=== PATIENT | male | born 1965 | race Caucasian/White ===

== ENCOUNTER 2017-06-11 11:35 | Emergency (ER) | payer OTHER ==
[~2017-06-11] VITALS: Ht 177.8 cm; Wt 83.9 kg
[2017-06-11 12:27] VITALS: BP 161/97
--- NOTE | 2017-06-11 12:42 | PHYS DOC ---
Past Medical History Past Medical History: Hypertension Past Surgical History: Other Additional Past Surgical Histo: RIGHT FINGER Alcohol Use: None Drug Use: None Adult General Chief Complaint Chief Complaint: LACERATION/AVULSION [facility] HPI Patient is a 51 year old male presents to the emergency department stating that he wash prednisone. He states that he was laying tape daily yesterday and when he went to pull on it and then came up. He was using a box knife to cut the tape in the boxing inspector knife slipped and hit him in to the left forearm. Patient has an approximately 2 cm laceration noted. No bleeding or drainage coming from the site. Patient has full range of motion of the lower extremity. Patient is unsure when his last tetanus immunization occurred. Review of Systems Review of Systems Constitutional: Denies fever or chills [] Eyes: Denies change in visual acuity, redness, or eye pain [] HENT: Denies nasal congestion or sore throat [] Respiratory: Denies cough or shortness of breath [] Cardiovascular: No additional information not addressed in HPI [] GI: Denies abdominal pain, nausea, vomiting, bloody stools or diarrhea [] : Denies dysuria or hematuria [] Musculoskeletal: Denies back pain or joint pain [] Integument: Denies rash or skin lesions. Laceration left forearm Neurologic: Denies headache, focal weakness or sensory changes [] Endocrine: Denies polyuria or polydipsia [] Physical Exam Physical Exam Constitutional: Well developed, well nourished, no acute distress, non-toxic appearance. [] HENT: Normocephalic, atraumatic, bilateral external ears normal, oropharynx moist, no oral exudates, nose normal. [] Eyes: PERRLA, EOMI, conjunctiva normal, no discharge. [] Neck: Normal range of motion, no tenderness, supple, no stridor. [] Cardiovascular:Heart rate regular rhythm,] Lungs & Thorax: No respiratory distress noted Skin: Warm, dry, no erythema, no rash. 2 cm laceration noted to the left forearm. Site appears to be clean. Site was washed with soap and water. Site was then Steri-Stripped closed. Back: No tenderness Extremities: No tenderness, no cyanosis, no clubbing, ROM intact, no edema. [] Neurologic: Alert and oriented X 3, normal motor function, normal sensory function, no focal deficits noted. [] Psychologic: Affect normal, judgement normal, mood normal. [] Current Patient Data Vital Signs Vital Signs Date Time Temp Pulse Resp B/P (MAP) Pulse Ox O2 Delivery O2 Flow Rate FiO2 06/11/17 12:27 97.8 82 18 96 Room Air 97.8 EKG EKG [] Radiology/Procedures Radiology/Procedures [] Course & Med Decision Making Course & Med Decision Making Pertinent Labs and Imaging studies reviewed. (See chart for details) Patient's tetanus immunization was updated here in the emergency department. He was recommended to keep the area clean and dry. Signs and symptoms of infection was provided to the patient. Patient will be discharged home in stable condition. All questions were answered at patient's bedside. [] Dragon Disclaimer Dragon Disclaimer This electronic medical record was generated, in whole or in part, using a voice recognition dictation system. Departure Departure Impression: Primary Impression: Laceration Disposition: 01 HOME, SELF-CARE Condition: STABLE Referrals: NO PCP (PCP) Patient Instructions: Laceration Care, Adult, [id number], Sterile Tape Wound Closure Additional Instructions: Activity as tolerated. Keep the area clean and dry. Clean the site with soap and water daily. Watch for signs and symptoms of infection: Redness, warmth, tenderness or any yellow/greenish drainage of a come from the site. Steri-Strips should follow-up in approximately 7-10 days. Return back to emergency prior signs symptoms of become worse. ISMAEL ERNANDEZ APRN Jun 11, 2017 12:42
[2017-06-11] MEDS ORDERED: DIPHTH,PERTUSS(ACELL),TET TOX 0.5 ML DISP.SYRIN. VAX IM ONE (13:15)
== END 2017-06-11 13:33 | disposition home or self-care (01) ==
LOC: ER 11:35
DX: S51.812A Laceration without foreign body of left forearm, initial encounter (principal); I10 Essential (primary) hypertension; W26.0XXA Contact with knife, initial encounter; Y93.89 Activity, other specified; Y99.8 Other external cause status; Y92.89 Other specified places as the place of occurrence of the external cause
CPT/HCPCS: 90471; 90715; 99283-25

== ENCOUNTER 2019-12-28 17:24 | Inpatient (IN) | payer BC ==
[2019-12-28] VITALS (9 sets, daily range): BP systolic 109–158; BP diastolic 74–89
[~2019-12-28] VITALS: Ht 176.5 cm; Wt 91.0 kg
[2019-12-28] MEDS ORDERED: SEVOFLURANE 61 TO 120 MINUTES. IH ONE (17:29)
[2019-12-28] MEDS ORDERED: ROCURONIUM 50 MG/5 ML VIAL. ONE (17:30)
[2019-12-28] MEDS ORDERED: NEOSTIGMINE METHYLSULFATE 5 MG/5 ML SYRINGE. ONE (17:30)
[2019-12-28] MEDS ORDERED: fentaNYL PF VIAL 100 MCG/2 ML VIAL ONE (17:30)
[2019-12-28] MEDS ORDERED: SUCCINYLCHOLINE 200 MG/10 ML VIAL. ONE (17:30)
[2019-12-28] MEDS ORDERED: GLYCOPYRROLATE 1 MG/5 ML VIAL. ONE (17:30)
[2019-12-28] MEDS ORDERED: MIDAZOLAM HCL/PF 2 MG/2 ML VIAL. ONE (17:30)
[2019-12-28] MEDS ORDERED: KETOROLAC 30 MG/ML VIAL. ONE (17:31)
[2019-12-28] MEDS ORDERED: PROPOFOL 20 ML IV ONE (17:31)
[2019-12-28] MEDS ORDERED: DEXAMETHASONE SOD PHOS 4 MG/ML VIAL ONE (17:31)
[2019-12-28] MEDS ORDERED: LIDOCAINE 2% PF 5 ML VIAL. ONE (17:31)
[2019-12-28] MEDS ORDERED: ONDANSETRON PF 4 MG/2 ML VIAL. ONE (17:31)
[2019-12-28] MEDS ORDERED: BUPIVACAINE-EPI 0.5%-1:200000 MPF 30 ML VIAL. ONE (17:34)
--- NOTE | 2019-12-28 17:40 | PDOC2 ---
CONSULT Date of Consult Date of Consult DATE: 12/28/19 TIME: 17:35 Reason for Consult Reason for Consult: acute appendicitis Referring Physician Referring Physician: [facility] ED Identification/Chief Complaint Chief Complaint RLQ pain Source Source: Chart review, Patient History of Present Illness Reason for Visit: Rafy is a 54 yo male who presented to the [facility] ED and CT there showed an acute appendicitis. He is brought for appendectomy Past Medical History Cardiovascular: HTN Past Surgical History Past Surgical History: Hernia Repair Family History Family History: No Significant Social History Quit ALCOHOL: none Current Medications Current Medications Current Medications Sevoflurane (Ultane) 60 ml STK-MED ONCE IH ; Start 12/28/19 at 17:29; Stop 12/28/19 at 17:30; Status DC Midazolam HCl (Versed) 2 mg STK-MED ONCE .ROUTE ; Start 12/28/19 at 17:30; Stop 12/28/19 at 17:30; Status DC Fentanyl Citrate (Fentanyl 2ml Vial) 100 mcg STK-MED ONCE .ROUTE ; Start 12/28/19 at 17:30; Stop 12/28/19 at 17:30; Status DC Glycopyrrolate (Robinul) 1 mg STK-MED ONCE .ROUTE ; Start 12/28/19 at 17:30; Stop 12/28/19 at 17:31; Status DC Neostigmine [place] (Neostigmine Methylsulfate) 5 mg STK-MED ONCE .ROUTE ; Start 12/28/19 at 17:30; Stop 12/28/19 at 17:31; Status DC Rocuronium [place] (Zemuron) 50 mg STK-MED ONCE .ROUTE ; Start 12/28/19 at 17:30; Stop 12/28/19 at 17:31; Status DC Succinylcholine Chloride (Anectine) 200 mg STK-MED ONCE .ROUTE ; Start 12/28/19 at 17:30; Stop 12/28/19 at 17:31; Status DC Dexamethasone Sodium Phosphate (Decadron) 4 mg STK-MED ONCE .ROUTE ; Start 12/28/19 at 17:31; Stop 12/28/19 at 17:31; Status DC Ondansetron HCl (Zofran) 4 mg STK-MED ONCE .ROUTE ; Start 12/28/19 at 17:31; Stop 12/28/19 at 17:31; Status DC Ketorolac Tromethamine (Toradol 30mg Vial) 30 mg STK-MED ONCE .ROUTE ; Start 12/28/19 at 17:31; Stop 12/28/19 at 17:31; Status DC Lidocaine HCl (Lidocaine Pf 2% Vial) 5 ml STK-MED ONCE .ROUTE ; Start 12/28/19 at 17:31; Stop 12/28/19 at 17:31; Status DC Propofol 20 ml @ As Directed STK-MED ONCE IV ; Start 12/28/19 at 17:31; Stop 12/28/19 at 17:31; Status DC Bupivacaine HCl/ Epinephrine Bitart (Sensorcain-Epi 0.5%-1:550053 Mpf) 30 ml STK-MED ONCE .ROUTE ; Start 12/28/19 at 17:34; Stop 12/28/19 at 17:34; Status DC Allergies Allergies: Coded Allergies: prochlorperazine (Verified Allergy, Unknown, 06/11/17) ROS Review of System negative with exception of present complaints Physical Exam General: Alert, No acute distress HEENT: Atraumatic Lungs: Normal air movement Heart: Regular rate Abdomen: Soft, Other (TTP in the RLQ) Extremities: No clubbing Neuro: Normal speech Labs Labs results from [facility] are reviewed Images Images CT done at [facility] is reviewed Assessment/Plan Assessment/Plan acute appendicitis explained risks of appendectomy including but not limited to bleeding, infection, injury to surrounding structures requiring more surgery later, possible open procedure he will proceed Thanks for consult ALICE BARRERA MD Dec 28, 2019 17:40
[2019-12-28] MEDS: IV RINGERS,LACTATED 1000ML 1,000 ML IV SCH ×2 (17:45→19:43)
[2019-12-28] MEDS ORDERED: MORPHINE SULFATE 2 MG/ML VIAL. IV PRN (18:00)
[2019-12-28] MEDS ORDERED: ONDANSETRON PF 4 MG/2 ML VIAL. IV PRN (18:00)
[2019-12-28] MEDS ORDERED: LIDOCAINE 1% PF 2 ML VIAL. ID PRN (18:00)
[2019-12-28] MEDS ORDERED: PROCHLORPERAZINE 10 MG/2 ML VIAL. IV PRN (18:00)
[2019-12-28] MEDS ORDERED: HYDROmorphone 2 MG/ML VIAL IV PRN ×2 (18:00→19:15)
[2019-12-28] MEDS ORDERED: fentaNYL PF VIAL 100 MCG/2 ML VIAL IV PRN ×2 (18:00)
[2019-12-28] MEDS: IV NORMAL SALINE 1000ML BAG 1,000 ML IV SCH (19:13)
[2019-12-28] MEDS ORDERED: NALOXONE 0.4 MG/ML VIAL. IV PRN (19:15)
[2019-12-28] MEDS ORDERED: DEXTROSE 50% 25 GM / 50ML DISP.SYRIN. IV PRN (19:15)
[2019-12-28] MEDS ORDERED: 0.9 % SODIUM CHLORIDE 10 ML DISP.SYRIN. IV PRN (19:15)
--- NOTE | 2019-12-28 19:23 | PDOC ---
BRIEF OPERATIVE NOTE Date: Dec 28, 2019 Pre-Op Diagnosis acute appendicitis Post-Op Diagnosis gangrenous appendicitis Procedure Performed l/s appendectomy Surgeon Jose Anesthesia Type: General Blood Loss 10cc IV Fluid 1200cc Urine Output 200cc Specimens Obtained appendix Findings gangrenous appendicitis Complications none Operative Note Wk # [id number] ALICE BARRERA MD Dec 28, 2019 19:23
--- NOTE | 2019-12-28 19:44 | OP ---
DATE OF SURGERY: 12/28/2019 PREOPERATIVE DIAGNOSIS: Acute appendicitis. POSTOPERATIVE DIAGNOSIS: Gangrenous appendicitis. PROCEDURE: Laparoscopic appendectomy. SURGEON: Tate Barrera MD ANESTHESIA: General endotracheal. ESTIMATED BLOOD LOSS: 10 mL. INTRAVENOUS FLUIDS: 1200 mL. URINE OUTPUT: 200 mL. FINDINGS: The appendix was gangrenous and friable without obvious periappendiceal abscess. DESCRIPTION OF PROCEDURE: The patient brought to the operating suite, given a general endotracheal anesthetic. Randle catheter placed to dependent drainage and the abdomen prepped and draped in usual sterile fashion. A supraumbilical incision was infiltrated with local anesthetic, incised and a 5 mm Visiport used to gain access into the abdominal cavity, taking care to avoid injury to abdominal contents. Pneumoperitoneum established. Camera inserted and under direct vision, the suprapubic and left lower quadrant ports were placed. The supraumbilical port converted to 12 mm for instrumentation. Table in Trendelenburg rolled to the left. We identified the base of the appendix and created an opening between it and the mesoappendix. This allowed passage of the Endo-LORENZO tissue load to amputate the appendix. Similarly, a vascular load was used on the mesoappendix. Hemostasis augmented with some medium large clips and the appendix was placed in an EndoCatch bag. A 19-Slovak round Javy drain was brought through a right upper quadrant stab wound and placed in the pericolic gutter and true pelvis. Secured with a silk stitch. Table returned to level. Appendix delivered through the supraumbilical port site, which was then closed with 0 Vicryl suture. At 6 cm of water intra-abdominal pressure, no bleeding from the umbilical closure site or from the left lower quadrant port site or suprapubic port site after their removal. Skin incisions closed loosely with ang. Randle catheter removed. The patient was awakened from his anesthetic and taken to the recovery room in satisfactory condition. TATE BARRERA MD DR: RHONDA/tyler JOB#: [id number] / [id number]
--- NOTE | 2019-12-28 19:45 | NUR ---
The patient, JACKLYN BRIZUELA, 54 y/o, M admitted by ABRAM SCHUMACHER III, DO, was given written information regarding hospital policies, unit procedures and contact persons. RN received report from Ivana CURTIS in PACU at 194, patient was transported from PACU to room 418 at 2000 via bed. RN performed a head to toe assessment at that time, VSS, temp 99.4, and pain rated a 5/10. Bed is in lowest locked position and call light within reach. Valuables were checked and left in the room with the patient. RN will continue to monitor patient closely.
[2019-12-28] MEDS: DOCUSATE SODIUM 100 MG CAPSULE. PO SCH (21:12)
[2019-12-28] MEDS: POTASSIUM CL 20MEQ-0.45% NACL 1,000 ML IV SCH (22:36)
[2019-12-29] MEDS: oxyCODONE/APAP 5/325 1 TAB TABLET PO PRN ×4 (02:20→18:14)
[2019-12-29 02:42] VITALS: BP 127/73
[2019-12-29] MEDS ORDERED: INFLUENZA VAX SCREEN BY RX. MC PRN (04:30)
[2019-12-29 05:37] LABS: BASO % 0 % (0-3); EOS % 0 % (0-3); HEMATOCRIT 43.2 % (39.0-53.0); HEMOGLOBIN 14.7 g/dL (13.0-17.5); LYMPH # 0.4 x10^3/uL (1.0-4.8); LYMPH % 2 % (24-48); MEAN CORPUSCULAR HEMOGLOBIN 30 pg (25-35); MEAN CORPUSCULAR HGB CONC 34 g/dL (31-37); MEAN CORPUSCULAR VOLUME 88 fL (79-100); MONO % 6 % (0-9); NEUT # 16.6 x10^3/uL (1.8-7.7); NEUT % 92 % (31-73); PLATELET COUNT 189 x10^3/uL (140-400); RED BLOOD COUNT 4.89 x10^6/uL (4.30-5.70); RED CELL DISTRIBUTION WIDTH 13.8 % (11.5-14.5)
[2019-12-29 05:48] LABS: CALCIUM 8.5 mg/dL (8.5-10.1); CREATININE 1.1 mg/dL (0.7-1.3); GFR 69.5; POTASSIUM 4.2 mmol/L (3.5-5.1)
[2019-12-29 07:00] VITALS: BP 125/79
[2019-12-29] MEDS ORDERED: FLU VAX QS 2019-20 (36MOS+)/PF 0.5 ML SYRINGE. VAX IM ONE (09:00)
[2019-12-29] MEDS: POTASSIUM CL 20MEQ-0.45% NACL 1,000 ML IV SCH ×2 (09:18→13:12)
[2019-12-29] MEDS: DOCUSATE SODIUM 100 MG CAPSULE. PO SCH ×2 (09:19→22:10)
[2019-12-29] MEDS: ENOXAPARIN 40 MG/0.4 ML SYRINGE. SQ SCH (09:20)
--- NOTE | 2019-12-29 09:40 | PDOC1 ---
History and Physical Date of Admission Date of Admission DATE: 12/29/19 TIME: 09:39 Identification/Chief Complaint Chief Complaint TRANSFER FROM [facility] Past Medical History Past Medical History Past Medical History Cardiovascular: HTN Past Surgical History Past Surgical History: Hernia Repair Family History Family History: HTN Social History Quit ALCOHOL: none Cardiovascular: HTN Hepatobiliary: No pertinent hx Psych: No pertinent hx Infectious disease: No pertinent hx ENT: No pertinent hx Endocrine: Diabetes Dermatology: No pertinent hx Past Surgical History Past Surgical History: Hernia Repair Family History Family History: No Significant, Hypertension Social History Smoke: No ALCOHOL: none Drugs: None Current Medications Current Medications Current Medications Sevoflurane (Ultane) 60 ml STK-MED ONCE IH ; Start 12/28/19 at 17:29; Stop 12/28/19 at 17:30; Status DC Midazolam HCl (Versed) 2 mg STK-MED ONCE .ROUTE ; Start 12/28/19 at 17:30; Stop 12/28/19 at 17:30; Status DC Fentanyl Citrate (Fentanyl 2ml Vial) 100 mcg STK-MED ONCE .ROUTE ; Start 12/28/19 at 17:30; Stop 12/28/19 at 17:30; Status DC Glycopyrrolate (Robinul) 1 mg STK-MED ONCE .ROUTE ; Start 12/28/19 at 17:30; Stop 12/28/19 at 17:31; Status DC Neostigmine [place] (Neostigmine Methylsulfate) 5 mg STK-MED ONCE .ROUTE ; Start 12/28/19 at 17:30; Stop 12/28/19 at 17:31; Status DC Rocuronium [place] (Zemuron) 50 mg STK-MED ONCE .ROUTE ; Start 12/28/19 at 17:30; Stop 12/28/19 at 17:31; Status DC Succinylcholine Chloride (Anectine) 200 mg STK-MED ONCE .ROUTE ; Start 12/28/19 at 17:30; Stop 12/28/19 at 17:31; Status DC Dexamethasone Sodium Phosphate (Decadron) 4 mg STK-MED ONCE .ROUTE ; Start 12/28/19 at 17:31; Stop 12/28/19 at 17:31; Status DC Ondansetron HCl (Zofran) 4 mg STK-MED ONCE .ROUTE ; Start 12/28/19 at 17:31; Stop 12/28/19 at 17:31; Status DC Ketorolac Tromethamine (Toradol 30mg Vial) 30 mg STK-MED ONCE .ROUTE ; Start 12/28/19 at 17:31; Stop 12/28/19 at 17:31; Status DC Lidocaine HCl (Lidocaine Pf 2% Vial) 5 ml STK-MED ONCE .ROUTE ; Start 12/28/19 at 17:31; Stop 12/28/19 at 17:31; Status DC Propofol 20 ml @ As Directed STK-MED ONCE IV ; Start 12/28/19 at 17:31; Stop 12/28/19 at 17:31; Status DC Metronidazole 100 ml @ 100 mls/hr 1X PREOP PRN IV PER PROTOCOL Last administered on 12/28/19at 17:37; Start 12/28/19 at 17:45; Stop 12/29/19 at 18:45 Bupivacaine HCl/ Epinephrine Bitart (Sensorcain-Epi 0.5%-1:023188 Mpf) 30 ml STK-MED ONCE .ROUTE Last administered on 12/28/19at 18:11; Start 12/28/19 at 17:34; Stop 12/28/19 at 17:34; Status DC Metronidazole 100 ml @ As Directed STK-MED ONCE IV ; Start 12/28/19 at 17:36; Stop 12/28/19 at 17:36; Status DC Metronidazole 100 ml @ 100 mls/hr 1X ONCE IV ; Start 12/28/19 at 17:45; Stop 12/28/19 at 18:44; Status DC Ondansetron HCl (Zofran) 4 mg PRN Q6HRS PRN IV NAUSEA/VOMITING; Start 12/28/19 at 18:00; Stop 12/29/19 at 17:59 Fentanyl Citrate (Fentanyl 2ml Vial) 25 mcg PRN Q5MIN PRN IV MILD PAIN 1-3; Start 12/28/19 at 18:00; Stop 12/29/19 at 17:59 Fentanyl Citrate (Fentanyl 2ml Vial) 50 mcg PRN Q5MIN PRN IV MODERATE TO SEVERE PAIN; Start 12/28/19 at 18:00; Stop 12/29/19 at 17:59 Morphine Sulfate (Morphine Sulfate) 1 mg PRN Q10MIN PRN IV SEVERE PAIN 7-10; Start 12/28/19 at 18:00; Stop 12/29/19 at 17:59 Ringer's Solution 1,000 ml @ 30 mls/hr Q24H IV Last administered on 12/28/19at 19:43; Start 12/28/19 at 17:50; Stop 12/29/19 at 05:49; Status DC Lidocaine HCl (Xylocaine-Mpf 1% 2ml Vial) 2 ml PRN 1X PRN ID PRIOR TO IV START; Start 12/28/19 at 18:00; Stop 12/29/19 at 17:59 Hydromorphone HCl (Dilaudid) 0.5 mg PRN Q10MIN PRN IV SEV PAIN, Second choice; Start 12/28/19 at 18:00; Stop 12/29/19 at 17:59 Prochlorperazine Edisylate (Compazine) 5 mg PACU PRN PRN IV NAUSEA, MRX1; Start 12/28/19 at 18:00; Stop 12/29/19 at 17:59; Status UNV Enoxaparin Sodium (Lovenox 40mg Syringe) 40 mg DAILY SQ Last administered on 12/29/19at 09:20; Start 12/29/19 at 09:00 Sodium Chloride (Normal Saline Flush) 3 ml QSHIFT PRN IV AFTER MEDS AND BLOOD DRAWS; Start 12/28/19 at 19:15 Potassium Chloride/Sodium Chloride 1,000 ml @ 125 mls/hr Q8H IV Last administered on 12/29/19at 09:18; Start 12/28/19 at 20:00 Dextrose (Dextrose 50%-Water Syringe) 12.5 gm PRN Q15MIN PRN IV SEE COMMENTS; Start 12/28/19 at 19:15 Oxycodone/ Acetaminophen (Percocet 5/325) 1 tab PRN Q4HRS PRN PO MILD PAIN, 1ST CHOICE Last administered on 12/29/19at 09:19; Start 12/28/19 at 19:15 Oxycodone/ Acetaminophen (Percocet 5/325) 2 tab PRN Q4HRS PRN PO MODERATE PAIN, SEVERE PAIN; Start 12/28/19 at 19:15 Naloxone HCl (Narcan) 0.4 mg PRN Q2MIN PRN IV SEE INSTRUCTIONS; Start 12/28/19 at 19:15 Sodium Chloride 1,000 ml @ 25 mls/hr Q24H IV ; Start 12/28/19 at 19:13 Hydromorphone HCl (Dilaudid) 1 mg PRN Q4HRS PRN IV SEVERE PAIN 7-10; Start 12/28/19 at 19:15 Docusate Sodium (Colace) 100 mg BID PO Last administered on 12/29/19at 09:19; Start 12/28/19 at 21:00 Ondansetron HCl (Zofran) 4 mg PRN Q6HRS PRN IVP NAUESA, 1ST CHOICE; Start 12/28/19 at 19:15 Cefazolin Sodium/ Dextrose 50 ml @ 100 mls/hr Q8HRS IV Last administered on 12/29/19at 05:22; Start 12/28/19 at 22:00 Metronidazole 100 ml @ 100 mls/hr Q12HR IV Last administered on 12/29/19at 09:18; Start 12/28/19 at 21:00 Info (FLU VACCINE SCREEN per RX) 1 each PRN 1X PRN MC SEE COMMENTS; Start 12/29/19 at 04:30; Status UNV Influenza Virus Vaccine Quadrival (Afluria Quad 2019-20 (3yr Up) Syringe) 0.5 ml ONCE ONCE VAX IM Last administered on 12/29/19at 09:21; Start 12/29/19 at 09:00; Stop 12/29/19 at 09:01; Status DC Allergies Allergies: Coded Allergies: prochlorperazine (Verified Allergy, Unknown, 06/11/17) ROS Review of System 14 PT ROS OTHERWISE NEG General: No: Chills, Night Sweats, Fatigue, Malaise, Appetite, Other PSYCHOLOGICAL ROS: No: Anxiety, Behavioral Disorder, Concentration difficultie, Decreased libido, Depression, Disorientation, Hallucinations, Hostility, Irritablity, Memory difficulties, Mood Swings, Obsessive thoughts, Physical abuse, Sexual abuse, Sleep disturbances, Suicidal ideation, Other Eyes: No Blurry vision, No Decreased vision, No Double vision, No Dry eyes, No Excessive tearing, No Eye Pain, No Itchy Eyes, No Loss of vision, No Photophobia, No Scotomata, No Uses contacts, No Uses glasses, No Other HEENT: No: Heacaches, Visual Changes, Hearing change, Nasal congestion, Nasal discharge, Oral lesions, Sinus pain, Sore Throat, Epistaxis, Sneezing, Snoring, Tinnitus, Vertigo, Vocal changes, Other Hematological and Lymphatic: No: Bleeding Problems, Blood Clots, Blood Transfusions, Brusing, Night Sweats, Pallor, Swollen Lymph Nodes, Other Breast: No New/Changing Breast Lumps, No Nipple changes, No Nipple discharge, No Other Respiratory: No: Cough, Hemoptysis, Orthopnea, Pleuritic Pain, Shortness of breath, SOB with excertion, Sputum Changes, Stridor, Tachypnea, Wheezing, Other Cardiovascular: No Chest Pain, No Palpitations, No Orthopnea, No Paroxysmal Noc. Dyspnea, No Edema, No Lt Headedness, No Other Gastrointestinal: Yes Abdominal Pain Genitourinary: No Dysuria, No Frequency, No Incontinence, No Hematuria, No Retention, No Discharge, No Urgency, No Pain, No Flank Pain, No Other, No , No , No , No , No , No , No Musculoskeletal: No Gait Disturbance, No Joint Pain, No Joint Stiffness, No Joint Swelling, No Muscle Pain, No Muscular Weakness, No Pain In:, No Swelling In:, No Other Neurological: No Behavorial Changes, No Bowel/Bladder ControlChng, No Confusion, No Dizziness, No Gait Disturbance, No Headaches, No Impaired Coord/balance, No Memory Loss, No Numbness/Tingling, No Seizures, No Speech Problems, No Tremors, No Visual Changes, No Weakness, No Other Skin: No Dry Skin, No Eczema, No Hair Changes, No Lumps, No Mole Changes, No Mottling, No Nail Changes, No Pruritus, No Rash, No Skin Lesion Changes, No Other, No Acne Physical Exam General: Alert, Oriented X3, Cooperative, No acute distress HEENT: PERRLA Lungs: Clear to auscultation, Normal air movement Heart: RRR Abdomen: No hepatosplenomegaly Rectal Exam: not examined PELVIC: Examination not indicated Extremities: No cyanosis Skin: No breakdown Neuro: Normal speech, Cranial nerves 3-12 NL Psych/Mental Status: Mental status NL, Mood NL Vitals Vitals Vital Signs Date Time Temp Pulse Resp B/P (MAP) Pulse Ox O2 Delivery O2 Flow Rate FiO2 12/29/19 09:19 16 Nasal Cannula 2.0 12/29/19 07:00 97.9 83 125/79 (94) 96 97.9 Labs Labs Laboratory Tests Test 12/29/19 04:40 White Blood Count 18.0 x10^3/uL (4.0-11.0) Red Blood Count 4.89 x10^6/uL (4.30-5.70) Hemoglobin 14.7 g/dL (13.0-17.5) Hematocrit 43.2 % (39.0-53.0) Mean Corpuscular Volume 88 fL (79-100) Mean Corpuscular Hemoglobin 30 pg (25-35) Mean Corpuscular Hemoglobin Concent 34 g/dL (31-37) Red Cell Distribution Width 13.8 % (11.5-14.5) Platelet Count 189 x10^3/uL (140-400) Neutrophils (%) (Auto) 92 % (31-73) Lymphocytes (%) (Auto) 2 % (24-48) Monocytes (%) (Auto) 6 % (0-9) Eosinophils (%) (Auto) 0 % (0-3) Basophils (%) (Auto) 0 % (0-3) Neutrophils # (Auto) 16.6 x10^3/uL (1.8-7.7) Lymphocytes # (Auto) 0.4 x10^3/uL (1.0-4.8) Monocytes # (Auto) 1.0 x10^3/uL (0.0-1.1) Eosinophils # (Auto) 0.0 x10^3/uL (0.0-0.7) Basophils # (Auto) 0.0 x10^3/uL (0.0-0.2) Sodium Level 140 mmol/L (136-145) Potassium Level 4.2 mmol/L (3.5-5.1) Chloride Level 105 mmol/L (98-107) Carbon Dioxide Level 24 mmol/L (21-32) Anion Gap 11 (6-14) Blood Urea Nitrogen 16 mg/dL (8-26) Creatinine 1.1 mg/dL (0.7-1.3) Estimated GFR (Cockcroft-Gault) 69.5 Glucose Level 159 mg/dL (70-99) Calcium Level 8.5 mg/dL (8.5-10.1) Laboratory Tests Test 12/29/19 04:40 White Blood Count 18.0 x10^3/uL (4.0-11.0) Red Blood Count 4.89 x10^6/uL (4.30-5.70) Hemoglobin 14.7 g/dL (13.0-17.5) Hematocrit 43.2 % (39.0-53.0) Mean Corpuscular Volume 88 fL (79-100) Mean Corpuscular Hemoglobin 30 pg (25-35) Mean Corpuscular Hemoglobin Concent 34 g/dL (31-37) Red Cell Distribution Width 13.8 % (11.5-14.5) Platelet Count 189 x10^3/uL (140-400) Neutrophils (%) (Auto) 92 % (31-73) Lymphocytes (%) (Auto) 2 % (24-48) Monocytes (%) (Auto) 6 % (0-9) Eosinophils (%) (Auto) 0 % (0-3) Basophils (%) (Auto) 0 % (0-3) Neutrophils # (Auto) 16.6 x10^3/uL (1.8-7.7) Lymphocytes # (Auto) 0.4 x10^3/uL (1.0-4.8) Monocytes # (Auto) 1.0 x10^3/uL (0.0-1.1) Eosinophils # (Auto) 0.0 x10^3/uL (0.0-0.7) Basophils # (Auto) 0.0 x10^3/uL (0.0-0.2) Sodium Level 140 mmol/L (136-145) Potassium Level 4.2 mmol/L (3.5-5.1) Chloride Level 105 mmol/L (98-107) Carbon Dioxide Level 24 mmol/L (21-32) Anion Gap 11 (6-14) Blood Urea Nitrogen 16 mg/dL (8-26) Creatinine 1.1 mg/dL (0.7-1.3) Estimated GFR (Cockcroft-Gault) 69.5 Glucose Level 159 mg/dL (70-99) Calcium Level 8.5 mg/dL (8.5-10.1) VTE Prophylaxis Ordered VTE Prophylaxis Devices: Yes VTE Pharmacological Prophylaxi: Yes Assessment/Plan Assessment/Plan impression Acute appendicitis./Gangrenous appendicitis. admit Laparoscopic appendectomy. IV Zosyn CBC in am RECORD drain output AMANDA CAMP MD Dec 29, 2019 09:40
--- NOTE | 2019-12-29 10:11 | PDOC ---
SURGICAL PROGRESS NOTE Subjective POD 1 l/s appendectomy some pain no n/v Vital Signs Vital Signs Date Time Temp Pulse Resp B/P (MAP) Pulse Ox O2 Delivery O2 Flow Rate FiO2 12/29/19 09:19 16 Nasal Cannula 2.0 12/29/19 07:00 97.9 83 125/79 (94) 96 97.9 I&O Intake and Output 12/29/19 07:00 Intake Total 2200 ml Output Total 1420 ml Balance 780 ml Intake Oral 700 ml IV Total 1500 ml Output Urine Total 1200 ml Drainage Total 20 ml Estimated Blood Loss 200 ml PATIENT HAS A PIZANO: No General: Alert, Oriented X3, No acute distress Abdomen: Other (distended, soft, HEMA with some serosanguineous output) Labs Laboratory Tests Test 12/29/19 04:40 White Blood Count 18.0 x10^3/uL (4.0-11.0) Red Blood Count 4.89 x10^6/uL (4.30-5.70) Hemoglobin 14.7 g/dL (13.0-17.5) Hematocrit 43.2 % (39.0-53.0) Mean Corpuscular Volume 88 fL (79-100) Mean Corpuscular Hemoglobin 30 pg (25-35) Mean Corpuscular Hemoglobin Concent 34 g/dL (31-37) Red Cell Distribution Width 13.8 % (11.5-14.5) Platelet Count 189 x10^3/uL (140-400) Neutrophils (%) (Auto) 92 % (31-73) Lymphocytes (%) (Auto) 2 % (24-48) Monocytes (%) (Auto) 6 % (0-9) Eosinophils (%) (Auto) 0 % (0-3) Basophils (%) (Auto) 0 % (0-3) Neutrophils # (Auto) 16.6 x10^3/uL (1.8-7.7) Lymphocytes # (Auto) 0.4 x10^3/uL (1.0-4.8) Monocytes # (Auto) 1.0 x10^3/uL (0.0-1.1) Eosinophils # (Auto) 0.0 x10^3/uL (0.0-0.7) Basophils # (Auto) 0.0 x10^3/uL (0.0-0.2) Sodium Level 140 mmol/L (136-145) Potassium Level 4.2 mmol/L (3.5-5.1) Chloride Level 105 mmol/L (98-107) Carbon Dioxide Level 24 mmol/L (21-32) Anion Gap 11 (6-14) Blood Urea Nitrogen 16 mg/dL (8-26) Creatinine 1.1 mg/dL (0.7-1.3) Estimated GFR (Cockcroft-Gault) 69.5 Glucose Level 159 mg/dL (70-99) Calcium Level 8.5 mg/dL (8.5-10.1) Laboratory Tests Test 12/29/19 04:40 White Blood Count 18.0 x10^3/uL (4.0-11.0) Red Blood Count 4.89 x10^6/uL (4.30-5.70) Hemoglobin 14.7 g/dL (13.0-17.5) Hematocrit 43.2 % (39.0-53.0) Mean Corpuscular Volume 88 fL (79-100) Mean Corpuscular Hemoglobin 30 pg (25-35) Mean Corpuscular Hemoglobin Concent 34 g/dL (31-37) Red Cell Distribution Width 13.8 % (11.5-14.5) Platelet Count 189 x10^3/uL (140-400) Neutrophils (%) (Auto) 92 % (31-73) Lymphocytes (%) (Auto) 2 % (24-48) Monocytes (%) (Auto) 6 % (0-9) Eosinophils (%) (Auto) 0 % (0-3) Basophils (%) (Auto) 0 % (0-3) Neutrophils # (Auto) 16.6 x10^3/uL (1.8-7.7) Lymphocytes # (Auto) 0.4 x10^3/uL (1.0-4.8) Monocytes # (Auto) 1.0 x10^3/uL (0.0-1.1) Eosinophils # (Auto) 0.0 x10^3/uL (0.0-0.7) Basophils # (Auto) 0.0 x10^3/uL (0.0-0.2) Sodium Level 140 mmol/L (136-145) Potassium Level 4.2 mmol/L (3.5-5.1) Chloride Level 105 mmol/L (98-107) Carbon Dioxide Level 24 mmol/L (21-32) Anion Gap 11 (6-14) Blood Urea Nitrogen 16 mg/dL (8-26) Creatinine 1.1 mg/dL (0.7-1.3) Estimated GFR (Cockcroft-Gault) 69.5 Glucose Level 159 mg/dL (70-99) Calcium Level 8.5 mg/dL (8.5-10.1) Assessment/Plan POD 1 l/s appendectomy for gangrenous appendicitis have asked ID for recs ALICE BARRERA MD Dec 29, 2019 10:11
[2019-12-29 11:00] VITALS: BP 129/83
[2019-12-29 14:05] LABS: % BANDS 19 % (0-9); % LYMPHS 2 % (24-48); % MONOS 4 % (0-10); % SEGS 75 % (35-66)
[2019-12-29 14:06] LABS: PLT ESTIMATE ADEQUATE (ADEQUATE)
--- NOTE | 2019-12-29 14:23 | PDOC ---
Infectious Disease Note Vital Sign Vital Signs Vital Signs Date Time Temp Pulse Resp B/P (MAP) Pulse Ox O2 Delivery O2 Flow Rate FiO2 12/29/19 11:00 98.0 92 20 129/83 (98) 91 Room Air 98.0 12/29/19 09:19 2.0 Labs Lab Laboratory Tests Test 12/29/19 04:40 White Blood Count 18.0 x10^3/uL (4.0-11.0) Red Blood Count 4.89 x10^6/uL (4.30-5.70) Hemoglobin 14.7 g/dL (13.0-17.5) Hematocrit 43.2 % (39.0-53.0) Mean Corpuscular Volume 88 fL (79-100) Mean Corpuscular Hemoglobin 30 pg (25-35) Mean Corpuscular Hemoglobin Concent 34 g/dL (31-37) Red Cell Distribution Width 13.8 % (11.5-14.5) Platelet Count 189 x10^3/uL (140-400) Neutrophils (%) (Auto) 92 % (31-73) Lymphocytes (%) (Auto) 2 % (24-48) Monocytes (%) (Auto) 6 % (0-9) Eosinophils (%) (Auto) 0 % (0-3) Basophils (%) (Auto) 0 % (0-3) Neutrophils # (Auto) 16.6 x10^3/uL (1.8-7.7) Lymphocytes # (Auto) 0.4 x10^3/uL (1.0-4.8) Monocytes # (Auto) 1.0 x10^3/uL (0.0-1.1) Eosinophils # (Auto) 0.0 x10^3/uL (0.0-0.7) Basophils # (Auto) 0.0 x10^3/uL (0.0-0.2) Sodium Level 140 mmol/L (136-145) Potassium Level 4.2 mmol/L (3.5-5.1) Chloride Level 105 mmol/L (98-107) Carbon Dioxide Level 24 mmol/L (21-32) Anion Gap 11 (6-14) Blood Urea Nitrogen 16 mg/dL (8-26) Creatinine 1.1 mg/dL (0.7-1.3) Estimated GFR (Cockcroft-Gault) 69.5 Glucose Level 159 mg/dL (70-99) Calcium Level 8.5 mg/dL (8.5-10.1) Objective Assessment Gangrenous appendicitis s/p laparoscopic appendectomy, 12/28 Leukocytosis in part reactive steriods and surgery Hypertension Hyperglycemia Plan Plan of Care s/p dexamethasone, 12/28 s/p flu vaccine, Change abx to Zosyn CBC in am Monitor drain output Supportive care Thank you [id number] Attending Co-Sign Attending Co-Sign The patient was seen and interviewed as well as examined at the bedside. The chart was reviewed. The case was discussed with BUILDING CUSTODIAN. Coformulated above the plan of care. SADI CARBAJAL APRN Dec 29, 2019 14:23 MASSIEL SAUNDERS MD Dec 29, 2019 20:26
[2019-12-29 15:00] VITALS: BP 132/80
--- NOTE | 2019-12-29 15:21 | CONS ---
DATE OF CONSULTATION: 12/29/2019 INFECTIOUS DISEASE CONSULTATION REFERRING PHYSICIAN: Dr. Garcia. REASON FOR CONSULTATION: Gangrenous appendicitis. HISTORY OF PRESENT ILLNESS: This patient is a 54-year-old male who developed acute onset of abdominal pain after working an evening shift at a [employer]. He had eaten a spinach salad earlier and thought he was having gas pains. He took a Gas-X for relief. Over the following several hours, the pain shifted to the right lower quadrant area associated with nausea, vomiting and chills. A CT abdomen/pelvis showed a showed a distended appendix with moderate periappendiceal inflammatory change. No free fluid or abscess seen. Dr. Garcia performed a laparoscopic appendectomy and placement of a 19-Albanian Javy drain on . The appendix was gangrenous and friable without obvious periappendiceal abscess. He received a dose of dexamethasone preop and is currently on cefazolin and metronidazole. Denies cough, chest discomfort or shortness of air. The patient complains of abdominal pain though not as intense. He has not had a bowel movement nor passing gas. He ate some chicken earlier. He denies nausea or vomiting. Denies fevers, chills or sweats. PAST MEDICAL HISTORY: Hypertension. PAST SURGICAL HISTORY: Laparoscopic appendectomy on 12/28/2019, hernia repair. SOCIAL HISTORY: The patient is . He lives alone with his cat. He is a former smoker. He is employed at the [employer]. FAMILY HISTORY: Noncontributory. ALLERGIES: PROCHLORPERAZINE. MEDICATIONS: Cefazolin, metronidazole, one-time dose of dexamethasone on 12/28, flu vaccine, . Other medications are available and have been reviewed on the DEC. REVIEW OF SYSTEMS: Per HPI, otherwise all other review of systems are negative. PHYSICAL EXAMINATION: VITAL SIGNS: Temperature 98.0, blood pressure 129/83, heart rate 92, respiratory rate 20, pulse oximetry 91% on room air. GENERAL: The patient is propped up in bed, alert and watching TV. HEENT: Pupils equally round and reactive. Oropharynx is pink and moist. No thrush. NECK: Supple. LUNGS: Clear to auscultation. HEART: S1, S2. ABDOMEN: Obese, distended, soft, mildly tender, hypoactive bowel sounds. Right-sided drain in place. EXTREMITIES: No gross edema or cyanosis. DERMATOLOGIC: Warm to touch without signs of rash. NEUROLOGIC: Alert and answering questions appropriately. LABORATORY DATA: Today's WBC 18.0 from 6.4 on admission, hemoglobin 14.7, platelets 189,000, segs 75%, bands 19%. Sodium 140, potassium 4.2, creatinine 1.1, BUN 16, glucose 139. CT abdomen/pelvis per HPI. IMPRESSION: 1. Gangrene appendicitis, status post laparoscopic appendectomy on 12/28/2019. 2. Leukocytosis in part reactive steroids and surgery. 3. Leukocytosis. 4. Hyperglycemia. 5. Abdominal pain from above. PLAN: 1. Recommend changing cefazolin and metronidazole to Zosyn. Repeat CBC in a.m. 2. Incentive spirometry. 3. Monitor drain output and labs in am. 4. Supportive care. Thank you, Dr. Garcia, for asking us to participate in this patient's care. Should you have further questions or concerns, please call. The patient was seen and examined and plan of care implemented by Dr. Bobbi Saunders. BOBBI SAUNDERS MD DR: ANNIE/tyler JOB#: [id number] / [id number] SIXTO
[2019-12-29] MEDS: PIPERACILLIN/TAZOBACTAM 3.375 GM in IV NORMAL SALINE 50ML 50 ML IV SCH ×2 (17:23→23:24)
[2019-12-29] MEDS: IV NORMAL SALINE 1000ML BAG 1,000 ML IV SCH (17:51)
[2019-12-29 19:00] VITALS: BP 137/86
[2019-12-29] MEDS ORDERED: BISMUTH SUBSALICYLATE 262 MG/15 ML ORAL.SUSP 236ML BOTTLE. PO PRN (22:30)
[2019-12-29 23:00] VITALS: BP 152/103
[2019-12-30] VITALS (9 sets, daily range): BP systolic 79–157; BP diastolic 50–111
[2019-12-30] MEDS ORDERED: LISINOPRIL 5 MG TABLET. PO ONE (01:30)
[2019-12-30] MEDS: PIPERACILLIN/TAZOBACTAM 3.375 GM in IV NORMAL SALINE 50ML 50 ML IV SCH ×4 (05:37→23:48)
[2019-12-30] MEDS: POTASSIUM CL 20MEQ-0.45% NACL 1,000 ML IV SCH ×3 (05:38→23:48)
[2019-12-30 05:55] LABS: BASO % 0 % (0-3); EOS % 0 % (0-3); HEMATOCRIT 47.1 % (39.0-53.0); HEMOGLOBIN 16.2 g/dL (13.0-17.5); LYMPH # 0.7 x10^3/uL (1.0-4.8); LYMPH % 5 % (24-48); MEAN CORPUSCULAR HEMOGLOBIN 31 pg (25-35); MEAN CORPUSCULAR HGB CONC 34 g/dL (31-37); MEAN CORPUSCULAR VOLUME 89 fL (79-100); MONO # 1.1 x10^3/uL (0.0-1.1); MONO % 7 % (0-9); NEUT # 13.9 x10^3/uL (1.8-7.7); NEUT % 88 % (31-73); PLATELET COUNT 205 x10^3/uL (140-400); RED BLOOD COUNT 5.27 x10^6/uL (4.30-5.70); RED CELL DISTRIBUTION WIDTH 13.9 % (11.5-14.5); WHITE BLOOD COUNT 15.8 x10^3/uL (4.0-11.0)
[2019-12-30] MEDS: ENOXAPARIN 40 MG/0.4 ML SYRINGE. SQ SCH (08:29)
[2019-12-30] MEDS: DOCUSATE SODIUM 100 MG CAPSULE. PO SCH ×2 (08:30→21:00)
--- NOTE | 2019-12-30 09:39 | RAD ---
One view abdomen pelvis KUB 9:19 AM HISTORY: Constipation and abdominal distention Upright AP view abdomen pelvis Correlation is made to December 20, 2019 CT There is distended air-filled loops of small bowel with multiple fluid levels. There is some air within the right colon. There is a paucity bowel gas in the left lower quadrant and in the pelvis. IMPRESSION: Abnormal bowel gas pattern suggesting a distal small bowel obstruction versus left-sided colitis. Electronically signed by: Kashif Aviles III, MD (12/30/2019 9:36 AM) [id number]
--- NOTE | 2019-12-30 10:38 | PDOC ---
Infectious Disease Note Subjective Subjective Feels miserable d/t abdominal distention Diminished appetite, + hiccups Less abdominal pain + drainage from drain No fevers/chills/N/V/BM ROS ROS per HPI Vital Sign Vital Signs Vital Signs Date Time Temp Pulse Resp B/P (MAP) Pulse Ox O2 Delivery O2 Flow Rate FiO2 12/30/19 07:00 97.9 122 18 148/109 (122) 94 Room Air 97.9 12/30/19 03:00 2.0 Physical Exam PHYSICAL EXAM GENERAL: Propped up in bed, alert, + hiccups HEENT: Pupils equally round and reactive. Oropharynx is pink and moist. No thrush. NECK: Supple. LUNGS: Clear to auscultation. HEART: S1, S2. ABDOMEN: Obese, distended, mildly tender, hypoactive bowel sounds. HEMA intact - serous drainage EXTREMITIES: No gross edema or cyanosis. DERMATOLOGIC: Warm to touch without signs of rash. NEUROLOGIC: Alert and answering questions appropriately. PIV Labs Lab Laboratory Tests Test 12/30/19 05:00 White Blood Count 15.8 x10^3/uL (4.0-11.0) Red Blood Count 5.27 x10^6/uL (4.30-5.70) Hemoglobin 16.2 g/dL (13.0-17.5) Hematocrit 47.1 % (39.0-53.0) Mean Corpuscular Volume 89 fL (79-100) Mean Corpuscular Hemoglobin 31 pg (25-35) Mean Corpuscular Hemoglobin Concent 34 g/dL (31-37) Red Cell Distribution Width 13.9 % (11.5-14.5) Platelet Count 205 x10^3/uL (140-400) Neutrophils (%) (Auto) 88 % (31-73) Lymphocytes (%) (Auto) 5 % (24-48) Monocytes (%) (Auto) 7 % (0-9) Eosinophils (%) (Auto) 0 % (0-3) Basophils (%) (Auto) 0 % (0-3) Neutrophils # (Auto) 13.9 x10^3/uL (1.8-7.7) Lymphocytes # (Auto) 0.7 x10^3/uL (1.0-4.8) Monocytes # (Auto) 1.1 x10^3/uL (0.0-1.1) Eosinophils # (Auto) 0.0 x10^3/uL (0.0-0.7) Basophils # (Auto) 0.0 x10^3/uL (0.0-0.2) Micro KUB Abnormal bowel gas pattern suggesting a distal small bowel obstruction versus left-sided colitis. Objective Assessment Gangrenous appendicitis s/p laparoscopic appendectomy, 12/28 Leukocytosis in part reactive steroids and surgery, some better Hypertension Hyperglycemia Abdominal pain ? SBO vs left-sided colitis on KUB Plan Plan of Care Continue Zosyn s/p dexamethasone, 12/28 s/p flu vaccine, Monitor drain output Supportive care Await gen surg f/u Attending Co-Sign The patient was seen and interviewed as well as examined at the bedside. The chart was reviewed. The case was discussed. Agree with the plan of care. SADI CARBAJAL APRN Dec 30, 2019 10:38 MASSIEL SAUNDERS MD Dec 30, 2019 13:48
--- NOTE | 2019-12-30 11:23 | PDOC ---
PROGRESS NOTES History of Present Illness History of Present Illness VTE Prophylaxis Ordered VTE Prophylaxis Devices: Yes VTE Pharmacological Prophylaxi: Yes Assessment/Plan Assessment/Plan impression Acute appendicitis./Gangrenous appendicitis. VOMITING, DISTENDED Abnormal bowel gas pattern suggesting a distal small bowel obstruction versus left-sided colitis. admit Laparoscopic appendectomy. IV Zosyn CBC in am RECORD drain output NG PLACED NPO GI CONSULT D/W RN 38 MIN pt exam, chart review, > 50% of time spent with exam, chart review, pt care coordination Vitals Vitals Vital Signs Date Time Temp Pulse Resp B/P (MAP) Pulse Ox O2 Delivery O2 Flow Rate FiO2 12/30/19 08:00 Nasal Cannula 2.0 12/30/19 07:00 97.9 122 18 148/109 (122) 94 97.9 Physical Exam Physical Exam GENERAL: Propped up in bed, alert, + hiccups HEENT: Pupils equally round and reactive. Oropharynx is pink and moist. No thrush. NECK: Supple. LUNGS: Clear to auscultation. HEART: S1, S2. ABDOMEN: Obese, distended, mildly tender, hypoactive bowel sounds. HEMA intact - serous drainage EXTREMITIES: No gross edema or cyanosis. DERMATOLOGIC: Warm to touch without signs of rash. NEUROLOGIC: Alert and answering questions appropriately. PIV General: Alert, Oriented X3, Cooperative, No acute distress Heart: Regular rate Abdomen: No hepatosplenomegaly Extremities: No cyanosis Skin: No breakdown Labs LABS One view abdomen pelvis KUB 9:19 AM HISTORY: Constipation and abdominal distention Upright AP view abdomen pelvis Correlation is made to December 20, 2019 CT There is distended air-filled loops of small bowel with multiple fluid levels. There is some air within the right colon. There is a paucity bowel gas in the left lower quadrant and in the pelvis. IMPRESSION: Abnormal bowel gas pattern suggesting a distal small bowel obstruction versus left-sided colitis. Electronically signed by: Lauro Aviles III, MD (12/30/2019 9:36 AM) [id number] DICTATED and SIGNED BY: LAURO AVILES III, MD Laboratory Tests Test 12/30/19 05:00 White Blood Count 15.8 x10^3/uL (4.0-11.0) Red Blood Count 5.27 x10^6/uL (4.30-5.70) Hemoglobin 16.2 g/dL (13.0-17.5) Hematocrit 47.1 % (39.0-53.0) Mean Corpuscular Volume 89 fL (79-100) Mean Corpuscular Hemoglobin 31 pg (25-35) Mean Corpuscular Hemoglobin Concent 34 g/dL (31-37) Red Cell Distribution Width 13.9 % (11.5-14.5) Platelet Count 205 x10^3/uL (140-400) Neutrophils (%) (Auto) 88 % (31-73) Lymphocytes (%) (Auto) 5 % (24-48) Monocytes (%) (Auto) 7 % (0-9) Eosinophils (%) (Auto) 0 % (0-3) Basophils (%) (Auto) 0 % (0-3) Neutrophils # (Auto) 13.9 x10^3/uL (1.8-7.7) Lymphocytes # (Auto) 0.7 x10^3/uL (1.0-4.8) Monocytes # (Auto) 1.1 x10^3/uL (0.0-1.1) Eosinophils # (Auto) 0.0 x10^3/uL (0.0-0.7) Basophils # (Auto) 0.0 x10^3/uL (0.0-0.2) Comment Review of Relevant I have reviewed the following items eileen (where applicable) has been applied. Labs Laboratory Tests Test 12/29/19 04:40 12/30/19 05:00 White Blood Count 18.0 x10^3/uL (4.0-11.0) 15.8 x10^3/uL (4.0-11.0) Red Blood Count 4.89 x10^6/uL (4.30-5.70) 5.27 x10^6/uL (4.30-5.70) Hemoglobin 14.7 g/dL (13.0-17.5) 16.2 g/dL (13.0-17.5) Hematocrit 43.2 % (39.0-53.0) 47.1 % (39.0-53.0) Mean Corpuscular Volume 88 fL (79-100) 89 fL (79-100) Mean Corpuscular Hemoglobin 30 pg (25-35) 31 pg (25-35) Mean Corpuscular Hemoglobin Concent 34 g/dL (31-37) 34 g/dL (31-37) Red Cell Distribution Width 13.8 % (11.5-14.5) 13.9 % (11.5-14.5) Platelet Count 189 x10^3/uL (140-400) 205 x10^3/uL (140-400) Neutrophils (%) (Auto) 92 % (31-73) 88 % (31-73) Lymphocytes (%) (Auto) 2 % (24-48) 5 % (24-48) Monocytes (%) (Auto) 6 % (0-9) 7 % (0-9) Eosinophils (%) (Auto) 0 % (0-3) 0 % (0-3) Basophils (%) (Auto) 0 % (0-3) 0 % (0-3) Neutrophils # (Auto) 16.6 x10^3/uL (1.8-7.7) 13.9 x10^3/uL (1.8-7.7) Lymphocytes # (Auto) 0.4 x10^3/uL (1.0-4.8) 0.7 x10^3/uL (1.0-4.8) Monocytes # (Auto) 1.0 x10^3/uL (0.0-1.1) 1.1 x10^3/uL (0.0-1.1) Eosinophils # (Auto) 0.0 x10^3/uL (0.0-0.7) 0.0 x10^3/uL (0.0-0.7) Basophils # (Auto) 0.0 x10^3/uL (0.0-0.2) 0.0 x10^3/uL (0.0-0.2) Segmented Neutrophils % 75 % (35-66) Band Neutrophils % 19 % (0-9) Lymphocytes % 2 % (24-48) Monocytes % 4 % (0-10) Platelet Estimate Adequate (ADEQUATE) Ovalocytes Sodium Level 140 mmol/L (136-145) Potassium Level 4.2 mmol/L (3.5-5.1) Chloride Level 105 mmol/L (98-107) Carbon Dioxide Level 24 mmol/L (21-32) Anion Gap 11 (6-14) Blood Urea Nitrogen 16 mg/dL (8-26) Creatinine 1.1 mg/dL (0.7-1.3) Estimated GFR (Cockcroft-Gault) 69.5 Glucose Level 159 mg/dL (70-99) Calcium Level 8.5 mg/dL (8.5-10.1) Laboratory Tests Test 12/30/19 05:00 White Blood Count 15.8 x10^3/uL (4.0-11.0) Red Blood Count 5.27 x10^6/uL (4.30-5.70) Hemoglobin 16.2 g/dL (13.0-17.5) Hematocrit 47.1 % (39.0-53.0) Mean Corpuscular Volume 89 fL (79-100) Mean Corpuscular Hemoglobin 31 pg (25-35) Mean Corpuscular Hemoglobin Concent 34 g/dL (31-37) Red Cell Distribution Width 13.9 % (11.5-14.5) Platelet Count 205 x10^3/uL (140-400) Neutrophils (%) (Auto) 88 % (31-73) Lymphocytes (%) (Auto) 5 % (24-48) Monocytes (%) (Auto) 7 % (0-9) Eosinophils (%) (Auto) 0 % (0-3) Basophils (%) (Auto) 0 % (0-3) Neutrophils # (Auto) 13.9 x10^3/uL (1.8-7.7) Lymphocytes # (Auto) 0.7 x10^3/uL (1.0-4.8) Monocytes # (Auto) 1.1 x10^3/uL (0.0-1.1) Eosinophils # (Auto) 0.0 x10^3/uL (0.0-0.7) Basophils # (Auto) 0.0 x10^3/uL (0.0-0.2) Medications Current Medications Sevoflurane (Ultane) 60 ml STK-MED ONCE IH ; Start 12/28/19 at 17:29; Stop 12/28/19 at 17:30; Status DC Midazolam HCl (Versed) 2 mg STK-MED ONCE .ROUTE ; Start 12/28/19 at 17:30; Stop 12/28/19 at 17:30; Status DC Fentanyl Citrate (Fentanyl 2ml Vial) 100 mcg STK-MED ONCE .ROUTE ; Start 12/28/19 at 17:30; Stop 12/28/19 at 17:30; Status DC Glycopyrrolate (Robinul) 1 mg STK-MED ONCE .ROUTE ; Start 12/28/19 at 17:30; Stop 12/28/19 at 17:31; Status DC Neostigmine [place] (Neostigmine Methylsulfate) 5 mg STK-MED ONCE .ROUTE ; Start 12/28/19 at 17:30; Stop 12/28/19 at 17:31; Status DC Rocuronium [place] (Zemuron) 50 mg STK-MED ONCE .ROUTE ; Start 12/28/19 at 17:30; Stop 12/28/19 at 17:31; Status DC Succinylcholine Chloride (Anectine) 200 mg STK-MED ONCE .ROUTE ; Start 12/28/19 at 17:30; Stop 12/28/19 at 17:31; Status DC Dexamethasone Sodium Phosphate (Decadron) 4 mg STK-MED ONCE .ROUTE ; Start 12/28/19 at 17:31; Stop 12/28/19 at 17:31; Status DC Ondansetron HCl (Zofran) 4 mg STK-MED ONCE .ROUTE ; Start 12/28/19 at 17:31; Stop 12/28/19 at 17:31; Status DC Ketorolac Tromethamine (Toradol 30mg Vial) 30 mg STK-MED ONCE .ROUTE ; Start 12/28/19 at 17:31; Stop 12/28/19 at 17:31; Status DC Lidocaine HCl (Lidocaine Pf 2% Vial) 5 ml STK-MED ONCE .ROUTE ; Start 12/28/19 at 17:31; Stop 12/28/19 at 17:31; Status DC Propofol 20 ml @ As Directed STK-MED ONCE IV ; Start 12/28/19 at 17:31; Stop 12/28/19 at 17:31; Status DC Metronidazole 100 ml @ 100 mls/hr 1X PREOP PRN IV PER PROTOCOL Last ad ministered on 12/28/19at 17:37; Start 12/28/19 at 17:45; Stop 12/29/19 at 18:45; Status DC Bupivacaine HCl/ Epinephrine Bitart (Sensorcain-Epi 0.5%-1:513917 Mpf) 30 ml STK-MED ONCE .ROUTE Last administered on 12/28/19at 18:11; Start 12/28/19 at 17:34; Stop 12/28/19 at 17:34; Status DC Metronidazole 100 ml @ As Directed STK-MED ONCE IV ; Start 12/28/19 at 17:36; Stop 12/28/19 at 17:36; Status DC Metronidazole 100 ml @ 100 mls/hr 1X ONCE IV ; Start 12/28/19 at 17:45; Stop 12/28/19 at 18:44; Status DC Ondansetron HCl (Zofran) 4 mg PRN Q6HRS PRN IV NAUSEA/VOMITING; Start 12/28/19 at 18:00; Stop 12/29/19 at 17:59; Status DC Fentanyl Citrate (Fentanyl 2ml Vial) 25 mcg PRN Q5MIN PRN IV MILD PAIN 1-3; Start 12/28/19 at 18:00; Stop 12/29/19 at 17:59; Status DC Fentanyl Citrate (Fentanyl 2ml Vial) 50 mcg PRN Q5MIN PRN IV MODERATE TO SEVERE PAIN; Start 12/28/19 at 18:00; Stop 12/29/19 at 17:59; Status DC Morphine Sulfate (Morphine Sulfate) 1 mg PRN Q10MIN PRN IV SEVERE PAIN 7-10; Start 12/28/19 at 18:00; Stop 12/29/19 at 17:59; Status DC Ringer's Solution 1,000 ml @ 30 mls/hr Q24H IV Last administered on 12/28/19at 19:43; Start 12/28/19 at 17:50; Stop 12/29/19 at 05:49; Status DC Lidocaine HCl (Xylocaine-Mpf 1% 2ml Vial) 2 ml PRN 1X PRN ID PRIOR TO IV START; Start 12/28/19 at 18:00; Stop 12/29/19 at 17:59; Status DC Hydromorphone HCl (Dilaudid) 0.5 mg PRN Q10MIN PRN IV SEV PAIN, Second choice; Start 12/28/19 at 18:00; Stop 12/29/19 at 17:59; Status DC Prochlorperazine Edisylate (Compazine) 5 mg PACU PRN PRN IV NAUSEA, MRX1; Start 12/28/19 at 18:00; Stop 12/29/19 at 17:59; Status UNV Enoxaparin Sodium (Lovenox 40mg Syringe) 40 mg DAILY SQ Last administered on 12/30/19at 08:29; Start 12/29/19 at 09:00 Sodium Chloride (Normal Saline Flush) 3 ml QSHIFT PRN IV AFTER MEDS AND BLOOD DRAWS; Start 12/28/19 at 19:15 Potassium Chloride/Sodium Chloride 1,000 ml @ 75 mls/hr [id number] IV Last administered on 12/30/19at 05:38; Start 12/28/19 at 20:00 Dextrose (Dextrose 50%-Water Syringe) 12.5 gm PRN Q15MIN PRN IV SEE COMMENTS; Start 12/28/19 at 19:15 Oxycodone/ Acetaminophen (Percocet 5/325) 1 tab PRN Q4HRS PRN PO MILD PAIN, 1ST CHOICE Last administered on 12/29/19at 09:19; Start 12/28/19 at 19:15 Oxycodone/ Acetaminophen (Percocet 5/325) 2 tab PRN Q4HRS PRN PO MODERATE PAIN, SEVERE PAIN Last administered on 12/29/19at 18:14; Start 12/28/19 at 19:15 Naloxone HCl (Narcan) 0.4 mg PRN Q2MIN PRN IV SEE INSTRUCTIONS; Start 12/28/19 at 19:15 Sodium Chloride 1,000 ml @ 25 mls/hr Q24H IV ; Start 12/28/19 at 19:13 Hydromorphone HCl (Dilaudid) 1 mg PRN Q4HRS PRN IV SEVERE PAIN 7-10; Start 12/28/19 at 19:15 Docusate Sodium (Colace) 100 mg BID PO Last administered on 12/30/19at 08:30; Start 12/28/19 at 21:00 Ondansetron HCl (Zofran) 4 mg PRN Q6HRS PRN IVP NAUESA, 1ST CHOICE; Start 12/28/19 at 19:15 Cefazolin Sodium/ Dextrose 50 ml @ 100 mls/hr Q8HRS IV Last administered on 12/29/19at 14:19; Start 12/28/19 at 22:00; Stop 12/29/19 at 14:24; Status DC Metronidazole 100 ml @ 100 mls/hr Q12HR IV Last administered on 12/29/19at 09:18; Start 12/28/19 at 21:00; Stop 12/29/19 at 14:24; Status DC Info (FLU VACCINE SCREEN per RX) 1 each PRN 1X PRN MC SEE COMMENTS; Start 12/29/19 at 04:30; Status UNV Influenza Virus Vaccine Quadrival (Afluria Quad 2019-20 (3yr Up) Syringe) 0.5 ml ONCE ONCE VAX IM Last administered on 12/29/19at 09:21; Start 12/29/19 at 09:00; Stop 12/29/19 at 09:01; Status DC Piperacillin Sod/ Tazobactam Sod 3.375 gm/Sodium Chloride 50 ml @ 100 mls/hr Q6HRS IV Last administered on 12/30/19at 05:37; Start 12/29/19 at 18:00 Bismuth Subsalicylate (Pepto-Bismol) 786 mg PRN Q3HRS PRN PO DIARRHEA Last administered on 12/29/19at 22:33; Start 12/29/19 at 22:30 Lisinopril (Prinivil) 5 mg 1X ONCE PO Last administered on 12/30/19at 01:26; Start 12/30/19 at 01:30; Stop 12/30/19 at 01:31; Status DC Vitals/I & O Vital Sign - Last 24 Hours 12/29/19 12/29/19 12/29/19 12/29/19 14:23 15:00 16:03 18:14 Temp 98.4 98.4 Pulse 96 Resp 16 18 16 16 B/P (MAP) 132/80 (97) Pulse Ox 88 O2 Delivery Room Air Room Air Nasal Cannula Room Air O2 Flow Rate 2.0 12/29/19 12/29/19 12/29/19 12/29/19 19:00 19:30 19:41 23:00 Temp 99.4 98.7 99.4 98.7 Pulse 109 97 Resp 20 18 B/P (MAP) 137/86 (103) 152/103 (119) Pulse Ox 86 94 O2 Delivery Room Air Nasal Cannula Nasal Cannula Room Air O2 Flow Rate 2.0 2.0 12/30/19 12/30/19 12/30/19 12/30/19 01:15 01:26 03:00 07:00 Temp 98.5 97.9 98.5 97.9 Pulse 103 103 105 122 Resp 18 18 B/P (MAP) 151/106 (121) 151/106 157/102 (120) 148/109 (122) Pulse Ox 94 94 O2 Delivery Nasal Cannula Nasal Cannula Room Air O2 Flow Rate 2.0 2.0 12/30/19 08:00 O2 Delivery Nasal Cannula O2 Flow Rate 2.0 Intake and Output 12/29/19 12/29/19 12/30/19 15:00 23:00 07:00 Intake Total 430 ml 150 ml 240 ml Output Total 40 ml 1130 ml Balance 430 ml 110 ml -890 ml AMANDA CAMP MD Dec 30, 2019 11:22
[2019-12-30] MEDS ORDERED: LIDOCAINE 2% JELLY 6ML IN APPLICATOR. MM ONE (12:30)
[2019-12-30] MEDS ORDERED: BENZOCAINE ONE 20% MUCOSAL SPRAY. MM (12:30)
--- NOTE | 2019-12-30 14:56 | PDOC ---
SURGICAL PROGRESS NOTE Subjective feels distended has hiccups Vital Signs Vital Signs Date Time Temp Pulse Resp B/P (MAP) Pulse Ox O2 Delivery O2 Flow Rate FiO2 12/30/19 11:00 98.0 128 18 142/111 (121) 95 Room Air 98.0 12/30/19 08:00 2.0 I&O Intake and Output 12/30/19 07:00 Intake Total 820 ml Output Total 1170 ml Balance -350 ml Intake Oral 670 ml IV Total 150 ml Output Urine Total 650 ml Drainage Total 520 ml # Voids 1 PATIENT HAS A PIZANO: No General: Alert, No acute distress Abdomen: Other (distended, tympanitic) Labs Laboratory Tests Test 12/29/19 04:40 12/30/19 05:00 White Blood Count 18.0 x10^3/uL (4.0-11.0) 15.8 x10^3/uL (4.0-11.0) Red Blood Count 4.89 x10^6/uL (4.30-5.70) 5.27 x10^6/uL (4.30-5.70) Hemoglobin 14.7 g/dL (13.0-17.5) 16.2 g/dL (13.0-17.5) Hematocrit 43.2 % (39.0-53.0) 47.1 % (39.0-53.0) Mean Corpuscular Volume 88 fL (79-100) 89 fL (79-100) Mean Corpuscular Hemoglobin 30 pg (25-35) 31 pg (25-35) Mean Corpuscular Hemoglobin Concent 34 g/dL (31-37) 34 g/dL (31-37) Red Cell Distribution Width 13.8 % (11.5-14.5) 13.9 % (11.5-14.5) Platelet Count 189 x10^3/uL (140-400) 205 x10^3/uL (140-400) Neutrophils (%) (Auto) 92 % (31-73) 88 % (31-73) Lymphocytes (%) (Auto) 2 % (24-48) 5 % (24-48) Monocytes (%) (Auto) 6 % (0-9) 7 % (0-9) Eosinophils (%) (Auto) 0 % (0-3) 0 % (0-3) Basophils (%) (Auto) 0 % (0-3) 0 % (0-3) Neutrophils # (Auto) 16.6 x10^3/uL (1.8-7.7) 13.9 x10^3/uL (1.8-7.7) Lymphocytes # (Auto) 0.4 x10^3/uL (1.0-4.8) 0.7 x10^3/uL (1.0-4.8) Monocytes # (Auto) 1.0 x10^3/uL (0.0-1.1) 1.1 x10^3/uL (0.0-1.1) Eosinophils # (Auto) 0.0 x10^3/uL (0.0-0.7) 0.0 x10^3/uL (0.0-0.7) Basophils # (Auto) 0.0 x10^3/uL (0.0-0.2) 0.0 x10^3/uL (0.0-0.2) Segmented Neutrophils % 75 % (35-66) Band Neutrophils % 19 % (0-9) Lymphocytes % 2 % (24-48) Monocytes % 4 % (0-10) Platelet Estimate Adequate (ADEQUATE) Ovalocytes Sodium Level 140 mmol/L (136-145) Potassium Level 4.2 mmol/L (3.5-5.1) Chloride Level 105 mmol/L (98-107) Carbon Dioxide Level 24 mmol/L (21-32) Anion Gap 11 (6-14) Blood Urea Nitrogen 16 mg/dL (8-26) Creatinine 1.1 mg/dL (0.7-1.3) Estimated GFR (Cockcroft-Gault) 69.5 Glucose Level 159 mg/dL (70-99) Calcium Level 8.5 mg/dL (8.5-10.1) Laboratory Tests Test 12/30/19 05:00 White Blood Count 15.8 x10^3/uL (4.0-11.0) Red Blood Count 5.27 x10^6/uL (4.30-5.70) Hemoglobin 16.2 g/dL (13.0-17.5) Hematocrit 47.1 % (39.0-53.0) Mean Corpuscular Volume 89 fL (79-100) Mean Corpuscular Hemoglobin 31 pg (25-35) Mean Corpuscular Hemoglobin Concent 34 g/dL (31-37) Red Cell Distribution Width 13.9 % (11.5-14.5) Platelet Count 205 x10^3/uL (140-400) Neutrophils (%) (Auto) 88 % (31-73) Lymphocytes (%) (Auto) 5 % (24-48) Monocytes (%) (Auto) 7 % (0-9) Eosinophils (%) (Auto) 0 % (0-3) Basophils (%) (Auto) 0 % (0-3) Neutrophils # (Auto) 13.9 x10^3/uL (1.8-7.7) Lymphocytes # (Auto) 0.7 x10^3/uL (1.0-4.8) Monocytes # (Auto) 1.1 x10^3/uL (0.0-1.1) Eosinophils # (Auto) 0.0 x10^3/uL (0.0-0.7) Basophils # (Auto) 0.0 x10^3/uL (0.0-0.2) WBC down I have reviewed the following KUB done earlier Assessment/Plan POD 2 l/s appendectomy for gangrenous appendicitis after large volume of projectile vomiting a 16 Fr NG was placed and immediately returned another 300+ old heme output will add PPI ALICE BARRERA MD Dec 30, 2019 14:56
[2019-12-30] MEDS ORDERED: PHENOL ORAL SPRAY 177ML BOTTLE. PO PRN (15:00)
[2019-12-30] MEDS ORDERED: HYDROmorphone 2 MG/ML VIAL IV PRN (15:00)
[2019-12-30] MEDS ORDERED: BENZOCAINE/MENTHOL LOZENGE. PO PRN (15:00)
[2019-12-30] MEDS: IV NORMAL SALINE 1000ML BAG 1,000 ML IV SCH (19:13)
[2019-12-30] MEDS ORDERED: ENALAPRILAT 1.25 MG/ML VIAL. IVP SCH (21:00)
[2019-12-30] MEDS: chlorproMAZINE 12.5 MG in IV DEXTROSE 5% 50 ML IV PRN (21:47)
[2019-12-30] MEDS: PANTOPRAZOLE IV PUSH 40 MG VIAL. IVP SCH (22:58)
[2019-12-30] MEDS ORDERED: VANCOMYCIN PER PHARMACY MC PRN (23:15)
[2019-12-30] MEDS ORDERED: ENALAPRILAT 1.25 MG/ML VIAL. IVP PRN (23:15)
[2019-12-30] MEDS ORDERED: VANCOMYCIN 1 GM in IV NORMAL SALINE 250ML 250 ML IV SCH (23:15)
[2019-12-30] MEDS ORDERED: VANCOMYCIN 2 GM in IV NORMAL SALINE 500ML BAG 500 ML IV ONE (23:30)
[2019-12-30] MEDS ORDERED: IV NORMAL SALINE 500ML BAG 500 ML IV ONE (23:30)
[2019-12-31] VITALS (7 sets, daily range): BP systolic 112–146; BP diastolic 81–93
--- NOTE | 2019-12-31 02:17 | NUR ---
Pharmacy Vancomycin Dosing Note S:Consulted to monitor and dose vancomycin started 12/31/19. O:JACKLYN BRIZUELA is a 54 year old M with POST APPENDECTOMY . Height: 5 feet, 9.5 inches Weight: 90.7 kg [place] Body Weight: 71.85 Adjusted Body Weight: 79.39 Dosing Weight: Actual Other Antibiotics: ZOSYN 3.375 GM Q6H LABS: Last BUN: 16 Last Creatinine: 1.1 Creatinine Clearance: 85 mL/min Last WBC: 15.8 Last Procalcitonin: Tmax (past 24 hours): Microbiology: I/O: Drug Levels: Last level: on at Last dose given 12/31/19 at 0000 Vancomycin Dosing: Loading Dose: 2000 mg x1 Dosing Weight: Actual Target Trough: 10-20 A: Based on: WT AND CRCL P: 1. Begin Vancomycin 1250 mg IV q12h 2. Follow up Trough level on 01/01/20 at 1130 3. Pharmacy will continue to monitor, follow and adjust therapy as needed. ELVIN BOWMAN RPH, 12/31/19216 Signed: 12/31/19 at 216 by ELVIN BOWMAN RPH PHA
[2019-12-31 05:28] LABS: ALBUMIN 2.6 g/dL (3.4-5.0); ALBUMIN/GLOBULIN RATIO 0.8 (1.0-1.7); CALCIUM 7.9 mg/dL (8.5-10.1); GFR 77.6; TOTAL BILIRUBIN 0.7 mg/dL (0.2-1.0); TOTAL PROTEIN 5.7 g/dL (6.4-8.2)
[2019-12-31 05:39] LABS: BASO % 0 % (0-3); EOS % 0 % (0-3); HEMATOCRIT 43.9 % (39.0-53.0); HEMOGLOBIN 15.2 g/dL (13.0-17.5); LYMPH # 1.1 x10^3/uL (1.0-4.8); LYMPH % 9 % (24-48); MEAN CORPUSCULAR HEMOGLOBIN 31 pg (25-35); MEAN CORPUSCULAR HGB CONC 35 g/dL (31-37); MEAN CORPUSCULAR VOLUME 88 fL (79-100); MONO # 1.3 x10^3/uL (0.0-1.1); MONO % 10 % (0-9); NEUT # 10.2 x10^3/uL (1.8-7.7); NEUT % 81 % (31-73); PLATELET COUNT 218 x10^3/uL (140-400); RED BLOOD COUNT 5.01 x10^6/uL (4.30-5.70); RED CELL DISTRIBUTION WIDTH 13.7 % (11.5-14.5); WHITE BLOOD COUNT 12.6 x10^3/uL (4.0-11.0)
[2019-12-31] MEDS: PIPERACILLIN/TAZOBACTAM 3.375 GM in IV NORMAL SALINE 50ML 50 ML IV SCH ×4 (05:39→19:39)
[2019-12-31] MEDS: PANTOPRAZOLE IV PUSH 40 MG VIAL. IVP SCH (06:37)
--- NOTE | 2019-12-31 08:57 | PDOC ---
ELEANOR LEARY LOCOMOTIVE FIRER 12/31/19 0857: SURGICAL PROGRESS NOTE Subjective overall improved small amount of flatus Vital Signs Vital Signs Date Time Temp Pulse Resp B/P (MAP) Pulse Ox O2 Delivery O2 Flow Rate FiO2 12/31/19 07:00 97.4 118 18 127/93 (104) 93 Room Air 97.4 12/30/19 08:00 2.0 I&O Intake and Output 12/31/19 07:00 Intake Total 500 ml Output Total 1750 ml Balance -1250 ml Intake Oral 0 ml IV Total 500 ml Output Urine Total 750 ml Gastric Drainage Total 350 ml Drainage Total 650 ml General: Alert, Oriented X3, Cooperative HEENT: Other (NG bilious ) Abdomen: Soft, Other (distended, drain serous) Labs Laboratory Tests Test 12/30/19 05:00 12/30/19 22:28 12/31/19 03:50 White Blood Count 15.8 x10^3/uL (4.0-11.0) 12.6 x10^3/uL (4.0-11.0) Red Blood Count 5.27 x10^6/uL (4.30-5.70) 5.01 x10^6/uL (4.30-5.70) Hemoglobin 16.2 g/dL (13.0-17.5) 15.2 g/dL (13.0-17.5) Hematocrit 47.1 % (39.0-53.0) 43.9 % (39.0-53.0) Mean Corpuscular Volume 89 fL (79-100) 88 fL (79-100) Mean Corpuscular Hemoglobin 31 pg (25-35) 31 pg (25-35) Mean Corpuscular Hemoglobin Concent 34 g/dL (31-37) 35 g/dL (31-37) Red Cell Distribution Width 13.9 % (11.5-14.5) 13.7 % (11.5-14.5) Platelet Count 205 x10^3/uL (140-400) 218 x10^3/uL (140-400) Neutrophils (%) (Auto) 88 % (31-73) 81 % (31-73) Lymphocytes (%) (Auto) 5 % (24-48) 9 % (24-48) Monocytes (%) (Auto) 7 % (0-9) 10 % (0-9) Eosinophils (%) (Auto) 0 % (0-3) 0 % (0-3) Basophils (%) (Auto) 0 % (0-3) 0 % (0-3) Neutrophils # (Auto) 13.9 x10^3/uL (1.8-7.7) 10.2 x10^3/uL (1.8-7.7) Lymphocytes # (Auto) 0.7 x10^3/uL (1.0-4.8) 1.1 x10^3/uL (1.0-4.8) Monocytes # (Auto) 1.1 x10^3/uL (0.0-1.1) 1.3 x10^3/uL (0.0-1.1) Eosinophils # (Auto) 0.0 x10^3/uL (0.0-0.7) 0.0 x10^3/uL (0.0-0.7) Basophils # (Auto) 0.0 x10^3/uL (0.0-0.2) 0.0 x10^3/uL (0.0-0.2) Lactic Acid Level 1.8 mmol/L (0.4-2.0) Sodium Level 136 mmol/L (136-145) Potassium Level 4.0 mmol/L (3.5-5.1) Chloride Level 101 mmol/L (98-107) Carbon Dioxide Level 24 mmol/L (21-32) Anion Gap 11 (6-14) Blood Urea Nitrogen 27 mg/dL (8-26) Creatinine 1.0 mg/dL (0.7-1.3) Estimated GFR (Cockcroft-Gault) 77.6 BUN/Creatinine Ratio 27 (6-20) Glucose Level 139 mg/dL (70-99) Calcium Level 7.9 mg/dL (8.5-10.1) Total Bilirubin 0.7 mg/dL (0.2-1.0) Aspartate Amino Transf (AST/SGOT) 12 U/L (15-37) Alanine Aminotransferase (ALT/SGPT) 18 U/L (16-63) Alkaline Phosphatase 58 U/L (46-116) Total Protein 5.7 g/dL (6.4-8.2) Albumin 2.6 g/dL (3.4-5.0) Albumin/Globulin Ratio 0.8 (1.0-1.7) Laboratory Tests Test 12/30/19 22:28 12/31/19 03:50 Lactic Acid Level 1.8 mmol/L (0.4-2.0) White Blood Count 12.6 x10^3/uL (4.0-11.0) Red Blood Count 5.01 x10^6/uL (4.30-5.70) Hemoglobin 15.2 g/dL (13.0-17.5) Hematocrit 43.9 % (39.0-53.0) Mean Corpuscular Volume 88 fL (79-100) Mean Corpuscular Hemoglobin 31 pg (25-35) Mean Corpuscular Hemoglobin Concent 35 g/dL (31-37) Red Cell Distribution Width 13.7 % (11.5-14.5) Platelet Count 218 x10^3/uL (140-400) Neutrophils (%) (Auto) 81 % (31-73) Lymphocytes (%) (Auto) 9 % (24-48) Monocytes (%) (Auto) 10 % (0-9) Eosinophils (%) (Auto) 0 % (0-3) Basophils (%) (Auto) 0 % (0-3) Neutrophils # (Auto) 10.2 x10^3/uL (1.8-7.7) Lymphocytes # (Auto) 1.1 x10^3/uL (1.0-4.8) Monocytes # (Auto) 1.3 x10^3/uL (0.0-1.1) Eosinophils # (Auto) 0.0 x10^3/uL (0.0-0.7) Basophils # (Auto) 0.0 x10^3/uL (0.0-0.2) Sodium Level 136 mmol/L (136-145) Potassium Level 4.0 mmol/L (3.5-5.1) Chloride Level 101 mmol/L (98-107) Carbon Dioxide Level 24 mmol/L (21-32) Anion Gap 11 (6-14) Blood Urea Nitrogen 27 mg/dL (8-26) Creatinine 1.0 mg/dL (0.7-1.3) Estimated GFR (Cockcroft-Gault) 77.6 BUN/Creatinine Ratio 27 (6-20) Glucose Level 139 mg/dL (70-99) Calcium Level 7.9 mg/dL (8.5-10.1) Total Bilirubin 0.7 mg/dL (0.2-1.0) Aspartate Amino Transf (AST/SGOT) 12 U/L (15-37) Alanine Aminotransferase (ALT/SGPT) 18 U/L (16-63) Alkaline Phosphatase 58 U/L (46-116) Total Protein 5.7 g/dL (6.4-8.2) Albumin 2.6 g/dL (3.4-5.0) Albumin/Globulin Ratio 0.8 (1.0-1.7) Assessment/Plan s/p appy, gangrenous ileus continue NG, await better bowel function continue abx, drain ALICE BARRERA MD 12/31/19 1157: SURGICAL PROGRESS NOTE Assessment/Plan pt seen as above will ask cardiology to see re: tachycardia, HPT NICKEL,ELEANOR L LOCOMOTIVE FIRER Dec 31, 2019 08:57 ALICE BARRERA MD Dec 31, 2019 11:57
[2019-12-31] MEDS: ENOXAPARIN 40 MG/0.4 ML SYRINGE. SQ SCH (09:07)
[2019-12-31] MEDS: DOCUSATE SODIUM 100 MG CAPSULE. PO SCH ×2 (09:15→21:00)
--- NOTE | 2019-12-31 09:26 | PDOC2 ---
GI CONSULT Reason For Consult: vomiting post-op, ?colitis HPI: HPI: 54 y/o male s/p appendectomy by Dr. Garcia on 12/28/19. Then developed abdominal distention and vomiting. Now has NG (~800cc dark bilious material in canister this morning) and abnormal KUB suggesting SBO. Reports flatus, abdomen feels a little better but still painful to right and uncomfortable w/ distention. H/o heartburn - takes Tums PRN. No dysphagia, chronic n/v, hematemesis, diarrhea, constipation, hematochezia, melena, or weight loss. No previous EGD or colonoscopy. No GB, liver, pancreas, or PUD history. No NSAIDs. Looks like received Pepto x 1 on . PMH: PMH: HTN, HLD, hernia repair w/ mesh, appendectomy, right pinky injury/surgery FH: Family History: Other (grandmother - "ulcer," grandfather - heartburn) Social History: Smoke: Quit ALCOHOL: other (quit alcohol when quit smoking) Drugs: None ROS: GEN: Denies fevers, chills, sweats HEENT: Denies blurred vision, sore throat CV: Denies chest pain RESP: Denies shortness of air, cough GI: Per HPI : Denies hematuria, dysuria ENDO: Denies weight changes NEURO: Denies confusion, dizziness MSK: Denies weakness, joint pain/swelling SKIN: Denies jaundice, pruritus Vitals: Vitals: Vital Signs Date Time Temp Pulse Resp B/P (MAP) Pulse Ox O2 Delivery O2 Flow Rate FiO2 12/31/19 07:00 97.4 118 18 127/93 (104) 93 Room Air 97.4 12/30/19 08:00 2.0 Labs: Labs: Laboratory Tests Test 12/30/19 22:28 12/31/19 03:50 Lactic Acid Level 1.8 mmol/L (0.4-2.0) White Blood Count 12.6 x10^3/uL (4.0-11.0) Red Blood Count 5.01 x10^6/uL (4.30-5.70) Hemoglobin 15.2 g/dL (13.0-17.5) Hematocrit 43.9 % (39.0-53.0) Mean Corpuscular Volume 88 fL (79-100) Mean Corpuscular Hemoglobin 31 pg (25-35) Mean Corpuscular Hemoglobin Concent 35 g/dL (31-37) Red Cell Distribution Width 13.7 % (11.5-14.5) Platelet Count 218 x10^3/uL (140-400) Neutrophils (%) (Auto) 81 % (31-73) Lymphocytes (%) (Auto) 9 % (24-48) Monocytes (%) (Auto) 10 % (0-9) Eosinophils (%) (Auto) 0 % (0-3) Basophils (%) (Auto) 0 % (0-3) Neutrophils # (Auto) 10.2 x10^3/uL (1.8-7.7) Lymphocytes # (Auto) 1.1 x10^3/uL (1.0-4.8) Monocytes # (Auto) 1.3 x10^3/uL (0.0-1.1) Eosinophils # (Auto) 0.0 x10^3/uL (0.0-0.7) Basophils # (Auto) 0.0 x10^3/uL (0.0-0.2) Sodium Level 136 mmol/L (136-145) Potassium Level 4.0 mmol/L (3.5-5.1) Chloride Level 101 mmol/L (98-107) Carbon Dioxide Level 24 mmol/L (21-32) Anion Gap 11 (6-14) Blood Urea Nitrogen 27 mg/dL (8-26) Creatinine 1.0 mg/dL (0.7-1.3) Estimated GFR (Cockcroft-Gault) 77.6 BUN/Creatinine Ratio 27 (6-20) Glucose Level 139 mg/dL (70-99) Calcium Level 7.9 mg/dL (8.5-10.1) Total Bilirubin 0.7 mg/dL (0.2-1.0) Aspartate Amino Transf (AST/SGOT) 12 U/L (15-37) Alanine Aminotransferase (ALT/SGPT) 18 U/L (16-63) Alkaline Phosphatase 58 U/L (46-116) Total Protein 5.7 g/dL (6.4-8.2) Albumin 2.6 g/dL (3.4-5.0) Albumin/Globulin Ratio 0.8 (1.0-1.7) Allergies: Coded Allergies: prochlorperazine (Verified Allergy, Intermediate, 12/30/19) Medications: Current Medications Medications (Trade) Dose Ordered Sig/Anastacia Route PRN Reason Start Time Stop Time Status Last Admin Dose Admin Benzocaine (Hurricaine One) 1 spray 1X ONCE MM 12/30/19 12:30 12/30/19 12:31 DC 12/30/19 12:30 Lidocaine HCl (Glydo (Lidocaine) Jelly) 2 kenny 1X ONCE MM 12/30/19 12:30 12/30/19 12:31 DC 12/30/19 12:30 Pantoprazole Sodium (PROTONIX VIAL for IV PUSH) 40 mg DAILYAC IVP 12/30/19 23:00 12/31/19 06:37 Enalaprilat (Vasotec Inj) 1.25 mg Q6HRS IVP 12/30/19 21:00 12/30/19 23:15 DC 12/30/19 20:45 Chlorpromazine HCl 12.5 mg/ Dextrose 50.5 ml @ 100 mls/hr PRN Q8HRS PRN IV HICCUPS 12/30/19 20:30 12/30/19 21:47 Sodium Chloride 500 ml @ 500 mls/hr 1X ONCE IV 12/30/19 23:30 12/31/19 00:29 DC 12/30/19 23:47 Vancomycin HCl 2 gm/Sodium Chloride 500 ml @ 250 mls/hr 1X ONCE IV 12/30/19 23:30 12/31/19 01:29 DC 12/30/19 23:47 Vancomycin HCl (Vanco Per Pharmacy) 1 each PRN DAILY PRN MC SEE COMMENTS 12/30/19 23:15 12/31/19 02:17 Imaging: Imaging: KUB 12/30/19 IMPRESSION: Abnormal bowel gas pattern suggesting a distal small bowel obstruction versus left-sided colitis. PE: GEN: NAD HEENT: NGT w/ dark output LUNGS: CTAB anteriorly HEART: tachycardic ABD: distended, tender right mid-abdomen/RLQ, quiet EXTREMITY: No edema SKIN: No rashes, no jaundice NEURO/PSYCH: A & O 3 A/P: A/P: S/p appendectomy SBO Leukocytosis, tachycardia Heartburn CRC screen - none -- Agree w/ PPI and NGT. Check CT. JERAMIE MUNOZ Dec 31, 2019 09:26
--- NOTE | 2019-12-31 09:33 | PDOC ---
PROGRESS NOTES Chief Complaint Chief Complaint A/P: Acute appendicitis./Gangrenous appendicitis. VOMITING, DISTENDED Abnormal bowel gas pattern suggesting a distal small bowel obstruction versus left-sided colitis. 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 Pain shifted to the right lower quadrant area associated with nausea, vomiting and chills. A CT abdomen/pelvis showed a showed a distended appendix with moderate periappendiceal inflammatory change. Dr. Garcia performed a laparoscopic appendectomy and placement of a 19-Uzbek Javy drain on . The appendix was gangrenous and friable without obvious periappendiceal abscess. Developed SBO, NGT placed. To CT this morning. Vitals Vitals Vital Signs Date Time Temp Pulse Resp B/P (MAP) Pulse Ox O2 Delivery O2 Flow Rate FiO2 12/31/19 07:00 97.4 118 18 127/93 (104) 93 Room Air 97.4 12/30/19 08:00 2.0 Physical Exam Physical Exam GENERAL: Propped up in bed, alert, + hiccups HEENT: Pupils equally round and reactive. Oropharynx is pink and moist. No thrush. NECK: Supple. LUNGS: Clear to auscultation. HEART: S1, S2. ABDOMEN: Obese, distended, mildly tender, hypoactive bowel sounds. HEMA intact - serous drainage EXTREMITIES: No gross edema or cyanosis. DERMATOLOGIC: Warm to touch without signs of rash. NEUROLOGIC: Alert and answering questions appropriately. PIV General: Alert, Oriented X3, Cooperative Heart: Regular rate Abdomen: Soft, Other (distended, drain serous) Extremities: No cyanosis Skin: No breakdown Labs LABS Laboratory Tests Test 12/30/19 22:28 12/31/19 03:50 Lactic Acid Level 1.8 mmol/L (0.4-2.0) White Blood Count 12.6 x10^3/uL (4.0-11.0) Red Blood Count 5.01 x10^6/uL (4.30-5.70) Hemoglobin 15.2 g/dL (13.0-17.5) Hematocrit 43.9 % (39.0-53.0) Mean Corpuscular Volume 88 fL (79-100) Mean Corpuscular Hemoglobin 31 pg (25-35) Mean Corpuscular Hemoglobin Concent 35 g/dL (31-37) Red Cell Distribution Width 13.7 % (11.5-14.5) Platelet Count 218 x10^3/uL (140-400) Neutrophils (%) (Auto) 81 % (31-73) Lymphocytes (%) (Auto) 9 % (24-48) Monocytes (%) (Auto) 10 % (0-9) Eosinophils (%) (Auto) 0 % (0-3) Basophils (%) (Auto) 0 % (0-3) Neutrophils # (Auto) 10.2 x10^3/uL (1.8-7.7) Lymphocytes # (Auto) 1.1 x10^3/uL (1.0-4.8) Monocytes # (Auto) 1.3 x10^3/uL (0.0-1.1) Eosinophils # (Auto) 0.0 x10^3/uL (0.0-0.7) Basophils # (Auto) 0.0 x10^3/uL (0.0-0.2) Sodium Level 136 mmol/L (136-145) Potassium Level 4.0 mmol/L (3.5-5.1) Chloride Level 101 mmol/L (98-107) Carbon Dioxide Level 24 mmol/L (21-32) Anion Gap 11 (6-14) Blood Urea Nitrogen 27 mg/dL (8-26) Creatinine 1.0 mg/dL (0.7-1.3) Estimated GFR (Cockcroft-Gault) 77.6 BUN/Creatinine Ratio 27 (6-20) Glucose Level 139 mg/dL (70-99) Calcium Level 7.9 mg/dL (8.5-10.1) Total Bilirubin 0.7 mg/dL (0.2-1.0) Aspartate Amino Transf (AST/SGOT) 12 U/L (15-37) Alanine Aminotransferase (ALT/SGPT) 18 U/L (16-63) Alkaline Phosphatase 58 U/L (46-116) Total Protein 5.7 g/dL (6.4-8.2) Albumin 2.6 g/dL (3.4-5.0) Albumin/Globulin Ratio 0.8 (1.0-1.7) Comment Review of Relevant I have reviewed the following items eileen (where applicable) has been applied. Labs Laboratory Tests Test 12/30/19 05:00 12/30/19 22:28 12/31/19 03:50 White Blood Count 15.8 x10^3/uL (4.0-11.0) 12.6 x10^3/uL (4.0-11.0) Red Blood Count 5.27 x10^6/uL (4.30-5.70) 5.01 x10^6/uL (4.30-5.70) Hemoglobin 16.2 g/dL (13.0-17.5) 15.2 g/dL (13.0-17.5) Hematocrit 47.1 % (39.0-53.0) 43.9 % (39.0-53.0) Mean Corpuscular Volume 89 fL (79-100) 88 fL (79-100) Mean Corpuscular Hemoglobin 31 pg (25-35) 31 pg (25-35) Mean Corpuscular Hemoglobin Concent 34 g/dL (31-37) 35 g/dL (31-37) Red Cell Distribution Width 13.9 % (11.5-14.5) 13.7 % (11.5-14.5) Platelet Count 205 x10^3/uL (140-400) 218 x10^3/uL (140-400) Neutrophils (%) (Auto) 88 % (31-73) 81 % (31-73) Lymphocytes (%) (Auto) 5 % (24-48) 9 % (24-48) Monocytes (%) (Auto) 7 % (0-9) 10 % (0-9) Eosinophils (%) (Auto) 0 % (0-3) 0 % (0-3) Basophils (%) (Auto) 0 % (0-3) 0 % (0-3) Neutrophils # (Auto) 13.9 x10^3/uL (1.8-7.7) 10.2 x10^3/uL (1.8-7.7) Lymphocytes # (Auto) 0.7 x10^3/uL (1.0-4.8) 1.1 x10^3/uL (1.0-4.8) Monocytes # (Auto) 1.1 x10^3/uL (0.0-1.1) 1.3 x10^3/uL (0.0-1.1) Eosinophils # (Auto) 0.0 x10^3/uL (0.0-0.7) 0.0 x10^3/uL (0.0-0.7) Basophils # (Auto) 0.0 x10^3/uL (0.0-0.2) 0.0 x10^3/uL (0.0-0.2) Lactic Acid Level 1.8 mmol/L (0.4-2.0) Sodium Level 136 mmol/L (136-145) Potassium Level 4.0 mmol/L (3.5-5.1) Chloride Level 101 mmol/L (98-107) Carbon Dioxide Level 24 mmol/L (21-32) Anion Gap 11 (6-14) Blood Urea Nitrogen 27 mg/dL (8-26) Creatinine 1.0 mg/dL (0.7-1.3) Estimated GFR (Cockcroft-Gault) 77.6 BUN/Creatinine Ratio 27 (6-20) Glucose Level 139 mg/dL (70-99) Calcium Level 7.9 mg/dL (8.5-10.1) Total Bilirubin 0.7 mg/dL (0.2-1.0) Aspartate Amino Transf (AST/SGOT) 12 U/L (15-37) Alanine Aminotransferase (ALT/SGPT) 18 U/L (16-63) Alkaline Phosphatase 58 U/L (46-116) Total Protein 5.7 g/dL (6.4-8.2) Albumin 2.6 g/dL (3.4-5.0) Albumin/Globulin Ratio 0.8 (1.0-1.7) Laboratory Tests Test 12/30/19 22:28 12/31/19 03:50 Lactic Acid Level 1.8 mmol/L (0.4-2.0) White Blood Count 12.6 x10^3/uL (4.0-11.0) Red Blood Count 5.01 x10^6/uL (4.30-5.70) Hemoglobin 15.2 g/dL (13.0-17.5) Hematocrit 43.9 % (39.0-53.0) Mean Corpuscular Volume 88 fL (79-100) Mean Corpuscular Hemoglobin 31 pg (25-35) Mean Corpuscular Hemoglobin Concent 35 g/dL (31-37) Red Cell Distribution Width 13.7 % (11.5-14.5) Platelet Count 218 x10^3/uL (140-400) Neutrophils (%) (Auto) 81 % (31-73) Lymphocytes (%) (Auto) 9 % (24-48) Monocytes (%) (Auto) 10 % (0-9) Eosinophils (%) (Auto) 0 % (0-3) Basophils (%) (Auto) 0 % (0-3) Neutrophils # (Auto) 10.2 x10^3/uL (1.8-7.7) Lymphocytes # (Auto) 1.1 x10^3/uL (1.0-4.8) Monocytes # (Auto) 1.3 x10^3/uL (0.0-1.1) Eosinophils # (Auto) 0.0 x10^3/uL (0.0-0.7) Basophils # (Auto) 0.0 x10^3/uL (0.0-0.2) Sodium Level 136 mmol/L (136-145) Potassium Level 4.0 mmol/L (3.5-5.1) Chloride Level 101 mmol/L (98-107) Carbon Dioxide Level 24 mmol/L (21-32) Anion Gap 11 (6-14) Blood Urea Nitrogen 27 mg/dL (8-26) Creatinine 1.0 mg/dL (0.7-1.3) Estimated GFR (Cockcroft-Gault) 77.6 BUN/Creatinine Ratio 27 (6-20) Glucose Level 139 mg/dL (70-99) Calcium Level 7.9 mg/dL (8.5-10.1) Total Bilirubin 0.7 mg/dL (0.2-1.0) Aspartate Amino Transf (AST/SGOT) 12 U/L (15-37) Alanine Aminotransferase (ALT/SGPT) 18 U/L (16-63) Alkaline Phosphatase 58 U/L (46-116) Total Protein 5.7 g/dL (6.4-8.2) Albumin 2.6 g/dL (3.4-5.0) Albumin/Globulin Ratio 0.8 (1.0-1.7) Medications Current Medications Sevoflurane (Ultane) 60 ml STK-MED ONCE IH ; Start 12/28/19 at 17:29; Stop 12/28/19 at 17:30; Status DC Midazolam HCl (Versed) 2 mg STK-MED ONCE .ROUTE ; Start 12/28/19 at 17:30; Stop 12/28/19 at 17:30; Status DC Fentanyl Citrate (Fentanyl 2ml Vial) 100 mcg STK-MED ONCE .ROUTE ; Start 12/28/19 at 17:30; Stop 12/28/19 at 17:30; Status DC Glycopyrrolate (Robinul) 1 mg STK-MED ONCE .ROUTE ; Start 12/28/19 at 17:30; Stop 12/28/19 at 17:31; Status DC Neostigmine [place] (Neostigmine Methylsulfate) 5 mg STK-MED ONCE .ROUTE ; Start 12/28/19 at 17:30; Stop 12/28/19 at 17:31; Status DC Rocuronium [place] (Zemuron) 50 mg STK-MED ONCE .ROUTE ; Start 12/28/19 at 17:30; Stop 12/28/19 at 17:31; Status DC Succinylcholine Chloride (Anectine) 200 mg STK-MED ONCE .ROUTE ; Start 12/28/19 at 17:30; Stop 12/28/19 at 17:31; Status DC Dexamethasone Sodium Phosphate (Decadron) 4 mg STK-MED ONCE .ROUTE ; Start 12/28/19 at 17:31; Stop 12/28/19 at 17:31; Status DC Ondansetron HCl (Zofran) 4 mg STK-MED ONCE .ROUTE ; Start 12/28/19 at 17:31; Stop 12/28/19 at 17:31; Status DC Ketorolac Tromethamine (Toradol 30mg Vial) 30 mg STK-MED ONCE .ROUTE ; Start 12/28/19 at 17:31; Stop 12/28/19 at 17:31; Status DC Lidocaine HCl (Lidocaine Pf 2% Vial) 5 ml STK-MED ONCE .ROUTE ; Start 12/28/19 at 17:31; Stop 12/28/19 at 17:31; Status DC Propofol 20 ml @ As Directed STK-MED ONCE IV ; Start 12/28/19 at 17:31; Stop 2/28/20 at 17:31; Status DC Metronidazole 100 ml @ 100 mls/hr 1X PREOP PRN IV PER PROTOCOL Last administered on 12/28/19at 17:37; Start 12/28/19 at 17:45; Stop 12/29/19 at 18:45; Status DC Bupivacaine HCl/ Epinephrine Bitart (Sensorcain-Epi 0.5%-[id number] Mpf) 30 ml STK-MED ONCE .ROUTE Last administered on 12/28/19at 18:11; Start 12/28/19 at 17:34; Stop 12/28/19 at 17:34; Status DC Metronidazole 100 ml @ As Directed STK-MED ONCE IV ; Start 12/28/19 at 17:36; Stop 12/28/19 at 17:36; Status DC Metronidazole 100 ml @ 100 mls/hr 1X ONCE IV ; Start 12/28/19 at 17:45; Stop 12/28/19 at 18:44; Status DC Ondansetron HCl (Zofran) 4 mg PRN Q6HRS PRN IV NAUSEA/VOMITING; Start 12/28/19 at 18:00; Stop 12/29/19 at 17:59; Status DC Fentanyl Citrate (Fentanyl 2ml Vial) 25 mcg PRN Q5MIN PRN IV MILD PAIN 1-3; Start 12/28/19 at 18:00; Stop 12/29/19 at 17:59; Status DC Fentanyl Citrate (Fentanyl 2ml Vial) 50 mcg PRN Q5MIN PRN IV MODERATE TO SEVERE PAIN; Start 12/28/19 at 18:00; Stop 12/29/19 at 17:59; Status DC Morphine Sulfate (Morphine Sulfate) 1 mg PRN Q10MIN PRN IV SEVERE PAIN 7-10; Start 12/28/19 at 18:00; Stop 12/29/19 at 17:59; Status DC Ringer's Solution 1,000 ml @ 30 mls/hr Q24H IV Last administered on 12/28/19at 19:43; Start 12/28/19 at 17:50; Stop 12/29/19 at 05:49; Status DC Lidocaine HCl (Xylocaine-Mpf 1% 2ml Vial) 2 ml PRN 1X PRN ID PRIOR TO IV START; Start 12/28/19 at 18:00; Stop 12/29/19 at 17:59; Status DC Hydromorphone HCl (Dilaudid) 0.5 mg PRN Q10MIN PRN IV SEV PAIN, Second choice; Start 12/28/19 at 18:00; Stop 12/29/19 at 17:59; Status DC Prochlorperazine Edisylate (Compazine) 5 mg PACU PRN PRN IV NAUSEA, MRX1; Start 12/28/19 at 18:00; Stop 12/29/19 at 17:59; Status UNV Enoxaparin Sodium (Lovenox 40mg Syringe) 40 mg DAILY SQ Last administered on 12/31/19at 09:07; Start 12/29/19 at 09:00 Sodium Chloride (Normal Saline Flush) 3 ml QSHIFT PRN IV AFTER MEDS AND BLOOD DRAWS; Start 12/28/19 at 19:15 Potassium Chloride/Sodium Chloride 1,000 ml @ 75 mls/hr [id number] IV Last administered on 12/30/19at 23:48; Start 12/28/19 at 20:00 Dextrose (Dextrose 50%-Water Syringe) 12.5 gm PRN Q15MIN PRN IV SEE COMMENTS; Start 12/28/19 at 19:15 Oxycodone/ Acetaminophen (Percocet 5/325) 1 tab PRN Q4HRS PRN PO MILD PAIN, 1ST CHOICE Last administered on 12/29/19at 09:19; Start 12/28/19 at 19:15 Oxycodone/ Acetaminophen (Percocet 5/325) 2 tab PRN Q4HRS PRN PO MODERATE PAIN, SEVERE PAIN Last administered on 12/29/19at 18:14; Start 12/28/19 at 19:15 Naloxone HCl (Narcan) 0.4 mg PRN Q2MIN PRN IV SEE INSTRUCTIONS; Start 12/28/19 at 19:15 Sodium Chloride 1,000 ml @ 25 mls/hr Q24H IV ; Start 12/28/19 at 19:13 Hydromorphone HCl (Dilaudid) 1 mg PRN Q4HRS PRN IV SEVERE PAIN 7-10; Start 12/28/19 at 19:15; Status Cancel Docusate Sodium (Colace) 100 mg BID PO Last administered on 12/30/19at 08:30; Start 12/28/19 at 21:00 Ondansetron HCl (Zofran) 4 mg PRN Q6HRS PRN IVP NAUESA, 1ST CHOICE; Start 12/28/19 at 19:15 Cefazolin Sodium/ Dextrose 50 ml @ 100 mls/hr Q8HRS IV Last administered on 12/29/19at 14:19; Start 12/28/19 at 22:00; Stop 12/29/19 at 14:24; Status DC Metronidazole 100 ml @ 100 mls/hr Q12HR IV Last administered on 12/29/19at 09:18; Start 12/28/19 at 21:00; Stop 12/29/19 at 14:24; Status DC Info (FLU VACCINE SCREEN per RX) 1 each PRN 1X PRN MC SEE COMMENTS; Start 12/29/19 at 04:30; Status UNV Influenza Virus Vaccine Quadrival (Afluria Quad 2019-20 (3yr Up) Syringe) 0.5 ml ONCE ONCE VAX IM Last administered on 12/29/19at 09:21; Start 12/29/19 at 09:00; Stop 12/29/19 at 09:01; Status DC Piperacillin Sod/ Tazobactam Sod 3.375 gm/Sodium Chloride 50 ml @ 100 mls/hr Q6HRS IV Last administered on 12/31/19at 05:39; Start 12/29/19 at 18:00 Bismuth Subsalicylate (Pepto-Bismol) 786 mg PRN Q3HRS PRN PO DIARRHEA Last administered on 12/29/19at 22:33; Start 12/29/19 at 22:30 Lisinopril (Prinivil) 5 mg 1X ONCE PO Last administered on 12/30/19at 01:26; Start 12/30/19 at 01:30; Stop 12/30/19 at 01:31; Status DC Benzocaine (Hurricaine One) 1 spray 1X ONCE MM Last administered on 12/30/19at 12:30; Start 12/30/19 at 12:30; Stop 12/30/19 at 12:31; Status DC Lidocaine HCl (Glydo (Lidocaine) Jelly) 2 kenny 1X ONCE MM Last administered on 12/30/19at 12:30; Start 12/30/19 at 12:30; Stop 12/30/19 at 12:31; Status DC Throat Lozenges (Cepacol Sore Throat Lozenge) 1 maria g PRN Q2HRS PRN PO SORE THROAT; Start 12/30/19 at 15:00 Phenol (Chloraseptic) 1 spray PRN Q2HR PRN PO SORE THROAT- 2ND CHOICE; Start 12/30/19 at 15:00 Hydromorphone HCl (Dilaudid) 1 mg PRN Q4HRS PRN IV pain; Start 12/30/19 at 15:00 Pantoprazole Sodium (PROTONIX VIAL for IV PUSH) 40 mg DAILYAC IVP Last administered on 12/31/19at 06:37; Start 12/30/19 at 23:00 Enalaprilat (Vasotec Inj) 1.25 mg Q6HRS IVP Last administered on 12/30/19at 20:45; Start 12/30/19 at 21:00; Stop 12/30/19 at 23:15; Status DC Chlorpromazine HCl 12.5 mg/ Dextrose 50.5 ml @ 100 mls/hr PRN Q8HRS PRN IV HICCUPS Last administered on 12/30/19at 21:47; Start 12/30/19 at 20:30 Sodium Chloride 500 ml @ 500 mls/hr 1X ONCE IV Last administered on 12/30/19at 23:47; Start 12/30/19 at 23:30; Stop 12/31/19 at 00:29; Status DC Vancomycin HCl 1 gm/Sodium Chloride 250 ml @ 250 mls/hr Q12H IV ; Start 12/30/19 at 23:15; Status UNV Vancomycin HCl 2 gm/Sodium Chloride 500 ml @ 250 mls/hr 1X ONCE IV Last administered on 12/30/19at 23:47; Start 12/30/19 at 23:30; Stop 12/31/19 at 01:29; Status DC Vancomycin HCl 1.25 gm/Sodium Chloride 250 ml @ 167 mls/hr Q12H IV ; Start 12/31/19 at 12:00 Vancomycin HCl (Vancomycin Trough Level) 1 each 1X ONCE MC ; Start 01/01/20 at 11:30; Stop 01/01/20 at 11:31 Vancomycin HCl (Vanco Per Pharmacy) 1 each PRN DAILY PRN MC SEE COMMENTS Last administered on 12/31/19at 02:17; Start 12/30/19 at 23:15 Enalaprilat (Vasotec Inj) 1.25 mg PRN Q6HRS PRN IVP SBP >160; Start 12/30/19 at 23:15 Vitals/I & O Vital Sign - Last 24 Hours 12/30/19 12/30/19 12/30/19 12/30/19 11:00 15:00 19:00 19:30 Temp 98.0 98.4 98.0 98.4 Pulse 128 127 133 Resp 18 18 18 B/P (MAP) 142/111 (121) 139/106 (117) 143/105 (118) Pulse Ox 95 94 96 O2 Delivery Room Air Room Air Room Air Room Air 12/30/19 12/30/19 12/30/19 12/30/19 20:45 21:56 23:00 23:30 Temp 97.5 97.5 Pulse 120 134 130 120 Resp 16 B/P (MAP) 143/105 126/93 (104) 79/50 (60) 106/76 (86) Pulse Ox 89 O2 Delivery Room Air 12/31/19 12/31/19 12/31/19 01:30 03:00 07:00 Temp 97.7 97.4 97.7 97.4 Pulse 126 128 118 Resp 18 18 B/P (MAP) 114/86 (95) 112/81 (91) 127/93 (104) Pulse Ox 94 93 O2 Delivery Room Air Room Air Intake and Output 12/30/19 12/30/19 12/31/19 15:00 23:00 07:00 Intake Total 0 ml 500 ml Output Total 170 ml 875 ml 705 ml Balance -170 ml -875 ml -205 ml ROOSEVELT MONTANO MD Dec 31, 2019 09:33
[2019-12-31] MEDS: chlorproMAZINE 12.5 MG in IV DEXTROSE 5% 50 ML IV PRN ×2 (09:39→19:37)
[2019-12-31] MEDS ORDERED: VANCOMYCIN 1.25 GM in IV NORMAL SALINE 250ML 250 ML IV SCH (12:00)
--- NOTE | 2019-12-31 12:39 | NUR ---
SW following. Discussed with RN. Pt is from [place] with family, [place] RN [place]. NG tube, NPO, IV zosyn. RN advised no SW needs at this time. SW will continue to follow.
--- NOTE | 2019-12-31 14:20 | PDOC ---
Infectious Disease Note Subjective Subjective Feels a little better. Flatus times 5 times. still abdominal distention Diminished appetite, + hiccups Less abdominal pain + drainage from drain No fevers/chills/N/V/BM ROS ROS o/w neg Vital Sign Vital Signs Vital Signs Date Time Temp Pulse Resp B/P (MAP) Pulse Ox O2 Delivery O2 Flow Rate FiO2 12/31/19 11:21 98.6 112 16 145/90 (108) 95 Room Air 98.6 12/30/19 08:00 2.0 Physical Exam PHYSICAL EXAM GENERAL: Propped up in bed, alert, + hiccups HEENT: Pupils equally round and reactive. Oropharynx is pink and moist. No thrush. NECK: Supple. LUNGS: Clear to auscultation. HEART: S1, S2. ABDOMEN: Obese, distended, mildly tender, hypoactive bowel sounds. HEMA intact - serous drainage EXTREMITIES: No gross edema or cyanosis. DERMATOLOGIC: Warm to touch without signs of rash. NEUROLOGIC: Alert and answering questions appropriately. PIV Labs Lab Laboratory Tests Test 12/30/19 22:28 12/31/19 03:50 Lactic Acid Level 1.8 mmol/L (0.4-2.0) White Blood Count 12.6 x10^3/uL (4.0-11.0) Red Blood Count 5.01 x10^6/uL (4.30-5.70) Hemoglobin 15.2 g/dL (13.0-17.5) Hematocrit 43.9 % (39.0-53.0) Mean Corpuscular Volume 88 fL (79-100) Mean Corpuscular Hemoglobin 31 pg (25-35) Mean Corpuscular Hemoglobin Concent 35 g/dL (31-37) Red Cell Distribution Width 13.7 % (11.5-14.5) Platelet Count 218 x10^3/uL (140-400) Neutrophils (%) (Auto) 81 % (31-73) Lymphocytes (%) (Auto) 9 % (24-48) Monocytes (%) (Auto) 10 % (0-9) Eosinophils (%) (Auto) 0 % (0-3) Basophils (%) (Auto) 0 % (0-3) Neutrophils # (Auto) 10.2 x10^3/uL (1.8-7.7) Lymphocytes # (Auto) 1.1 x10^3/uL (1.0-4.8) Monocytes # (Auto) 1.3 x10^3/uL (0.0-1.1) Eosinophils # (Auto) 0.0 x10^3/uL (0.0-0.7) Basophils # (Auto) 0.0 x10^3/uL (0.0-0.2) Sodium Level 136 mmol/L (136-145) Potassium Level 4.0 mmol/L (3.5-5.1) Chloride Level 101 mmol/L (98-107) Carbon Dioxide Level 24 mmol/L (21-32) Anion Gap 11 (6-14) Blood Urea Nitrogen 27 mg/dL (8-26) Creatinine 1.0 mg/dL (0.7-1.3) Estimated GFR (Cockcroft-Gault) 77.6 BUN/Creatinine Ratio 27 (6-20) Glucose Level 139 mg/dL (70-99) Calcium Level 7.9 mg/dL (8.5-10.1) Total Bilirubin 0.7 mg/dL (0.2-1.0) Aspartate Amino Transf (AST/SGOT) 12 U/L (15-37) Alanine Aminotransferase (ALT/SGPT) 18 U/L (16-63) Alkaline Phosphatase 58 U/L (46-116) Total Protein 5.7 g/dL (6.4-8.2) Albumin 2.6 g/dL (3.4-5.0) Albumin/Globulin Ratio 0.8 (1.0-1.7) Objective Assessment Gangrenous appendicitis s/p laparoscopic appendectomy, 12/28 Leukocytosis in part reactive steroids and surgery, some better Hypertension Hyperglycemia Abdominal pain ? SBO vs left-sided colitis on KUB Plan Plan of Care Continue Zosyn s/p dexamethasone, 12/28 s/p flu vaccine, Monitor drain output Supportive care Await gen surg f/u CT pending YAKOV NAIDU MD Dec 31, 2019 14:20
--- NOTE | 2019-12-31 14:27 | PDOC2 ---
[employer] 12/31/19 1426: CARDIAC CONSULT DATE OF CONSULT Date of Consult DATE: 12/31/19 TIME: 14:19 REASON FOR CONSULT Reason for Consult: Tachycardia Hypertension REFERRING PHYSICIAN Referring Physician: Dr. Garcia SOURCE Source: Chart review, Patient HISTORY OF PRESENT ILLNESS HISTORY OF PRESENT ILLNESS This is a 54 yo male who initially presented to [facility] secondary to abdominal pain. CT abdomen/pelvis showed distended appendix with moderate periappendiceal inflammatory change. Patient was transferred to [facility] for surgical evaluation. Underwent laparoscopic appendectomy and placement of a 19-Serbian Javy drain on 12/28. The appendix was gangrenous and friable without obvious periappendiceal abscess. Patient has been tachycardic and hypertensive, which prompted this consult. Is not on tele. Denies any chest pain, palpitations, dizziness, diaphoresis, or nausea/vomiting. Mild abdominal pain. Abdomen is distended. Has not has BM, although is passing flatus. PAST MEDICAL HISTORY Cardiovascular: HTN, Hyperlipidemia PAST SURGICAL HISTORY Past Surgical History: Hernia Repair FAMILY HISTORY Family History: Hypertension SOCIAL HISTORY Smoke: No ALCOHOL: none Drugs: None Lives: Alone CURRENT MEDICATIONS CURRENT MEDICATIONS Current Medications Medications (Trade) Dose Ordered Sig/Anastacia Route PRN Reason Start Time Stop Time Status Last Admin Dose Admin Pantoprazole Sodium (PROTONIX VIAL for IV PUSH) 40 mg DAILYAC IVP 12/30/19 23:00 12/31/19 06:37 Enalaprilat (Vasotec Inj) 1.25 mg Q6HRS IVP 12/30/19 21:00 12/30/19 23:15 DC 12/30/19 20:45 Chlorpromazine HCl 12.5 mg/ Dextrose 50.5 ml @ 100 mls/hr PRN Q8HRS PRN IV HICCUPS 12/30/19 20:30 12/31/19 09:39 Sodium Chloride 500 ml @ 500 mls/hr 1X ONCE IV 12/30/19 23:30 12/31/19 00:29 DC 12/30/19 23:47 Vancomycin HCl 2 gm/Sodium Chloride 500 ml @ 250 mls/hr 1X ONCE IV 12/30/19 23:30 12/31/19 01:29 DC 12/30/19 23:47 Vancomycin HCl 1.25 gm/Sodium Chloride 250 ml @ 167 mls/hr Q12H IV 12/31/19 12:00 12/31/19 13:57 DC 12/31/19 13:17 Vancomycin HCl (Vanco Per Pharmacy) 1 each PRN DAILY PRN MC SEE COMMENTS 12/30/19 23:15 12/31/19 13:57 DC 12/31/19 02:17 ALLERGIES ALLERGIES: Coded Allergies: prochlorperazine (Verified Allergy, Intermediate, 12/30/19) ROS Review of System 14 point ROS conducted with pertinent positives noted above in HPI. PHYSICAL EXAM General: Alert, Oriented X3, Cooperative, No acute distress HEENT: Atraumatic, Mucous membr. moist/pink, Other (left nare NGT) Lungs: Clear to auscultation, Other (diminished ) Heart: Other (heart tones regular, tachycardic. Not on tele) Abdomen: Other (distended ) Extremities: No edema, Normal pulses Skin: No significant lesion Neuro: Normal speech, Sensation intact Psych/Mental Status: Mental status NL, Mood NL MUSCULOSKELETAL: Osteoarthritic changes both hands VITALS/I&O VITALS/I&O: Vital Signs Date Time Temp Pulse Resp B/P (MAP) Pulse Ox O2 Delivery O2 Flow Rate FiO2 12/31/19 11:21 98.6 112 16 145/90 (108) 95 Room Air 98.6 12/30/19 08:00 2.0 I & O 12/30/19 12/30/19 12/31/19 15:00 23:00 07:00 Intake Total 0 ml 500 ml Output Total 170 ml 875 ml 705 ml Balance -170 ml -875 ml -205 ml LABS Lab: Laboratory Tests Test 12/30/19 22:28 12/31/19 03:50 Lactic Acid Level 1.8 mmol/L (0.4-2.0) White Blood Count 12.6 x10^3/uL (4.0-11.0) H Red Blood Count 5.01 x10^6/uL (4.30-5.70) Hemoglobin 15.2 g/dL (13.0-17.5) Hematocrit 43.9 % (39.0-53.0) Mean Corpuscular Volume 88 fL (79-100) Mean Corpuscular Hemoglobin 31 pg (25-35) Mean Corpuscular Hemoglobin Concent 35 g/dL (31-37) Red Cell Distribution Width 13.7 % (11.5-14.5) Platelet Count 218 x10^3/uL (140-400) Neutrophils (%) (Auto) 81 % (31-73) H Lymphocytes (%) (Auto) 9 % (24-48) L Monocytes (%) (Auto) 10 % (0-9) H Eosinophils (%) (Auto) 0 % (0-3) Basophils (%) (Auto) 0 % (0-3) Neutrophils # (Auto) 10.2 x10^3/uL (1.8-7.7) H Lymphocytes # (Auto) 1.1 x10^3/uL (1.0-4.8) Monocytes # (Auto) 1.3 x10^3/uL (0.0-1.1) H Eosinophils # (Auto) 0.0 x10^3/uL (0.0-0.7) Basophils # (Auto) 0.0 x10^3/uL (0.0-0.2) Sodium Level 136 mmol/L (136-145) Potassium Level 4.0 mmol/L (3.5-5.1) Chloride Level 101 mmol/L (98-107) Carbon Dioxide Level 24 mmol/L (21-32) Anion Gap 11 (6-14) Blood Urea Nitrogen 27 mg/dL (8-26) H Creatinine 1.0 mg/dL (0.7-1.3) Estimated GFR (Cockcroft-Gault) 77.6 BUN/Creatinine Ratio 27 (6-20) H Glucose Level 139 mg/dL (70-99) H Calcium Level 7.9 mg/dL (8.5-10.1) L Total Bilirubin 0.7 mg/dL (0.2-1.0) Aspartate Amino Transferase (AST) 12 U/L (15-37) L Alanine Aminotransferase (ALT) 18 U/L (16-63) Alkaline Phosphatase 58 U/L (46-116) Total Protein 5.7 g/dL (6.4-8.2) L Albumin 2.6 g/dL (3.4-5.0) L Albumin/Globulin Ratio 0.8 (1.0-1.7) L Laboratory Tests 12/31/19 03:50 Laboratory Tests 12/31/19 03:50 ASSESSMENT/PLAN ASSESSMENT/PLAN 1. Abdominal pain, acute appendicitis; s/p lap appendectomy 2. Leukocytosis 3. Tachycardia; not on tele. Heart tones regular. Most probably physiologic secondary to above 4. Hypertension; controlled 5. Constipation; KUB with possible SBO 6. Hyperlipidemia Recommendations EKG Telemetry monitoring TSH, lipids Will give IVFs Continue post-op care as per surgical team DAVID VILLA MD 12/31/19 1725: CARDIAC CONSULT ASSESSMENT/PLAN ASSESSMENT/PLAN Patient seen and examined Status post open lap appendectomy as noted above. Followed by the surgical services and ID. Tachycardia. Consistent with a reactive sinus tachycardia. We'll check EKG. We'll place the patient on telemetry. We'll treat with IV fluids and monitor lab. Controlled hypertension. History of hyperlipidemia. We'll check lab. Thank you for allowing us to participate in the care of your patient. VIET FIELD APRN Dec 31, 2019 14:26 DAVID VILLA MD Dec 31, 2019 17:25
--- NOTE | 2019-12-31 15:34 | EKG ---
[facility] [address] [place] [address] Test Date: 2019-12-31 Test Time: 15:31:42 Pat Name: JACKLYN BRIZUELA Department: Room: 418 Gender: M Size Mixer: : 1965 Requested By: VIET FIELD Order Number: [id number] Reading MD: Measurements Intervals [place] Rate: 115 P: 56 AL: 136 QRS: 35 QRSD: 72 T: 29 QT: 304 QTc: 422 Interpretive Statements SINUS TACHYCARDIA OTHERWISE NORMAL ECG RI6.02 No previous ECG available for comparison
--- NOTE | 2019-12-31 16:42 | RAD ---
Abdominal and Pelvis CT, Without Contrast: History: Abnormal calculi KUB suggesting small bowel obstruction Comparison: December 28, 2019. Procedure: Axial images are obtained of the abdomen and pelvis, without IV or oral contrast. Oral Contrast: No Findings: Evaluation of solid organs is limited without contrast. Patchy linear opacities in the lung bases. There is a percutaneous drain on the right. The colon is mostly collapsed. There is multiple dilated air and fluid-filled loops of small bowel. The distal small bowel is collapsed. An addended sac transition zone is not seen. This postoperative changes in the right hemipelvis consistent with recent appendectomy. Liver: Normal. Spleen: Normal. Pancreas: Normal. Adrenal Glands: Normal. Kidneys: Normal. There is no free air or free fluid. There is no lymphadenopathy. The urinary bladder appears normal. There is no pericolonic inflammation identified. Impression: New distal small bowel obstruction. End impression PQRS Compliance Statement: One or more of the following individualized dose reduction techniques were utilized for this examination: 1. Automated exposure control 2. Adjustment of the mA and/or kV according to patient size 3. Use of iterative reconstruction technique Electronically signed by: Kashif Aviles III, MD (12/31/2019 4:40 PM) [id number]
[2019-12-31] MEDS: POTASSIUM CL 20MEQ-0.45% NACL 1,000 ML IV SCH (18:43)
[2019-12-31] MEDS: IV NORMAL SALINE 1000ML BAG 1,000 ML IV SCH ×2 (18:44→19:13)
[2019-12-31 20:02] LABS: CHOLESTEROL/HDL RATIO 4.6
[2020-01-01 03:55] VITALS: BP 138/81
[2020-01-01] MEDS: IV NORMAL SALINE 1000ML BAG 1,000 ML IV SCH (05:40)
[2020-01-01] MEDS: PIPERACILLIN/TAZOBACTAM 3.375 GM in IV NORMAL SALINE 50ML 50 ML IV SCH ×3 (05:54→18:04)
[2020-01-01 07:00] VITALS: BP 150/86
[2020-01-01] MEDS: ENOXAPARIN 40 MG/0.4 ML SYRINGE. SQ SCH (08:32)
[2020-01-01] MEDS: PANTOPRAZOLE IV PUSH 40 MG VIAL. IVP SCH (08:32)
[2020-01-01] MEDS: POTASSIUM CL 20MEQ-0.45% NACL 1,000 ML IV SCH (08:33)
--- NOTE | 2020-01-01 08:37 | PDOC ---
Infectious Disease Note Subjective Subjective Feels a little better. Flatus this am. still abdominal distention Diminished appetite, + hiccups Less abdominal pain + drainage from drain No fevers/chills/N/V/BM ROS ROS o/w neg Vital Sign Vital Signs Vital Signs Date Time Temp Pulse Resp B/P (MAP) Pulse Ox O2 Delivery O2 Flow Rate FiO2 01/01/20 07:00 98.8 102 18 150/86 (107) 94 Room Air 98.8 12/31/19 20:00 2.0 Physical Exam PHYSICAL EXAM GENERAL: Propped up in bed, alert, NAD HEENT: Pupils equally round and reactive. Oropharynx is pink and moist. No thrush. NECK: Supple. LUNGS: Clear to auscultation. HEART: S1, S2. ABDOMEN: Obese, distended, mildly tender, hypoactive bowel sounds. HEMA intact - serous drainage - NGT EXTREMITIES: No gross edema or cyanosis. DERMATOLOGIC: Warm to touch without signs of rash. NEUROLOGIC: Alert and answering questions appropriately. PIV Labs Micro CT 12/30 Impression: New distal small bowel obstruction. Objective Assessment Gangrenous appendicitis s/p laparoscopic appendectomy, 12/28 Leukocytosis in part reactive steroids and surgery, some better -clinically looks and feels better Tachycardia - Card following - ? reactive SBO - on CT 12/30 Hypertension Hyperglycemia Abdominal pain Plan Plan of Care Continue Zosyn s/p dexamethasone, 12/28 s/p flu vaccine, Monitor drain output Supportive care Await gen surg f/u labs in am D/w nursing YAKOV NAIDU MD Jan 01, 2020 08:37
[2020-01-01] MEDS ORDERED: DOCUSATE 100 MG/10 ML SOLUTION. PO SCH (09:00)
--- NOTE | 2020-01-01 10:00 | PDOC ---
SURGICAL PROGRESS NOTE Subjective passing some gas Vital Signs Vital Signs Date Time Temp Pulse Resp B/P (MAP) Pulse Ox O2 Delivery O2 Flow Rate FiO2 01/01/20 07:00 98.8 102 18 150/86 (107) 94 Room Air 98.8 12/31/19 20:00 2.0 I&O Intake and Output 01/01/20 07:00 Intake Total 1900 ml Output Total 2345 ml Balance -445 ml Intake Oral 0 ml Other 1900 ml Output Urine Total 1550 ml Gastric Drainage Total 570 ml Drainage Total 225 ml HEMA remains serous, volume slowly decreasing PATIENT HAS A PIZANO: No General: Alert Abdomen: Soft, Other (distended) Labs Laboratory Tests Test 12/30/19 22:28 12/31/19 03:50 Lactic Acid Level 1.8 mmol/L (0.4-2.0) White Blood Count 12.6 x10^3/uL (4.0-11.0) Red Blood Count 5.01 x10^6/uL (4.30-5.70) Hemoglobin 15.2 g/dL (13.0-17.5) Hematocrit 43.9 % (39.0-53.0) Mean Corpuscular Volume 88 fL (79-100) Mean Corpuscular Hemoglobin 31 pg (25-35) Mean Corpuscular Hemoglobin Concent 35 g/dL (31-37) Red Cell Distribution Width 13.7 % (11.5-14.5) Platelet Count 218 x10^3/uL (140-400) Neutrophils (%) (Auto) 81 % (31-73) Lymphocytes (%) (Auto) 9 % (24-48) Monocytes (%) (Auto) 10 % (0-9) Eosinophils (%) (Auto) 0 % (0-3) Basophils (%) (Auto) 0 % (0-3) Neutrophils # (Auto) 10.2 x10^3/uL (1.8-7.7) Lymphocytes # (Auto) 1.1 x10^3/uL (1.0-4.8) Monocytes # (Auto) 1.3 x10^3/uL (0.0-1.1) Eosinophils # (Auto) 0.0 x10^3/uL (0.0-0.7) Basophils # (Auto) 0.0 x10^3/uL (0.0-0.2) Sodium Level 136 mmol/L (136-145) Potassium Level 4.0 mmol/L (3.5-5.1) Chloride Level 101 mmol/L (98-107) Carbon Dioxide Level 24 mmol/L (21-32) Anion Gap 11 (6-14) Blood Urea Nitrogen 27 mg/dL (8-26) Creatinine 1.0 mg/dL (0.7-1.3) Estimated GFR (Cockcroft-Gault) 77.6 BUN/Creatinine Ratio 27 (6-20) Glucose Level 139 mg/dL (70-99) Calcium Level 7.9 mg/dL (8.5-10.1) Total Bilirubin 0.7 mg/dL (0.2-1.0) Aspartate Amino Transf (AST/SGOT) 12 U/L (15-37) Alanine Aminotransferase (ALT/SGPT) 18 U/L (16-63) Alkaline Phosphatase 58 U/L (46-116) Total Protein 5.7 g/dL (6.4-8.2) Albumin 2.6 g/dL (3.4-5.0) Albumin/Globulin Ratio 0.8 (1.0-1.7) Triglycerides Level 221 mg/dL (0-150) Cholesterol Level 180 mg/dL (0-200) LDL Cholesterol, Calculated 97 mg/dL (0-100) VLDL Cholesterol, Calculated 44 mg/dL (0-40) Non-HDL Cholesterol Calculated 141 mg/dL (0-129) HDL Cholesterol 39 mg/dL (40-60) Cholesterol/HDL Ratio 4.6 Thyroid Stimulating Hormone (TSH) 0.370 uIU/mL (0.358-3.74) Assessment/Plan POD 4 l/s appendectomy NG output decreasing? vs patency trial NG in the AM appreciate cardiology input ALICE BARRERA MD Jan 01, 2020 10:00
[2020-01-01 11:00] VITALS: BP 136/98
--- NOTE | 2020-01-01 11:23 | PDOC ---
PROGRESS NOTES Chief Complaint Chief Complaint impression Acute appendicitis./Gangrenous appendicitis. VOMITING, DISTENDED Abnormal bowel gas pattern suggesting a distal small bowel obstruction versus left-sided colitis. Arrhythmia: brief episodes of x2 NSVT otherwise reactive sinus tachycardia. 3/ pm /3 New distal small bowel obstruction. 37 min pt exam, chart review, > 50% of time spent with exam, chart review, pt care coordination History of Present Illness History of Present Illness Mr Brizuela is a 54 yo M who developed acute onset of abdominal pain after working an evening shift at a [employer]. Pain shifted to the right lower quadrant area associated with nausea, vomiting and chills. A CT abdomen/pelvis showed a showed a distended appendix with moderate periappendiceal inflammatory change. had laparoscopic appendectomy and placement of a 19-Serbian Javy drain on . The appendix was gangrenous and friable without obvious periappendiceal abscess. Developed SBO, NGT placed. To CT 12/30 Vitals Vitals Vital Signs Date Time Temp Pulse Resp B/P (MAP) Pulse Ox O2 Delivery O2 Flow Rate FiO2 01/01/20 08:00 Room Air 01/01/20 07:00 98.8 102 18 150/86 (107) 94 98.8 12/31/19 20:00 2.0 Physical Exam Physical Exam GENERAL: Propped up in bed, alert, NAD HEENT: Pupils equally round and reactive. Oropharynx is pink and moist. No thrush. NECK: Supple. LUNGS: Clear to auscultation. HEART: S1, S2. ABDOMEN: Obese, distended, mildly tender, hypoactive bowel sounds. HEMA intact - serous drainage - NGT EXTREMITIES: No gross edema or cyanosis. DERMATOLOGIC: Warm to touch without signs of rash. NEUROLOGIC: Alert and answering questions appropriately. PIV General: Alert, Oriented X3, Cooperative Heart: Regular rate, Normal S1, Normal S2, Other (heart tones regular, tachycardic. Not on tele) Lungs: Clear Abdomen: Soft, Other (distended) Extremities: No edema, Normal pulses Skin: No significant lesion Labs LABS PATIENT: JACKLYN BRIZUELA DACCOUNT: [id number] : 1965 LOCATION: [address] [place] [address] AGE: 54 SEX: M EXAM STATUS: ADM IN ORD. PHYSICIAN: JERAMIE MUNOZ REASON: SBO PROCEDURE: CT ABDOMEN PELVIS WO CONTRAST Abdominal and Pelvis CT, Without Contrast: History: Abnormal calculi KUB suggesting small bowel obstruction Comparison: December 28, 2019. Procedure: Axial images are obtained of the abdomen and pelvis, without IV or oral contrast. Oral Contrast: No Findings: Evaluation of solid organs is limited without contrast. Patchy linear opacities in the lung bases. There is a percutaneous drain on the right. The colon is mostly collapsed. There is multiple dilated air and fluid-filled loops of small bowel. The distal small bowel is collapsed. An addended sac transition zone is not seen. This postoperative changes in the right hemipelvis consistent with recent appendectomy. Liver: Normal. Spleen: Normal. Pancreas: Normal. Adrenal Glands: Normal. Kidneys: Normal. There is no free air or free fluid. There is no lymphadenopathy. The urinary bladder appears normal. There is no pericolonic inflammation identified. Impression: New distal small bowel obstruction. End impression PQRS Compliance Statement: One or more of the following individualized dose reduction techniques were utilized for this examination: 1. Automated exposure control 2. Adjustment of the mA and/or kV according to patient size 3. Use of iterative reconstruction technique Electronically signed by: Lauro Joshi III, MD (12/31/2019 4:40 PM) [id number] DICTATED and SIGNED BY: LAURO JOSHI III, MD DATE: 12/31/19 1640 Comment Review of Relevant I have reviewed the following items eileen (where applicable) has been applied. Labs Laboratory Tests Test 12/30/19 22:28 12/31/19 03:50 Lactic Acid Level 1.8 mmol/L (0.4-2.0) White Blood Count 12.6 x10^3/uL (4.0-11.0) Red Blood Count 5.01 x10^6/uL (4.30-5.70) Hemoglobin 15.2 g/dL (13.0-17.5) Hematocrit 43.9 % (39.0-53.0) Mean Corpuscular Volume 88 fL (79-100) Mean Corpuscular Hemoglobin 31 pg (25-35) Mean Corpuscular Hemoglobin Concent 35 g/dL (31-37) Red Cell Distribution Width 13.7 % (11.5-14.5) Platelet Count 218 x10^3/uL (140-400) Neutrophils (%) (Auto) 81 % (31-73) Lymphocytes (%) (Auto) 9 % (24-48) Monocytes (%) (Auto) 10 % (0-9) Eosinophils (%) (Auto) 0 % (0-3) Basophils (%) (Auto) 0 % (0-3) Neutrophils # (Auto) 10.2 x10^3/uL (1.8-7.7) Lymphocytes # (Auto) 1.1 x10^3/uL (1.0-4.8) Monocytes # (Auto) 1.3 x10^3/uL (0.0-1.1) Eosinophils # (Auto) 0.0 x10^3/uL (0.0-0.7) Basophils # (Auto) 0.0 x10^3/uL (0.0-0.2) Sodium Level 136 mmol/L (136-145) Potassium Level 4.0 mmol/L (3.5-5.1) Chloride Level 101 mmol/L (98-107) Carbon Dioxide Level 24 mmol/L (21-32) Anion Gap 11 (6-14) Blood Urea Nitrogen 27 mg/dL (8-26) Creatinine 1.0 mg/dL (0.7-1.3) Estimated GFR (Cockcroft-Gault) 77.6 BUN/Creatinine Ratio 27 (6-20) Glucose Level 139 mg/dL (70-99) Calcium Level 7.9 mg/dL (8.5-10.1) Total Bilirubin 0.7 mg/dL (0.2-1.0) Aspartate Amino Transf (AST/SGOT) 12 U/L (15-37) Alanine Aminotransferase (ALT/SGPT) 18 U/L (16-63) Alkaline Phosphatase 58 U/L (46-116) Total Protein 5.7 g/dL (6.4-8.2) Albumin 2.6 g/dL (3.4-5.0) Albumin/Globulin Ratio 0.8 (1.0-1.7) Triglycerides Level 221 mg/dL (0-150) Cholesterol Level 180 mg/dL (0-200) LDL Cholesterol, Calculated 97 mg/dL (0-100) VLDL Cholesterol, Calculated 44 mg/dL (0-40) Non-HDL Cholesterol Calculated 141 mg/dL (0-129) HDL Cholesterol 39 mg/dL (40-60) Cholesterol/HDL Ratio 4.6 Thyroid Stimulating Hormone (TSH) 0.370 uIU/mL (0.358-3.74) Medications Current Medications Sevoflurane (Ultane) 60 ml STK-MED ONCE IH ; Start 12/28/19 at 17:29; Stop 12/28/19 at 17:30; Status DC Midazolam HCl (Versed) 2 mg STK-MED ONCE .ROUTE ; Start 12/28/19 at 17:30; Stop 12/28/19 at 17:30; Status DC Fentanyl Citrate (Fentanyl 2ml Vial) 100 mcg STK-MED ONCE .ROUTE ; Start at 17:30; Stop 12/28/19 at 17:30; Status DC Glycopyrrolate (Robinul) 1 mg STK-MED ONCE .ROUTE ; Start 12/28/19 at 17:30; St op 12/28/19 at 17:31; Status DC Neostigmine [place] (Neostigmine Methylsulfate) 5 mg STK-MED ONCE .ROUTE ; Start 12/28/19 at 17:30; Stop 12/28/19 at 17:31; Status DC Rocuronium [place] (Zemuron) 50 mg STK-MED ONCE .ROUTE ; Start 12/28/19 at 17:30; Stop 12/28/19 at 17:31; Status DC Succinylcholine Chloride (Anectine) 200 mg STK-MED ONCE .ROUTE ; Start 12/28/19 at 17:30; Stop 12/28/19 at 17:31; Status DC Dexamethasone Sodium Phosphate (Decadron) 4 mg STK-MED ONCE .ROUTE ; Start 12/28/19 at 17:31; Stop 12/28/19 at 17:31; Status DC Ondansetron HCl (Zofran) 4 mg STK-MED ONCE .ROUTE ; Start 12/28/19 at 17:31; Stop 12/28/19 at 17:31; Status DC Ketorolac Tromethamine (Toradol 30mg Vial) 30 mg STK-MED ONCE .ROUTE ; Start 12/28/19 at 17:31; Stop 12/28/19 at 17:31; Status DC Lidocaine HCl (Lidocaine Pf 2% Vial) 5 ml STK-MED ONCE .ROUTE ; Start 12/28/19 at 17:31; Stop 12/28/19 at 17:31; Status DC Propofol 20 ml @ As Directed STK-MED ONCE IV ; Start 12/28/19 at 17:31; Stop 12/28/19 at 17:31; Status DC Metronidazole 100 ml @ 100 mls/hr 1X PREOP PRN IV PER PROTOCOL Last administered on 12/28/19at 17:37; Start 12/28/19 at 17:45; Stop 12/29/19 at 18:45; Status DC Bupivacaine HCl/ Epinephrine Bitart (Sensorcain-Epi 0.5%-1:203139 Mpf) 30 ml STK-MED ONCE .ROUTE Last administered on 12/28/19at 18:11; Start 12/28/19 at 17:34; Stop 12/28/19 at 17:34; Status DC Metronidazole 100 ml @ As Directed STK-MED ONCE IV ; Start 12/28/19 at 17:36; Stop 12/28/19 at 17:36; Status DC Metronidazole 100 ml @ 100 mls/hr 1X ONCE IV ; Start 12/28/19 at 17:45; Stop 12/28/19 at 18:44; Status DC Ondansetron HCl (Zofran) 4 mg PRN Q6HRS PRN IV NAUSEA/VOMITING; Start 12/28/19 at 18:00; Stop 12/29/19 at 17:59; Status DC Fentanyl Citrate (Fentanyl 2ml Vial) 25 mcg PRN Q5MIN PRN IV MILD PAIN 1-3; Start 12/28/19 at 18:00; Stop 12/29/19 at 17:59; Status DC Fentanyl Citrate (Fentanyl 2ml Vial) 50 mcg PRN Q5MIN PRN IV MODERATE TO SEVERE PAIN; Start 12/28/19 at 18:00; Stop 12/29/19 at 17:59; Status DC Morphine Sulfate (Morphine Sulfate) 1 mg PRN Q10MIN PRN IV SEVERE PAIN 7-10; Start 12/28/19 at 18:00; Stop 12/29/19 at 17:59; Status DC Ringer's Solution 1,000 ml @ 30 mls/hr Q24H IV Last administered on 12/28/19at 19:43; Start 12/28/19 at 17:50; Stop 12/29/19 at 05:49; Status DC Lidocaine HCl (Xylocaine-Mpf 1% 2ml Vial) 2 ml PRN 1X PRN ID PRIOR TO IV START; Start 12/28/19 at 18:00; Stop 12/29/19 at 17:59; Status DC Hydromorphone HCl (Dilaudid) 0.5 mg PRN Q10MIN PRN IV SEV PAIN, Second choice; Start 12/28/19 at 18:00; Stop 12/29/19 at 17:59; Status DC Prochlorperazine Edisylate (Compazine) 5 mg PACU PRN PRN IV NAUSEA, MRX1; Start 12/28/19 at 18:00; Stop 12/29/19 at 17:59; Status UNV Enoxaparin Sodium (Lovenox 40mg Syringe) 40 mg DAILY SQ Last administered on 01/01/20at 08:32; Start 12/29/19 at 09:00 Sodium Chloride (Normal Saline Flush) 3 ml QSHIFT PRN IV AFTER MEDS AND BLOOD DRAWS; Start 12/28/19 at 19:15 Potassium Chloride/Sodium Chloride 1,000 ml @ 75 mls/hr [id number] IV Last administered on 01/01/20at 08:33; Start 12/28/19 at 20:00 Dextrose (Dextrose 50%-Water Syringe) 12.5 gm PRN Q15MIN PRN IV SEE COMMENTS; Start 12/28/19 at 19:15 Oxycodone/ Acetaminophen (Percocet 5/325) 1 tab PRN Q4HRS PRN PO MILD PAIN, 1ST CHOICE Last administered on 12/29/19at 09:19; Start 12/28/19 at 19:15 Oxycodone/ Acetaminophen (Percocet 5/325) 2 tab PRN Q4HRS PRN PO MODERATE PAIN, SEVERE PAIN Last administered on 12/29/19at 18:14; Start 12/28/19 at 19:15 Naloxone HCl (Narcan) 0.4 mg PRN Q2MIN PRN IV SEE INSTRUCTIONS; Start 12/28/19 at 19:15 Sodium Chloride 1,000 ml @ 25 mls/hr Q24H IV ; Start 12/28/19 at 19:13 Hydromorphone HCl (Dilaudid) 1 mg PRN Q4HRS PRN IV SEVERE PAIN 7-10; Start 12/02 06/19 at 19:15; Status Cancel Docusate Sodium (Colace) 100 mg BID PO Last administered on 12/30/19at 08:30; Start 12/28/19 at 21:00; Stop 01/01/20 at 07:59; Status DC Ondansetron HCl (Zofran) 4 mg PRN Q6HRS PRN IVP NAUESA, 1ST CHOICE; Start 12/28/19 at 19:15 Cefazolin Sodium/ Dextrose 50 ml @ 100 mls/hr Q8HRS IV Last administered on 12/29/19at 14:19; Start 12/28/19 at 22:00; Stop 12/29/19 at 14:24; Status DC Metronidazole 100 ml @ 100 mls/hr Q12HR IV Last administered on 12/29/19at 09:18; Start 12/28/19 at 21:00; Stop 12/29/19 at 14:24; Status DC Info (FLU VACCINE SCREEN per RX) 1 each PRN 1X PRN MC SEE COMMENTS; Start 12/29/19 at 04:30; Status UNV Influenza Virus Vaccine Quadrival (Afluria Quad 2019-20 (3yr Up) Syringe) 0.5 ml ONCE ONCE VAX IM Last administered on 12/29/19at 09:21; Start 12/29/19 at 09:00; Stop 12/29/19 at 09:01; Status DC Piperacillin Sod/ Tazobactam Sod 3.375 gm/Sodium Chloride 50 ml @ 100 mls/hr Q6HRS IV Last administered on 01/01/20at 05:54; Start 12/29/19 at 18:00 Bismuth Subsalicylate (Pepto-Bismol) 786 mg PRN Q3HRS PRN PO DIARRHEA Last administered on 12/29/19at 22:33; Start 12/29/19 at 22:30 Lisinopril (Prinivil) 5 mg 1X ONCE PO Last administered on 12/30/19at 01:26; Start 12/30/19 at 01:30; Stop 12/30/19 at 01:31; Status DC Benzocaine (Hurricaine One) 1 spray 1X ONCE MM Last administered on 12/30/19at 12:30; Start 12/30/19 at 12:30; Stop 12/30/19 at 12:31; Status DC Lidocaine HCl (Glydo (Lidocaine) Jelly) 2 kenny 1X ONCE MM Last administered on 12/30/19at 12:30; Start 12/30/19 at 12:30; Stop 12/30/19 at 12:31; Status DC Throat Lozenges (Cepacol Sore Throat Lozenge) 1 maria g PRN Q2HRS PRN PO SORE THROAT; Start 12/30/19 at 15:00 Phenol (Chloraseptic) 1 spray PRN Q2HR PRN PO SORE THROAT- 2ND CHOICE; Start 12/30/19 at 15:00 Hydromorphone HCl (Dilaudid) 1 mg PRN Q4HRS PRN IV pain; Start 12/30/19 at 15:00 Pantoprazole Sodium (PROTONIX VIAL for IV PUSH) 40 mg DAILYAC IVP Last administered on 01/01/20at 08:32; Start 12/30/19 at 23:00 Enalaprilat (Vasotec Inj) 1.25 mg Q6HRS IVP Last administered on 12/30/19at 20:45; Start 12/30/19 at 21:00; Stop 12/30/19 at 23:15; Status DC Chlorpromazine HCl 12.5 mg/ Dextrose 50.5 ml @ 100 mls/hr PRN Q8HRS PRN IV HICCUPS Last administered on 12/31/19at 19:37; Start 12/30/19 at 20:30 Sodium Chloride 500 ml @ 500 mls/hr 1X ONCE IV Last administered on 12/30/19at 23:47; Start 12/30/19 at 23:30; Stop 12/31/19 at 00:29; Status DC Vancomycin HCl 1 gm/Sodium Chloride 250 ml @ 250 mls/hr Q12H IV ; Start 12/30/19 at 23:15; Status UNV Vancomycin HCl 2 gm/Sodium Chloride 500 ml @ 250 mls/hr 1X ONCE IV Last administered on 12/30/19at 23:47; Start 12/30/19 at 23:30; Stop 12/31/19 at 01:29; Status DC Vancomycin HCl 1.25 gm/Sodium Chloride 250 ml @ 167 mls/hr Q12H IV Last administered on 12/31/19at 13:17; Start 12/31/19 at 12:00; Stop 12/31/19 at 13:57; Status DC Vancomycin HCl (Vancomycin Trough Level) 1 each 1X ONCE MC ; Start 01/01/20 at 11:30; Stop 12/31/19 at 13:58; Status DC Vancomycin HCl (Vanco Per Pharmacy) 1 each PRN DAILY PRN MC SEE COMMENTS Last administered on 12/31/19at 02:17; Start 12/30/19 at 23:15; Stop 12/31/19 at 13:57; Status DC Enalaprilat (Vasotec Inj) 1.25 mg PRN Q6HRS PRN IVP SBP >160; Start 12/30/19 at 23:15 Sodium Chloride 1,000 ml @ 75 mls/hr [id number] IV Last administered on 12/31/19at 18:44; Start 12/31/19 at 16:45 Docusate Sodium (Colace Solution) 100 mg BID PO Last administered on 01/01/20at 08:32; Start 01/01/20 at 09:00 Vitals/I & O Vital Sign - Last 24 Hours 12/31/19 12/31/19 12/31/19 12/31/19 15:20 18:00 18:11 20:00 Temp 98.6 98.3 98.6 98.3 Pulse 117 109 Resp 20 18 B/P (MAP) 128/86 (100) 134/87 (103) Pulse Ox 95 97 O2 Delivery Room Air Room Air Room Air Room Air O2 Flow Rate 2.0 12/31/19 01/01/20 01/01/20 01/01/20 23:00 03:55 07:00 08:00 Temp 98.4 98.9 98.8 98.4 98.9 98.8 Pulse 110 108 102 Resp 18 18 18 B/P (MAP) 146/85 (105) 138/81 (100) 150/86 (107) Pulse Ox 96 97 94 O2 Delivery Room Air Room Air Room Air Room Air Intake and Output 12/31/19 12/31/19 01/01/20 15:00 23:00 07:00 Intake Total 1900 ml Output Total 915 ml 670 ml 760 ml Balance -915 ml -670 ml 1140 ml AMANDA CAMP MD Jan 01, 2020:23
--- NOTE | 2020-01-01 12:47 | PDOC ---
CARDIO Progress Notes Date and Time Date of Service 01/01/2020 Time of Evaluation 1220 Subjective Subjective: No Chest Pain, No shortness of breath, No Palpitations, Other (abd surgical pain controlled) Vitals Vitals Vital Signs Date Time Temp Pulse Resp B/P (MAP) Pulse Ox O2 Delivery O2 Flow Rate FiO2 01/01/20 11:00 98.0 97 18 136/98 (111) 97 Room Air 98.0 12/31/19 20:00 2.0 Weight Weight [ ] Input and Output Intake and Output Intake and Output 01/01/20 07:00 Intake Total 1900 ml Output Total 2345 ml Balance -445 ml Intake Oral 0 ml Other 1900 ml Output Urine Total 1550 ml Gastric Drainage Total 570 ml Drainage Total 225 ml Physical Exam HEENT: Neck Supple W Full Motion Chest: Symmetric LUNGS: Clear to Auscultation Heart: RRR (SR/ST) Abdomen: Other (truncal obesity) Extremities: No Edema, No Calf Tenderness Neurology: alert, oriented, follow commands Assessment Assessment 1. Acute appendicitis; s/p lap appendectomy 2. SBO: NGT in place for decompression 3. Arrhythmia: brief episodes of x2 NSVT otherwise reactive sinus tachycardia. 4. Hypertension; controlled 5. Hyperlipidemia Recommendations 1. Currently NPO. IVF. Pain controlled. Analgesic PRN. 2. BMP and Mg and replace K and Mg as warranted. 3. Supportive care. May transfer to S. LIANA SAN APRN Jan 01, 2020 12:47
--- NOTE | 2020-01-01 12:50 | PDOC ---
Subjective: Subjective: Passed gas several times, still distended, maybe less tender. Objective: Vital Signs: Vital Signs Date Time Temp Pulse Resp B/P (MAP) Pulse Ox O2 Delivery O2 Flow Rate FiO2 01/01/20 11:00 98.0 97 18 136/98 (111) 97 Room Air 98.0 12/31/19 20:00 2.0 Imaging: CT A/P 12/30 Impression: New distal small bowel obstruction. PE: GEN: w/ NGT tube - bilious LUNGS: clear anteriorly HEART: borderline tachycardic ABD: distended, drain serous, quiet NEURO/PSYCH: A & O 3 A/P: S/p appendectomy, SBO -- Nurse asked about giving Colace - advised to stop. Continue NG, continue per surgery. Labs to be rechecked tomorrow. Hemodynamically unstable?: No Is patient in severe pain?: No Is NPO status required?: Yes JERAMIE MUNOZ Jan 01, 2020 12:50
[2020-01-01 14:17] LABS: CALCIUM 8.1 mg/dL (8.5-10.1); CREATININE 1.1 mg/dL (0.7-1.3); GFR 69.5; MAGNESIUM 2.2 mg/dL (1.8-2.4); POTASSIUM 4.2 mmol/L (3.5-5.1)
[2020-01-01 15:00] VITALS: BP 158/97
[2020-01-01 19:00] VITALS: BP 152/91
[2020-01-01 22:38] VITALS: BP 157/97
[2020-01-02] MEDS: PIPERACILLIN/TAZOBACTAM 3.375 GM in IV NORMAL SALINE 50ML 50 ML IV SCH ×4 (00:11→17:19)
[2020-01-02 03:22] VITALS: BP 145/90
[2020-01-02] MEDS: PANTOPRAZOLE IV PUSH 40 MG VIAL. IVP SCH (05:37)
[2020-01-02 07:00] VITALS: BP 142/95
[2020-01-02] MEDS: ENOXAPARIN 40 MG/0.4 ML SYRINGE. SQ SCH (08:01)
[2020-01-02] MEDS: AA 4.25 %/CALCIUM/LYTES/D5W 1,000 ML IV SCH ×2 (08:01→21:09)
--- NOTE | 2020-01-02 09:24 | PDOC ---
SURGICAL PROGRESS NOTE Subjective up to side of the bed has some hiccups adequate pain control passing gas Vital Signs Vital Signs Date Time Temp Pulse Resp B/P (MAP) Pulse Ox O2 Delivery O2 Flow Rate FiO2 01/02/20 07:00 97.9 100 18 142/95 (111) 94 Room Air 97.9 I&O Intake and Output 01/02/20 07:00 Intake Total 1866 ml Output Total 2385 ml Balance -519 ml IV Total 1866 ml Output Urine Total 1250 ml Gastric Drainage Total 900 ml Drainage Total 235 ml PATIENT HAS A PIZANO: No General: Alert, Oriented X3, No acute distress HEENT: Other (NG with dark output) Abdomen: Soft, Other (distended) Labs Laboratory Tests Test 01/01/20 13:35 Sodium Level 134 mmol/L (136-145) Potassium Level 4.2 mmol/L (3.5-5.1) Chloride Level 102 mmol/L (98-107) Carbon Dioxide Level 23 mmol/L (21-32) Anion Gap 9 (6-14) Blood Urea Nitrogen 23 mg/dL (8-26) Creatinine 1.1 mg/dL (0.7-1.3) Estimated GFR (Cockcroft-Gault) 69.5 Glucose Level 99 mg/dL (70-99) Calcium Level 8.1 mg/dL (8.5-10.1) Magnesium Level 2.2 mg/dL (1.8-2.4) Laboratory Tests Test 01/01/20 13:35 Sodium Level 134 mmol/L (136-145) Potassium Level 4.2 mmol/L (3.5-5.1) Chloride Level 102 mmol/L (98-107) Carbon Dioxide Level 23 mmol/L (21-32) Anion Gap 9 (6-14) Blood Urea Nitrogen 23 mg/dL (8-26) Creatinine 1.1 mg/dL (0.7-1.3) Estimated GFR (Cockcroft-Gault) 69.5 Glucose Level 99 mg/dL (70-99) Calcium Level 8.1 mg/dL (8.5-10.1) Magnesium Level 2.2 mg/dL (1.8-2.4) Assessment/Plan POD 5 slow return of bowel function, still with significant NG output afebrile try to wean NG d/w ALICE Page MD Jan 02, 2020 09:24
[2020-01-02 11:00] VITALS: BP 161/99
--- NOTE | 2020-01-02 11:22 | PDOC ---
Objective: Objective: Reviewed chart and d/w nurse - plans to try off suction, then intermittent. On PPN, IV PPI. Vital Signs: Vital Signs Date Time Temp Pulse Resp B/P (MAP) Pulse Ox O2 Delivery O2 Flow Rate FiO2 01/02/20 08:00 Room Air 01/02/20 07:00 97.9 100 18 142/95 (111) 94 97.9 PE: GEN: NAD HEENT: NG bilious HEART: mild tachycardia on monitor ABD: distended NEURO/PSYCH: sleeping, not awakened A/P: S/p appendectomy, SBO -- Continue per surgery. Hemodynamically unstable?: No Is patient in severe pain?: No Is NPO status required?: Yes JERAMIE MUNOZ Jan 02, 2020 11:22
--- NOTE | 2020-01-02 11:37 | PDOC ---
Infectious Disease Note Subjective Subjective Feels a little better. Flatus this am. still abdominal distention. Feels like he needs to have a BM but feels his muscles are too weak to get it moving Hiccups Diminished appetite, + hiccups Less abdominal pain + drainage from drain No fevers/chills/N/V/BM ROS ROS o/w neg Vital Sign Vital Signs Vital Signs Date Time Temp Pulse Resp B/P (MAP) Pulse Ox O2 Delivery O2 Flow Rate FiO2 01/02/20 08:00 Room Air 01/02/20 07:00 97.9 100 18 142/95 (111) 94 97.9 Physical Exam PHYSICAL EXAM GENERAL: Propped up in bed, alert, NAD HEENT: Pupils equally round and reactive. Oropharynx is pink and moist. No thrush. NECK: Supple. LUNGS: Clear to auscultation. HEART: S1, S2. ABDOMEN: Obese, distended but softer, Not as tender, hypoactive bowel sounds. HEMA intact - serous drainage - NGT EXTREMITIES: No gross edema or cyanosis. DERMATOLOGIC: Warm to touch without signs of rash. NEUROLOGIC: Alert and answering questions appropriately. PIV Labs Lab Laboratory Tests Test 01/01/20 13:35 Sodium Level 134 mmol/L (136-145) Potassium Level 4.2 mmol/L (3.5-5.1) Chloride Level 102 mmol/L (98-107) Carbon Dioxide Level 23 mmol/L (21-32) Anion Gap 9 (6-14) Blood Urea Nitrogen 23 mg/dL (8-26) Creatinine 1.1 mg/dL (0.7-1.3) Estimated GFR (Cockcroft-Gault) 69.5 Glucose Level 99 mg/dL (70-99) Calcium Level 8.1 mg/dL (8.5-10.1) Magnesium Level 2.2 mg/dL (1.8-2.4) Micro CT 12/30 Impression: New distal small bowel obstruction. Objective Assessment Gangrenous appendicitis s/p laparoscopic appendectomy, 12/28 Leukocytosis in part reactive steroids and surgery, some better -clinically looks and feels better Tachycardia - Card following - ? reactive SBO - on CT 12/30 Hypertension Hyperglycemia Abdominal pain Plan Plan of Care Continue Zosyn pjlan to wean between 7 and 10 days post surgery if stable Labs in am s/p dexamethasone, 12/28 s/p flu vaccine, Monitor drain output Supportive care Await gen surg f/u labs in am D/w nursing YAKOV NAIDU MD Jan 02, 2020 11:37
--- NOTE | 2020-01-02 12:01 | PDOC ---
PROGRESS NOTES Chief Complaint Chief Complaint impression Acute appendicitis./Gangrenous appendicitis. VOMITING, DISTENDED Abnormal bowel gas pattern suggesting a distal small bowel obstruction versus left-sided colitis. Arrhythmia: brief episodes of x2 NSVT otherwise reactive sinus tachycardia. 3/2 pm pod # 5 3/4 New distal small bowel obstruction. 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 Pain shifted to the right lower quadrant area associated with nausea, vomiting and chills. A CT abdomen/pelvis showed a showed a distended appendix with moderate periappendiceal inflammatory change. had laparoscopic appendectomy and placement of a 19-[place] Javy drain on . The appendix was gangrenous and friable without obvious periappendiceal abscess. Developed SBO, NGT placed. To CT 12/30 Vitals Vitals Vital Signs Date Time Temp Pulse Resp B/P (MAP) Pulse Ox O2 Delivery O2 Flow Rate FiO2 01/02/20 11:00 98.0 96 18 161/99 (119) 96 Room Air 98.0 Physical Exam Physical Exam GENERAL: Propped up in bed, alert, NAD HEENT: Pupils equally round and reactive. Oropharynx is pink and moist. No thrush. NECK: Supple. LUNGS: Clear to auscultation. HEART: S1, S2. ABDOMEN: Obese, distended, mildly tender, hypoactive bowel sounds. HEMA intact - serous drainage - NGT EXTREMITIES: No gross edema or cyanosis. DERMATOLOGIC: Warm to touch without signs of rash. NEUROLOGIC: Alert and answering questions appropriately. PIV General: Alert, Oriented X3, No acute distress Heart: Regular rate, Normal S1, Normal S2, Other (heart tones regular, tachyc ardic. Not on tele) Lungs: Clear Abdomen: Soft, Other (distended) Extremities: No edema, Normal pulses Skin: No significant lesion Labs LABS REASON: SBO PROCEDURE: CT ABDOMEN PELVIS WO CONTRAST Abdominal and Pelvis CT, Without Contrast: History: Abnormal calculi KUB suggesting small bowel obstruction Comparison: December 28, 2019. Procedure: Axial images are obtained of the abdomen and pelvis, without IV or oral contrast. Oral Contrast: No Findings: Evaluation of solid organs is limited without contrast. Patchy linear opacities in the lung bases. There is a percutaneous drain on the right. The colon is mostly collapsed. There is multiple dilated air and fluid-filled loops of small bowel. The distal small bowel is collapsed. An addended sac transition zone is not seen. This postoperative changes in the right hemipelvis consistent with recent appendectomy. Liver: Normal. Spleen: Normal. Pancreas: Normal. Adrenal Glands: Normal. Kidneys: Normal. There is no free air or free fluid. There is no lymphadenopathy. The urinary bladder appears normal. There is no pericolonic inflammation identified. Impression: New distal small bowel obstruction. End impression PQRS Compliance Statement: One or more of the following individualized dose reduction techniques were utilized for this examination: 1. Automated exposure control 2. Adjustment of the mA and/or kV according to patient size 3. Use of iterative reconstruction technique Electronically signed by: Lauro Joshi III, MD (12/31/2019 4:40 PM) [id number] DICTATED and SIGNED BY: LAURO JOSHI III, MD Laboratory Tests Test 01/01/20 13:35 Sodium Level 134 mmol/L (136-145) Potassium Level 4.2 mmol/L (3.5-5.1) Chloride Level 102 mmol/L (98-107) Carbon Dioxide Level 23 mmol/L (21-32) Anion Gap 9 (6-14) Blood Urea Nitrogen 23 mg/dL (8-26) Creatinine 1.1 mg/dL (0.7-1.3) Estimated GFR (Cockcroft-Gault) 69.5 Glucose Level 99 mg/dL (70-99) Calcium Level 8.1 mg/dL (8.5-10.1) Magnesium Level 2.2 mg/dL (1.8-2.4) Comment Review of Relevant I have reviewed the following items eileen (where applicable) has been applied. Labs Laboratory Tests Test 01/01/20 13:35 Sodium Level 134 mmol/L (136-145) Potassium Level 4.2 mmol/L (3.5-5.1) Chloride Level 102 mmol/L (98-107) Carbon Dioxide Level 23 mmol/L (21-32) Anion Gap 9 (6-14) Blood Urea Nitrogen 23 mg/dL (8-26) Creatinine 1.1 mg/dL (0.7-1.3) Estimated GFR (Cockcroft-Gault) 69.5 Glucose Level 99 mg/dL (70-99) Calcium Level 8.1 mg/dL (8.5-10.1) Magnesium Level 2.2 mg/dL (1.8-2.4) Laboratory Tests Test 01/01/20 13:35 Sodium Level 134 mmol/L (136-145) Potassium Level 4.2 mmol/L (3.5-5.1) Chloride Level 102 mmol/L (98-107) Carbon Dioxide Level 23 mmol/L (21-32) Anion Gap 9 (6-14) Blood Urea Nitrogen 23 mg/dL (8-26) Creatinine 1.1 mg/dL (0.7-1.3) Estimated GFR (Cockcroft-Gault) 69.5 Glucose Level 99 mg/dL (70-99) Calcium Level 8.1 mg/dL (8.5-10.1) Magnesium Level 2.2 mg/dL (1.8-2.4) Medications Current Medications Sevoflurane (Ultane) 60 ml STK-MED ONCE IH ; Start 12/28/19 at 17:29; Stop 12/28/19 at 17:30; Status DC Midazolam HCl (Versed) 2 mg STK-MED ONCE .ROUTE ; Start 12/28/19 at 17:30; Stop 12/28/19 at 17:30; Status DC Fentanyl Citrate (Fentanyl 2ml Vial) 100 mcg STK-MED ONCE .ROUTE ; Start 12/28/19 at 17:30; Stop 12/28/19 at 17:30; Status DC Glycopyrrolate (Robinul) 1 mg STK-MED ONCE .ROUTE ; Start 12/28/19 at 17:30; Stop 12/28/19 at 17:31; Status DC Neostigmine [place] (Neostigmine Methylsulfate) 5 mg STK-MED ONCE .ROUTE ; Start 12/28/19 at 17:30; Stop 12/28/19 at 17:31; Status DC Rocuronium [place] (Zemuron) 50 mg STK-MED ONCE .ROUTE ; Start 12/28/19 at 17:30; Stop 12/28/19 at 17:31; Status DC Succinylcholine Chloride (Anectine) 200 mg STK-MED ONCE .ROUTE ; Start 12/28/19 at 17:30; Stop 12/28/19 at 17:31; Status DC Dexamethasone Sodium Phosphate (Decadron) 4 mg STK-MED ONCE .ROUTE ; Start 12/28/19 at 17:31; Stop 12/28/19 at 17:31; Status DC Ondansetron HCl (Zofran) 4 mg STK-MED ONCE .ROUTE ; Start 12/28/19 at 17:31; Stop 12/28/19 at 17:31; Status DC Ketorolac Tromethamine (Toradol 30mg Vial) 30 mg STK-MED ONCE .ROUTE ; Start 12/28/19 at 17:31; Stop 12/28/19 at 17:31; Status DC Lidocaine HCl (Lidocaine Pf 2% Vial) 5 ml STK-MED ONCE .ROUTE ; Start 12/28/19 at 17:31; Stop 12/28/19 at 17:31; Status DC Propofol 20 ml @ As Directed STK-MED ONCE IV ; Start 12/28/19 at 17:31; Stop 12/28/19 at 17:31; Status DC Metronidazole 100 ml @ 100 mls/hr 1X PREOP PRN IV PER PROTOCOL Last administered on 12/28/19at 17:37; Start 12/28/19 at 17:45; Stop 12/29/19 at 18:45; Status DC Bupivacaine HCl/ Epinephrine Bitart (Sensorcain-Epi 0.5%-1:871960 Mpf) 30 ml STK-MED ONCE .ROUTE Last administered on 12/28/19at 18:11; Start 12/28/19 at 17:34; Stop 12/28/19 at 17:34; Status DC Metronidazole 100 ml @ As Directed STK-MED ONCE IV ; Start 12/28/19 at 17:36; Stop 12/28/19 at 17:36; Status DC Metronidazole 100 ml @ 100 mls/hr 1X ONCE IV ; Start 12/28/19 at 17:45; Stop 12/28/19 at 18:44; Status DC Ondansetron HCl (Zofran) 4 mg PRN Q6HRS PRN IV NAUSEA/VOMITING; Start 12/28/19 at 18:00; Stop 12/29/19 at 17:59; Status DC Fentanyl Citrate (Fentanyl 2ml Vial) 25 mcg PRN Q5MIN PRN IV MILD PAIN 1-3; Start 12/28/19 at 18:00; Stop 12/29/19 at 17:59; Status DC Fentanyl Citrate (Fentanyl 2ml Vial) 50 mcg PRN Q5MIN PRN IV MODERATE TO SEVERE PAIN; Start 12/28/19 at 18:00; Stop 12/29/19 at 17:59; Status DC Morphine Sulfate (Morphine Sulfate) 1 mg PRN Q10MIN PRN IV SEVERE PAIN 7-10; S tart 12/28/19 at 18:00; Stop 12/29/19 at 17:59; Status DC Ringer's Solution 1,000 ml @ 30 mls/hr Q24H IV Last administered on 12/28/19at 19:43; Start 12/28/19 at 17:50; Stop 12/29/19 at 05:49; Status DC Lidocaine HCl (Xylocaine-Mpf 1% 2ml Vial) 2 ml PRN 1X PRN ID PRIOR TO IV START; Start 12/28/19 at 18:00; Stop 12/29/19 at 17:59; Status DC Hydromorphone HCl (Dilaudid) 0.5 mg PRN Q10MIN PRN IV SEV PAIN, Second choice; Start 12/28/19 at 18:00; Stop 12/29/19 at 17:59; Status DC Prochlorperazine Edisylate (Compazine) 5 mg PACU PRN PRN IV NAUSEA, MRX1; Start 12/28/19 at 18:00; Stop 12/29/19 at 17:59; Status UNV Enoxaparin Sodium (Lovenox 40mg Syringe) 40 mg DAILY SQ Last administered on 01/02/20at 08:01; Start 12/29/19 at 09:00 Sodium Chloride (Normal Saline Flush) 3 ml QSHIFT PRN IV AFTER MEDS AND BLOOD DRAWS; Start 12/28/19 at 19:15 Potassium Chloride/Sodium Chloride 1,000 ml @ 75 mls/hr [id number] IV Last administered on 01/01/20at 08:33; Start 12/28/19 at 20:00; Stop 01/01/20 at 15:08; Status DC Dextrose (Dextrose 50%-Water Syringe) 12.5 gm PRN Q15MIN PRN IV SEE COMMENTS; Start 12/28/19 at 19:15 Oxycodone/ Acetaminophen (Percocet 5/325) 1 tab PRN Q4HRS PRN PO MILD PAIN, 1ST CHOICE Last administered on 12/29/19at 09:19; Start 12/28/19 at 19:15 Oxycodone/ Acetaminophen (Percocet 5/325) 2 tab PRN Q4HRS PRN PO MODERATE PAIN, SEVERE PAIN Last administered on 12/29/19at 18:14; Start 12/28/19 at 19:15 Naloxone HCl (Narcan) 0.4 mg PRN Q2MIN PRN IV SEE INSTRUCTIONS; Start 12/28/19 at 19:15 Sodium Chloride 1,000 ml @ 25 mls/hr Q24H IV ; Start 12/28/19 at 19:13; Stop 01/01/20 at 15:08; Status DC Hydromorphone HCl (Dilaudid) 1 mg PRN Q4HRS PRN IV SEVERE PAIN 7-10; Start 12/28/19 at 19:15; Status Cancel Docusate Sodium (Colace) 100 mg BID PO Last administered on 12/30/19at 08:30; Start 12/28/19 at 21:00; Stop 01/01/20 at 07:59; Status DC Ondansetron HCl (Zofran) 4 mg PRN Q6HRS PRN IVP NAUESA, 1ST CHOICE; Start 12/28/19 at 19:15 Cefazolin Sodium/ Dextrose 50 ml @ 100 mls/hr Q8HRS IV Last administered on 12/29/19at 14:19; Start 12/28/19 at 22:00; Stop 12/29/19 at 14:24; Status DC Metronidazole 100 ml @ 100 mls/hr Q12HR IV Last administered on 12/29/19at 09:18; Start 12/28/19 at 21:00; Stop 12/29/19 at 14:24; Status DC Info (FLU VACCINE SCREEN per RX) 1 each PRN 1X PRN MC SEE COMMENTS; Start 12/29/19 at 04:30; Status UNV Influenza Virus Vaccine Quadrival (Afluria Quad 2019-20 (3yr Up) Syringe) 0.5 ml ONCE ONCE VAX IM Last administered on 12/29/19at 09:21; Start 12/29/19 at 09:00; Stop 12/29/19 at 09:01; Status DC Piperacillin Sod/ Tazobactam Sod 3.375 gm/Sodium Chloride 50 ml @ 100 mls/hr Q6HRS IV Last administered on 01/02/20at 11:37; Start 12/29/19 at 18:00 Bismuth Subsalicylate (Pepto-Bismol) 786 mg PRN Q3HRS PRN PO DIARRHEA Last administered on 12/29/19at 22:33; Start 12/29/19 at 22:30 Lisinopril (Prinivil) 5 mg 1X ONCE PO Last administered on 12/30/19at 01:26; Start 12/30/19 at 01:30; Stop 12/30/19 at 01:31; Status DC Benzocaine (Hurricaine One) 1 spray 1X ONCE MM Last administered on 12/30/19at 12:30; Start 12/30/19 at 12:30; Stop 12/30/19 at 12:31; Status DC Lidocaine HCl (Glydo (Lidocaine) Jelly) 2 kenny 1X ONCE MM Last administered on 12/30/19at 12:30; Start 12/30/19 at 12:30; Stop 12/30/19 at 12:31; Status DC Throat Lozenges (Cepacol Sore Throat Lozenge) 1 maria g PRN Q2HRS PRN PO SORE THROAT; Start 12/30/19 at 15:00 Phenol (Chloraseptic) 1 spray PRN Q2HR PRN PO SORE THROAT- 2ND CHOICE; Start 12/30/19 at 15:00 Hydromorphone HCl (Dilaudid) 1 mg PRN Q4HRS PRN IV pain; Start 12/30/19 at 15:00 Pantoprazole Sodium (PROTONIX VIAL for IV PUSH) 40 mg DAILYAC IVP Last administered on 01/02/20at 05:37; Start 12/30/19 at 23:00 Enalaprilat (Vasotec Inj) 1.25 mg Q6HRS IVP Last administered on 12/30/19at 20:45; Start 12/30/19 at 21:00; Stop 12/30/19 at 23:15; Status DC Chlorpromazine HCl 12.5 mg/ Dextrose 50.5 ml @ 100 mls/hr PRN Q8HRS PRN IV HICCUPS Last administered on 12/31/19at 19:37; Start 12/30/19 at 20:30 Sodium Chloride 500 ml @ 500 mls/hr 1X ONCE IV Last administered on 12/30/19at 23:47; Start 12/30/19 at 23:30; Stop 12/31/19 at 00:29; Status DC Vancomycin HCl 1 gm/Sodium Chloride 250 ml @ 250 mls/hr Q12H IV ; Start 12/30/19 at 23:15; Status UNV Vancomycin HCl 2 gm/Sodium Chloride 500 ml @ 250 mls/hr 1X ONCE IV Last administered on 12/30/19at 23:47; Start 12/30/19 at 23:30; Stop 12/31/19 at 01:29; Status DC Vancomycin HCl 1.25 gm/Sodium Chloride 250 ml @ 167 mls/hr Q12H IV Last administered on 12/31/19at 13:17; Start 12/31/19 at 12:00; Stop 12/31/19 at 13:57; Status DC Vancomycin HCl (Vancomycin Trough Level) 1 each 1X ONCE MC ; Start 01/01/20 at 11:30; Stop 12/31/19 at 13:58; Status DC Vancomycin HCl (Vanco Per Pharmacy) 1 each PRN DAILY PRN MC SEE COMMENTS Last administered on 12/31/19at 02:17; Start 12/30/19 at 23:15; Stop 12/31/19 at 13:57; Status DC Enalaprilat (Vasotec Inj) 1.25 mg PRN Q6HRS PRN IVP SBP >160; Start 12/30/19 at 23:15 Sodium Chloride 1,000 ml @ 75 mls/hr [id number] IV Last administered on 12/31/19at 18:44; Start 12/31/19 at 16:45; Stop 01/01/20 at 15:08; Status DC Docusate Sodium (Colace Solution) 100 mg BID PO Last administered on 01/01/20at 08:32; Start 01/01/20 at 09:00; Stop 01/01/20 at 11:58; Status DC Potassium Chloride/Sodium Chloride 1,000 ml @ 30 mls/hr Q24H IV Last administered on 01/02/20at 05:37; Start 01/01/20 at 15:15 Amino Acids/ Electrolytes/ Dextrose 1,000 ml @ 80 mls/hr [id number] IV Last administered on 01/02/20at 08:01; Start 01/02/20 at 08:00 Vitals/I & O Vital Sign - Last 24 Hours 01/01/20 01/01/20 01/01/20 01/01/20 15:00 19:00 19:04 22:38 Temp 97.8 97.9 97.8 97.8 97.9 97.8 Pulse 101 92 98 Resp 18 20 18 B/P (MAP) 158/97 (117) 152/91 (111) 157/97 (117) Pulse Ox 95 95 96 O2 Delivery Room Air Room Air Room Air Room Air 01/02/20 01/02/20 01/02/20 01/02/20 03:22 07:00 08:00 11:00 Temp 98.5 97.9 98.0 98.5 97.9 98.0 Pulse 92 100 96 Resp 18 18 18 B/P (MAP) 145/90 (108) 142/95 (111) 161/99 (119) Pulse Ox 95 94 96 O2 Delivery Room Air Room Air Room Air Room Air Intake and Output 01/01/20 01/01/20 01/02/20 15:00 23:00 07:00 Intake Total 766 ml 1100 ml Output Total 455 ml 750 ml 1180 ml Balance 311 ml -750 ml -80 ml Hemodynamically unstable?: No Is patient in severe pain?: No Is NPO status required?: Yes AMADNA CAMP MD Jan 02, 2020 12:01
[2020-01-02] MEDS ORDERED: BISACODYL 10 MG SUPP.RECT. PR PRN (14:30)
[2020-01-02] MEDS ORDERED: BISACODYL 10 MG SUPP.RECT. PR ONE (14:30)
[2020-01-02 15:00] VITALS: BP 178/94
--- NOTE | 2020-01-02 17:06 | PATHOLOGY ---
[facility] Accession Number: [id number] . 01 Material submitted: . appendix - APPENDIX . 01 Clinical history: . Appendicitis . 02 Diagnosis: Appendix, laparoscopic appendectomy: - Acute appendicitis with serosal exudate. (JPM:deja; 01/02/2020) S 01/02/2020 1352 Local . 02 Comment: There is no evidence of malignancy. . 02 Electronically signed: . Chapito Szymanski MD, Pathologist NPI- [id number] . 01 Gross description: . The specimen is received in formalin, labeled "Rafy Zapien, appendix". Received is a vermiform appendix measuring 3.7 cm in length by up to 0.8 cm in diameter. There are two stapled margins present. The serosal surface is dusky orellana-brown in appearance displaying a defect measuring 0.6 cm, which is 0.9 cm from the closest stapled margin. The serosal surface surrounding the defect is inked red. The ang are removed and the new margins are inked as follows: Margin closest to defect-black, opposite margin-blue. Sectioning reveals a dilated lumen filled with shaggy friable material. The specimen is submitted entirely as follows: . A1 black inked margin and entire area of defect A2 blue ink margin A3-A4 remainder of appendix submitted from black inked margin to blue inked margin. . Gross photographs are taken. (CAA; 01/01/2020) QAC/QAC 01/02/2020 1351 Local . 02 Pathologist provided ICD-10: K35.80 . 02 CPT . 843554 Specimen Comment: A courtesy copy of this report has been sent to [phone] Specimen Comment: Report sent to Dr.BRUCE Performed at: [address], [place], [place] [id number] MD David Andersen MD Phone: [phone] Performed at: [address] [id number] MD Chapito Szymanski MD Phone: [phone]
[2020-01-02 19:15] VITALS: BP 163/100
[2020-01-02] MEDS: chlorproMAZINE 12.5 MG in IV DEXTROSE 5% 50 ML IV PRN (21:12)
[2020-01-02 22:18] VITALS: BP 142/86
[2020-01-03] MEDS: PIPERACILLIN/TAZOBACTAM 3.375 GM in IV NORMAL SALINE 50ML 50 ML IV SCH ×4 (00:10→17:54)
[2020-01-03 02:03] VITALS: BP 128/86
[2020-01-03 04:51] LABS: BASO % 0 % (0-3); EOS # 0.2 x10^3/uL (0.0-0.7); EOS % 3 % (0-3); HEMATOCRIT 40.4 % (39.0-53.0); LYMPH # 0.9 x10^3/uL (1.0-4.8); LYMPH % 11 % (24-48); MEAN CORPUSCULAR HEMOGLOBIN 31 pg (25-35); MEAN CORPUSCULAR HGB CONC 35 g/dL (31-37); MEAN CORPUSCULAR VOLUME 88 fL (79-100); MONO # 1.4 x10^3/uL (0.0-1.1); MONO % 16 % (0-9); NEUT # 5.8 x10^3/uL (1.8-7.7); NEUT % 69 % (31-73); PLATELET COUNT 233 x10^3/uL (140-400); RED CELL DISTRIBUTION WIDTH 13.8 % (11.5-14.5); WHITE BLOOD COUNT 8.4 x10^3/uL (4.0-11.0)
[2020-01-03 05:13] LABS: ALBUMIN 2.4 g/dL (3.4-5.0); ALBUMIN/GLOBULIN RATIO 0.7 (1.0-1.7); CALCIUM 7.8 mg/dL (8.5-10.1); CREATININE 0.9 mg/dL (0.7-1.3); GFR 87.6; POTASSIUM 3.6 mmol/L (3.5-5.1); TOTAL BILIRUBIN 1.1 mg/dL (0.2-1.0); TOTAL PROTEIN 5.9 g/dL (6.4-8.2)
[2020-01-03 07:00] VITALS: BP 140/86
--- NOTE | 2020-01-03 07:23 | PDOC ---
Infectious Disease Note Subjective Subjective Feels much better. BM times 2. Hiccups occ Less abdominal pain + drainage from drain Sinus congestion from NGT No fevers/chills/N/V/BM Vital Sign Vital Signs Vital Signs Date Time Temp Pulse Resp B/P (MAP) Pulse Ox O2 Delivery O2 Flow Rate FiO2 01/03/20 02:03 98.7 113 20 128/86 (100) 98 Room Air 98.7 Physical Exam PHYSICAL EXAM GENERAL: Propped up in bed, alert, NAD - looks well HEENT: Pupils equally round and reactive. Oropharynx is pink and moist. No thrush. NECK: Supple. LUNGS: Clear to auscultation. HEART: S1, S2. ABDOMEN: Obese, less distended but softer, Not as tender, hypoactive bowel sounds. HEMA intact - serous drainage - NGT EXTREMITIES: No gross edema or cyanosis. DERMATOLOGIC: Warm to touch without signs of rash. NEUROLOGIC: Alert and answering questions appropriately. PIV Labs Lab Laboratory Tests Test 01/03/20 03:34 White Blood Count 8.4 x10^3/uL (4.0-11.0) Red Blood Count 4.60 x10^6/uL (4.30-5.70) Hemoglobin 14.0 g/dL (13.0-17.5) Hematocrit 40.4 % (39.0-53.0) Mean Corpuscular Volume 88 fL (79-100) Mean Corpuscular Hemoglobin 31 pg (25-35) Mean Corpuscular Hemoglobin Concent 35 g/dL (31-37) Red Cell Distribution Width 13.8 % (11.5-14.5) Platelet Count 233 x10^3/uL (140-400) Neutrophils (%) (Auto) 69 % (31-73) Lymphocytes (%) (Auto) 11 % (24-48) Monocytes (%) (Auto) 16 % (0-9) Eosinophils (%) (Auto) 3 % (0-3) Basophils (%) (Auto) 0 % (0-3) Neutrophils # (Auto) 5.8 x10^3/uL (1.8-7.7) Lymphocytes # (Auto) 0.9 x10^3/uL (1.0-4.8) Monocytes # (Auto) 1.4 x10^3/uL (0.0-1.1) Eosinophils # (Auto) 0.2 x10^3/uL (0.0-0.7) Basophils # (Auto) 0.0 x10^3/uL (0.0-0.2) Sodium Level 135 mmol/L (136-145) Potassium Level 3.6 mmol/L (3.5-5.1) Chloride Level 101 mmol/L (98-107) Carbon Dioxide Level 21 mmol/L (21-32) Anion Gap 13 (6-14) Blood Urea Nitrogen 21 mg/dL (8-26) Creatinine 0.9 mg/dL (0.7-1.3) Estimated GFR (Cockcroft-Gault) 87.6 BUN/Creatinine Ratio 23 (6-20) Glucose Level 144 mg/dL (70-99) Calcium Level 7.8 mg/dL (8.5-10.1) Total Bilirubin 1.1 mg/dL (0.2-1.0) Aspartate Amino Transf (AST/SGOT) 50 U/L (15-37) Alanine Aminotransferase (ALT/SGPT) 101 U/L (16-63) Alkaline Phosphatase 86 U/L (46-116) Total Protein 5.9 g/dL (6.4-8.2) Albumin 2.4 g/dL (3.4-5.0) Albumin/Globulin Ratio 0.7 (1.0-1.7) Micro CT 12/30 Impression: New distal small bowel obstruction. Objective Assessment Gangrenous appendicitis s/p laparoscopic appendectomy, 12/28 Leukocytosis - better. in part reactive steroids and surgery, -clinically looks much and feels better Tachycardia - Card following - ? reactive Transamitis - clinimax SBO - on CT 12/30 - hopefully improving with + BM - had a suppository Hypertension Hyperglycemia Abdominal pain - better Plan Plan of Care Continue Zosyn plan to wean between 7 and 10 days post surgery if stable Labs in am s/p dexamethasone, 12/28 s/p flu vaccine, Monitor drain output Supportive care Await gen surg f/u labs in am D/w nursing YAKOV NAIDU MD Jan 03, 2020 07:23
--- NOTE | 2020-01-03 08:57 | PDOC ---
G I PROGRESS NOTE Subjective Had a couple of stools after Ducolax supp. Objective Still high NG output. Physical Exam Lungs clear. RRR Abdomen distended, maybe some softer. Review of Relevant I have reviewed the following items eileen (where applicable) has been applied. Labs Laboratory Tests Test 01/01/20 13:35 01/03/20 03:34 Sodium Level 134 mmol/L (136-145) 135 mmol/L (136-145) Potassium Level 4.2 mmol/L (3.5-5.1) 3.6 mmol/L (3.5-5.1) Chloride Level 102 mmol/L (98-107) 101 mmol/L (98-107) Carbon Dioxide Level 23 mmol/L (21-32) 21 mmol/L (21-32) Anion Gap 9 (6-14) 13 (6-14) Blood Urea Nitrogen 23 mg/dL (8-26) 21 mg/dL (8-26) Creatinine 1.1 mg/dL (0.7-1.3) 0.9 mg/dL (0.7-1.3) Estimated GFR (Cockcroft-Gault) 69.5 87.6 Glucose Level 99 mg/dL (70-99) 144 mg/dL (70-99) Calcium Level 8.1 mg/dL (8.5-10.1) 7.8 mg/dL (8.5-10.1) Magnesium Level 2.2 mg/dL (1.8-2.4) White Blood Count 8.4 x10^3/uL (4.0-11.0) Red Blood Count 4.60 x10^6/uL (4.30-5.70) Hemoglobin 14.0 g/dL (13.0-17.5) Hematocrit 40.4 % (39.0-53.0) Mean Corpuscular Volume 88 fL (79-100) Mean Corpuscular Hemoglobin 31 pg (25-35) Mean Corpuscular Hemoglobin Concent 35 g/dL (31-37) Red Cell Distribution Width 13.8 % (11.5-14.5) Platelet Count 233 x10^3/uL (140-400) Neutrophils (%) (Auto) 69 % (31-73) Lymphocytes (%) (Auto) 11 % (24-48) Monocytes (%) (Auto) 16 % (0-9) Eosinophils (%) (Auto) 3 % (0-3) Basophils (%) (Auto) 0 % (0-3) Neutrophils # (Auto) 5.8 x10^3/uL (1.8-7.7) Lymphocytes # (Auto) 0.9 x10^3/uL (1.0-4.8) Monocytes # (Auto) 1.4 x10^3/uL (0.0-1.1) Eosinophils # (Auto) 0.2 x10^3/uL (0.0-0.7) Basophils # (Auto) 0.0 x10^3/uL (0.0-0.2) BUN/Creatinine Ratio 23 (6-20) Total Bilirubin 1.1 mg/dL (0.2-1.0) Aspartate Amino Transf (AST/SGOT) 50 U/L (15-37) Alanine Aminotransferase (ALT/SGPT) 101 U/L (16-63) Alkaline Phosphatase 86 U/L (46-116) Total Protein 5.9 g/dL (6.4-8.2) Albumin 2.4 g/dL (3.4-5.0) Albumin/Globulin Ratio 0.7 (1.0-1.7) Laboratory Tests Test 01/03/20 03:34 White Blood Count 8.4 x10^3/uL (4.0-11.0) Red Blood Count 4.60 x10^6/uL (4.30-5.70) Hemoglobin 14.0 g/dL (13.0-17.5) Hematocrit 40.4 % (39.0-53.0) Mean Corpuscular Volume 88 fL (79-100) Mean Corpuscular Hemoglobin 31 pg (25-35) Mean Corpuscular Hemoglobin Concent 35 g/dL (31-37) Red Cell Distribution Width 13.8 % (11.5-14.5) Platelet Count 233 x10^3/uL (140-400) Neutrophils (%) (Auto) 69 % (31-73) Lymphocytes (%) (Auto) 11 % (24-48) Monocytes (%) (Auto) 16 % (0-9) Eosinophils (%) (Auto) 3 % (0-3) Basophils (%) (Auto) 0 % (0-3) Neutrophils # (Auto) 5.8 x10^3/uL (1.8-7.7) Lymphocytes # (Auto) 0.9 x10^3/uL (1.0-4.8) Monocytes # (Auto) 1.4 x10^3/uL (0.0-1.1) Eosinophils # (Auto) 0.2 x10^3/uL (0.0-0.7) Basophils # (Auto) 0.0 x10^3/uL (0.0-0.2) Sodium Level 135 mmol/L (136-145) Potassium Level 3.6 mmol/L (3.5-5.1) Chloride Level 101 mmol/L (98-107) Carbon Dioxide Level 21 mmol/L (21-32) Anion Gap 13 (6-14) Blood Urea Nitrogen 21 mg/dL (8-26) Creatinine 0.9 mg/dL (0.7-1.3) Estimated GFR (Cockcroft-Gault) 87.6 BUN/Creatinine Ratio 23 (6-20) Glucose Level 144 mg/dL (70-99) Calcium Level 7.8 mg/dL (8.5-10.1) Total Bilirubin 1.1 mg/dL (0.2-1.0) Aspartate Amino Transf (AST/SGOT) 50 U/L (15-37) Alanine Aminotransferase (ALT/SGPT) 101 U/L (16-63) Alkaline Phosphatase 86 U/L (46-116) Total Protein 5.9 g/dL (6.4-8.2) Albumin 2.4 g/dL (3.4-5.0) Albumin/Globulin Ratio 0.7 (1.0-1.7) Vitals/I & O Vital Sign - Last 24 Hours 01/02/20 01/02/20 01/02/20 01/02/20 11:00 15:00 19:15 20:00 Temp 98.0 97.1 97.6 98.0 97.1 97.6 Pulse 96 82 119 Resp 18 18 20 B/P (MAP) 161/99 (119) 178/94 (122) 163/100 (121) Pulse Ox 96 97 98 O2 Delivery Room Air Room Air Room Air Room Air 01/02/20 01/03/20 01/03/20 22:18 02:03 07:00 Temp 97.9 98.7 97.5 97.9 98.7 97.5 Pulse 120 113 103 Resp 18 20 18 B/P (MAP) 142/86 (104) 128/86 (100) 140/86 (104) Pulse Ox 97 98 95 O2 Delivery Room Air Room Air Room Air Intake and Output 01/02/20 01/02/20 01/03/20 15:00 23:00 07:00 Intake Total 100 ml 50 ml 1700 ml Output Total 1070 ml 940 ml 1300 ml Balance -970 ml -890 ml 400 ml Assessment SBO, unclearly better. Plan of Care Note Continue as now and observe. Hemodynamically unstable?: No Is patient in severe pain?: No Is NPO status required?: Yes YARIEL GRANGER MD Jan 03, 2020 08:57
[2020-01-03] MEDS: AA 4.25 %/CALCIUM/LYTES/D5W 1,000 ML IV SCH ×2 (09:03→22:12)
[2020-01-03] MEDS: PANTOPRAZOLE IV PUSH 40 MG VIAL. IVP SCH (09:04)
[2020-01-03] MEDS: ENOXAPARIN 40 MG/0.4 ML SYRINGE. SQ SCH (09:05)
--- NOTE | 2020-01-03 10:16 | PDOC ---
SURGICAL PROGRESS NOTE Subjective feels better had two large stools Vital Signs Vital Signs Date Time Temp Pulse Resp B/P (MAP) Pulse Ox O2 Delivery O2 Flow Rate FiO2 01/03/20 08:00 Room Air 01/03/20 07:00 97.5 103 18 140/86 (104) 95 97.5 I&O Intake and Output 01/03/20 06:59 Intake Total 1850 ml Output Total 3310 ml Balance -1460 ml Intake Oral 420 ml IV Total 1430 ml Output Urine Total 1500 ml Gastric Drainage Total 1550 ml Drainage Total 260 ml # Bowel Movements 2 PATIENT HAS A PIZANO: No General: Alert, Oriented X3, No acute distress HEENT: Other (NG off suction right now) Abdomen: Soft Labs Laboratory Tests Test 01/01/20 13:35 01/03/20 03:34 Sodium Level 134 mmol/L (136-145) 135 mmol/L (136-145) Potassium Level 4.2 mmol/L (3.5-5.1) 3.6 mmol/L (3.5-5.1) Chloride Level 102 mmol/L (98-107) 101 mmol/L (98-107) Carbon Dioxide Level 23 mmol/L (21-32) 21 mmol/L (21-32) Anion Gap 9 (6-14) 13 (6-14) Blood Urea Nitrogen 23 mg/dL (8-26) 21 mg/dL (8-26) Creatinine 1.1 mg/dL (0.7-1.3) 0.9 mg/dL (0.7-1.3) Estimated GFR (Cockcroft-Gault) 69.5 87.6 Glucose Level 99 mg/dL (70-99) 144 mg/dL (70-99) Calcium Level 8.1 mg/dL (8.5-10.1) 7.8 mg/dL (8.5-10.1) Magnesium Level 2.2 mg/dL (1.8-2.4) White Blood Count 8.4 x10^3/uL (4.0-11.0) Red Blood Count 4.60 x10^6/uL (4.30-5.70) Hemoglobin 14.0 g/dL (13.0-17.5) Hematocrit 40.4 % (39.0-53.0) Mean Corpuscular Volume 88 fL (79-100) Mean Corpuscular Hemoglobin 31 pg (25-35) Mean Corpuscular Hemoglobin Concent 35 g/dL (31-37) Red Cell Distribution Width 13.8 % (11.5-14.5) Platelet Count 233 x10^3/uL (140-400) Neutrophils (%) (Auto) 69 % (31-73) Lymphocytes (%) (Auto) 11 % (24-48) Monocytes (%) (Auto) 16 % (0-9) Eosinophils (%) (Auto) 3 % (0-3) Basophils (%) (Auto) 0 % (0-3) Neutrophils # (Auto) 5.8 x10^3/uL (1.8-7.7) Lymphocytes # (Auto) 0.9 x10^3/uL (1.0-4.8) Monocytes # (Auto) 1.4 x10^3/uL (0.0-1.1) Eosinophils # (Auto) 0.2 x10^3/uL (0.0-0.7) Basophils # (Auto) 0.0 x10^3/uL (0.0-0.2) BUN/Creatinine Ratio 23 (6-20) Total Bilirubin 1.1 mg/dL (0.2-1.0) Aspartate Amino Transf (AST/SGOT) 50 U/L (15-37) Alanine Aminotransferase (ALT/SGPT) 101 U/L (16-63) Alkaline Phosphatase 86 U/L (46-116) Total Protein 5.9 g/dL (6.4-8.2) Albumin 2.4 g/dL (3.4-5.0) Albumin/Globulin Ratio 0.7 (1.0-1.7) Laboratory Tests Test 01/03/20 03:34 White Blood Count 8.4 x10^3/uL (4.0-11.0) Red Blood Count 4.60 x10^6/uL (4.30-5.70) Hemoglobin 14.0 g/dL (13.0-17.5) Hematocrit 40.4 % (39.0-53.0) Mean Corpuscular Volume 88 fL (79-100) Mean Corpuscular Hemoglobin 31 pg (25-35) Mean Corpuscular Hemoglobin Concent 35 g/dL (31-37) Red Cell Distribution Width 13.8 % (11.5-14.5) Platelet Count 233 x10^3/uL (140-400) Neutrophils (%) (Auto) 69 % (31-73) Lymphocytes (%) (Auto) 11 % (24-48) Monocytes (%) (Auto) 16 % (0-9) Eosinophils (%) (Auto) 3 % (0-3) Basophils (%) (Auto) 0 % (0-3) Neutrophils # (Auto) 5.8 x10^3/uL (1.8-7.7) Lymphocytes # (Auto) 0.9 x10^3/uL (1.0-4.8) Monocytes # (Auto) 1.4 x10^3/uL (0.0-1.1) Eosinophils # (Auto) 0.2 x10^3/uL (0.0-0.7) Basophils # (Auto) 0.0 x10^3/uL (0.0-0.2) Sodium Level 135 mmol/L (136-145) Potassium Level 3.6 mmol/L (3.5-5.1) Chloride Level 101 mmol/L (98-107) Carbon Dioxide Level 21 mmol/L (21-32) Anion Gap 13 (6-14) Blood Urea Nitrogen 21 mg/dL (8-26) Creatinine 0.9 mg/dL (0.7-1.3) Estimated GFR (Cockcroft-Gault) 87.6 BUN/Creatinine Ratio 23 (6-20) Glucose Level 144 mg/dL (70-99) Calcium Level 7.8 mg/dL (8.5-10.1) Total Bilirubin 1.1 mg/dL (0.2-1.0) Aspartate Amino Transf (AST/SGOT) 50 U/L (15-37) Alanine Aminotransferase (ALT/SGPT) 101 U/L (16-63) Alkaline Phosphatase 86 U/L (46-116) Total Protein 5.9 g/dL (6.4-8.2) Albumin 2.4 g/dL (3.4-5.0) Albumin/Globulin Ratio 0.7 (1.0-1.7) Assessment/Plan POD 6 l/s appendectomy NG trial if removed today, start clear liquids ALICE BARRERA MD Jan 03, 2020 10:16
--- NOTE | 2020-01-03 10:42 | PDOC ---
PROGRESS NOTES Chief Complaint Chief Complaint impression Acute appendicitis./Gangrenous appendicitis. VOMITING, DISTENDED Abnormal bowel gas pattern suggesting a distal small bowel obstruction versus left-sided colitis. Arrhythmia: brief episodes of x2 NSVT otherwise reactive sinus tachycardia. 3/2 pm pod # 6 3/5 , 2 large stools last 24 hrs 3/4 New distal small bowel obstruction. 36 min pt exam, chart review, > 50% of time spent with exam, chart review, pt care coordination History of Present Illness History of Present Illness Mr Zapien is a 54 yo M who developed acute onset of abdominal pain after working an evening shift at a [employer]. Pain shifted to the right lower quadrant area associated with nausea, vomiting and chills. A CT abdomen/pelvis showed a showed a distended appendix with moderate periappendiceal inflammatory change. had laparoscopic appendectomy and placement of a 19-[place] Javy drain on . The appendix was gangrenous and friable without obvious periappendiceal abscess. Developed SBO, NGT placed. To CT 12/30 Vitals Vitals Vital Signs Date Time Temp Pulse Resp B/P (MAP) Pulse Ox O2 Delivery O2 Flow Rate FiO2 01/03/20 08:00 Room Air 01/03/20 07:00 97.5 103 18 140/86 (104) 95 97.5 Physical Exam Physical Exam GENERAL: Propped up in bed, alert, NAD - looks well HEENT: Pupils equally round and reactive. Oropharynx is pink and moist. No thrush. NECK: Supple. LUNGS: Clear to auscultation. HEART: S1, S2. ABDOMEN: Obese, less distended but softer, Not as tender, hypoactive bowel sounds. HEMA intact - serous drainage - NGT EXTREMITIES: No gross edema or cyanosis. DERMATOLOGIC: Warm to touch without signs of rash. NEUROLOGIC: Alert and answering questions appropriately. PIV General: Alert, Oriented X3, No acute distress Heart: Regular rate, Normal S1, Normal S2, Other (heart tones regular, tachycardic. Not on tele) Lungs: Clear Abdomen: Soft, No tenderness, No masses Extremities: No edema, Normal pulses, No tenderness/swelling Skin: No significant lesion Labs LABS Laboratory Tests Test 01/03/20 03:34 White Blood Count 8.4 x10^3/uL (4.0-11.0) Red Blood Count 4.60 x10^6/uL (4.30-5.70) Hemoglobin 14.0 g/dL (13.0-17.5) Hematocrit 40.4 % (39.0-53.0) Mean Corpuscular Volume 88 fL (79-100) Mean Corpuscular Hemoglobin 31 pg (25-35) Mean Corpuscular Hemoglobin Concent 35 g/dL (31-37) Red Cell Distribution Width 13.8 % (11.5-14.5) Platelet Count 233 x10^3/uL (140-400) Neutrophils (%) (Auto) 69 % (31-73) Lymphocytes (%) (Auto) 11 % (24-48) Monocytes (%) (Auto) 16 % (0-9) Eosinophils (%) (Auto) 3 % (0-3) Basophils (%) (Auto) 0 % (0-3) Neutrophils # (Auto) 5.8 x10^3/uL (1.8-7.7) Lymphocytes # (Auto) 0.9 x10^3/uL (1.0-4.8) Monocytes # (Auto) 1.4 x10^3/uL (0.0-1.1) Eosinophils # (Auto) 0.2 x10^3/uL (0.0-0.7) Basophils # (Auto) 0.0 x10^3/uL (0.0-0.2) Sodium Level 135 mmol/L (136-145) Potassium Level 3.6 mmol/L (3.5-5.1) Chloride Level 101 mmol/L (98-107) Carbon Dioxide Level 21 mmol/L (21-32) Anion Gap 13 (6-14) Blood Urea Nitrogen 21 mg/dL (8-26) Creatinine 0.9 mg/dL (0.7-1.3) Estimated GFR (Cockcroft-Gault) 87.6 BUN/Creatinine Ratio 23 (6-20) Glucose Level 144 mg/dL (70-99) Calcium Level 7.8 mg/dL (8.5-10.1) Total Bilirubin 1.1 mg/dL (0.2-1.0) Aspartate Amino Transf (AST/SGOT) 50 U/L (15-37) Alanine Aminotransferase (ALT/SGPT) 101 U/L (16-63) Alkaline Phosphatase 86 U/L (46-116) Total Protein 5.9 g/dL (6.4-8.2) Albumin 2.4 g/dL (3.4-5.0) Albumin/Globulin Ratio 0.7 (1.0-1.7) Comment Review of Relevant I have reviewed the following items eileen (where applicable) has been applied. Labs Laboratory Tests Test 01/01/20 13:35 01/03/20 03:34 Sodium Level 134 mmol/L (136-145) 135 mmol/L (136-145) Potassium Level 4.2 mmol/L (3.5-5.1) 3.6 mmol/L (3.5-5.1) Chloride Level 102 mmol/L (98-107) 101 mmol/L (98-107) Carbon Dioxide Level 23 mmol/L (21-32) 21 mmol/L (21-32) Anion Gap 9 (6-14) 13 (6-14) Blood Urea Nitrogen 23 mg/dL (8-26) 21 mg/dL (8-26) Creatinine 1.1 mg/dL (0.7-1.3) 0.9 mg/dL (0.7-1.3) Estimated GFR (Cockcroft-Gault) 69.5 87.6 Glucose Level 99 mg/dL (70-99) 144 mg/dL (70-99) Calcium Level 8.1 mg/dL (8.5-10.1) 7.8 mg/dL (8.5-10.1) Magnesium Level 2.2 mg/dL (1.8-2.4) White Blood Count 8.4 x10^3/uL (4.0-11.0) Red Blood Count 4.60 x10^6/uL (4.30-5.70) Hemoglobin 14.0 g/dL (13.0-17.5) Hematocrit 40.4 % (39.0-53.0) Mean Corpuscular Volume 88 fL (79-100) Mean Corpuscular Hemoglobin 31 pg (25-35) Mean Corpuscular Hemoglobin Concent 35 g/dL (31-37) Red Cell Distribution Width 13.8 % (11.5-14.5) Platelet Count 233 x10^3/uL (140-400) Neutrophils (%) (Auto) 69 % (31-73) Lymphocytes (%) (Auto) 11 % (24-48) Monocytes (%) (Auto) 16 % (0-9) Eosinophils (%) (Auto) 3 % (0-3) Basophils (%) (Auto) 0 % (0-3) Neutrophils # (Auto) 5.8 x10^3/uL (1.8-7.7) Lymphocytes # (Auto) 0.9 x10^3/uL (1.0-4.8) Monocytes # (Auto) 1.4 x10^3/uL (0.0-1.1) Eosinophils # (Auto) 0.2 x10^3/uL (0.0-0.7) Basophils # (Auto) 0.0 x10^3/uL (0.0-0.2) BUN/Creatinine Ratio 23 (6-20) Total Bilirubin 1.1 mg/dL (0.2-1.0) Aspartate Amino Transf (AST/SGOT) 50 U/L (15-37) Alanine Aminotransferase (ALT/SGPT) 101 U/L (16-63) Alkaline Phosphatase 86 U/L (46-116) Total Protein 5.9 g/dL (6.4-8.2) Albumin 2.4 g/dL (3.4-5.0) Albumin/Globulin Ratio 0.7 (1.0-1.7) Laboratory Tests Test 01/03/20 03:34 White Blood Count 8.4 x10^3/uL (4.0-11.0) Red Blood Count 4.60 x10^6/uL (4.30-5.70) Hemoglobin 14.0 g/dL (13.0-17.5) Hematocrit 40.4 % (39.0-53.0) Mean Corpuscular Volume 88 fL (79-100) Mean Corpuscular Hemoglobin 31 pg (25-35) Mean Corpuscular Hemoglobin Concent 35 g/dL (31-37) Red Cell Distribution Width 13.8 % (11.5-14.5) Platelet Count 233 x10^3/uL (140-400) Neutrophils (%) (Auto) 69 % (31-73) Lymphocytes (%) (Auto) 11 % (24-48) Monocytes (%) (Auto) 16 % (0-9) Eosinophils (%) (Auto) 3 % (0-3) Basophils (%) (Auto) 0 % (0-3) Neutrophils # (Auto) 5.8 x10^3/uL (1.8-7.7) Lymphocytes # (Auto) 0.9 x10^3/uL (1.0-4.8) Monocytes # (Auto) 1.4 x10^3/uL (0.0-1.1) Eosinophils # (Auto) 0.2 x10^3/uL (0.0-0.7) Basophils # (Auto) 0.0 x10^3/uL (0.0-0.2) Sodium Level 135 mmol/L (136-145) Potassium Level 3.6 mmol/L (3.5-5.1) Chloride Level 101 mmol/L (98-107) Carbon Dioxide Level 21 mmol/L (21-32) Anion Gap 13 (6-14) Blood Urea Nitrogen 21 mg/dL (8-26) Creatinine 0.9 mg/dL (0.7-1.3) Estimated GFR (Cockcroft-Gault) 87.6 BUN/Creatinine Ratio 23 (6-20) Glucose Level 144 mg/dL (70-99) Calcium Level 7.8 mg/dL (8.5-10.1) Total Bilirubin 1.1 mg/dL (0.2-1.0) Aspartate Amino Transf (AST/SGOT) 50 U/L (15-37) Alanine Aminotransferase (ALT/SGPT) 101 U/L (16-63) Alkaline Phosphatase 86 U/L (46-116) Total Protein 5.9 g/dL (6.4-8.2) Albumin 2.4 g/dL (3.4-5.0) Albumin/Globulin Ratio 0.7 (1.0-1.7) Medications Current Medications Sevoflurane (Ultane) 60 ml STK-MED ONCE IH ; Start 12/28/19 at 17:29; Stop 12/28/19 at 17:30; Status DC Midazolam HCl (Versed) 2 mg STK-MED ONCE .ROUTE ; Start 12/28/19 at 17:30; Stop 12/28/19 at 17:30; Status DC Fentanyl Citrate (Fentanyl 2ml Vial) 100 mcg STK-MED ONCE .ROUTE ; Start 12/28/19 at 17:30; Stop 12/28/19 at 17:30; Status DC Glycopyrrolate (Robinul) 1 mg STK-MED ONCE .ROUTE ; Start 12/28/19 at 17:30; Stop 12/28/19 at 17:31; Status DC Neostigmine [place] (Neostigmine Methylsulfate) 5 mg STK-MED ONCE .ROUTE ; Start 12/28/19 at 17:30; Stop 12/28/19 at 17:31; Status DC Rocuronium [place] (Zemuron) 50 mg STK-MED ONCE .ROUTE ; Start 12/28/19 at 17:30; Stop 12/28/19 at 17:31; Status DC Succinylcholine Chloride (Anectine) 200 mg STK-MED ONCE .ROUTE ; Start 12/28/19 at 17:30; Stop 12/28/19 at 17:31; Status DC Dexamethasone Sodium Phosphate (Decadron) 4 mg STK-MED ONCE .ROUTE ; Start 12/28/19 at 17:31; Stop 12/28/19 at 17:31; Status DC Ondansetron HCl (Zofran) 4 mg STK-MED ONCE .ROUTE ; Start 12/28/19 at 17:31; Stop 12/28/19 at 17:31; Status DC Ketorolac Tromethamine (Toradol 30mg Vial) 30 mg STK-MED ONCE .ROUTE ; Start 12/28/19 at 17:31; Stop 12/28/19 at 17:31; Status DC Lidocaine HCl (Lidocaine Pf 2% Vial) 5 ml STK-MED ONCE .ROUTE ; Start 12/28/19 at 17:31; Stop 12/28/19 at 17:31; Status DC Propofol 20 ml @ As Directed STK-MED ONCE IV ; Start 12/28/19 at 17:31; Stop 12/28/19 at 17:31; Status DC Metronidazole 100 ml @ 100 mls/hr 1X PREOP PRN IV PER PROTOCOL Last administered on 12/28/19at 17:37; Start 12/28/19 at 17:45; Stop 12/29/19 at 18:45; Status DC Bupivacaine HCl/ Epinephrine Bitart (Sensorcain-Epi 0.5%-1:862992 Mpf) 30 ml STK-MED ONCE .ROUTE Last administered on 12/28/19at 18:11; Start 12/28/19 at 17:34; Stop 12/28/19 at 17:34; Status DC Metronidazole 100 ml @ As Directed STK-MED ONCE IV ; Start 12/28/19 at 17:36; Stop 12/28/19 at 17:36; Status DC Metronidazole 100 ml @ 100 mls/hr 1X ONCE IV ; Start 12/28/19 at 17:45; Stop 12/28/19 at 18:44; Status DC Ondansetron HCl (Zofran) 4 mg PRN Q6HRS PRN IV NAUSEA/VOMITING; Start 12/28/19 at 18:00; Stop 12/29/19 at 17:59; Status DC Fentanyl Citrate (Fentanyl 2ml Vial) 25 mcg PRN Q5MIN PRN IV MILD PAIN 1-3; Start 12/28/19 at 18:00; Stop 12/29/19 at 17:59; Status DC Fentanyl Citrate (Fentanyl 2ml Vial) 50 mcg PRN Q5MIN PRN IV MODERATE TO SEVERE PAIN; Start 12/28/19 at 18:00; Stop 12/29/19 at 17:59; Status DC Morphine Sulfate (Morphine Sulfate) 1 mg PRN Q10MIN PRN IV SEVERE PAIN 7-10; Start 12/28/19 at 18:00; Stop 12/29/19 at 17:59; Status DC Ringer's Solution 1,000 ml @ 30 mls/hr Q24H IV Last administered on 12/28/19at 19:43; Start 12/28/19 at 17:50; Stop 12/29/19 at 05:49; Status DC Lidocaine HCl (Xylocaine-Mpf 1% 2ml Vial) 2 ml PRN 1X PRN ID PRIOR TO IV START; Start 12/28/19 at 18:00; Stop 12/29/19 at 17:59; Status DC Hydromorphone HCl (Dilaudid) 0.5 mg PRN Q10MIN PRN IV SEV PAIN, Second choice; Start 12/28/19 at 18:00; Stop 12/29/19 at 17:59; Status DC Prochlorperazine Edisylate (Compazine) 5 mg PACU PRN PRN IV NAUSEA, MRX1; S tart 12/28/19 at 18:00; Stop 12/29/19 at 17:59; Status UNV Enoxaparin Sodium (Lovenox 40mg Syringe) 40 mg DAILY SQ Last administered on 01/03/20at 09:05; Start 12/29/19 at 09:00 Sodium Chloride (Normal Saline Flush) 3 ml QSHIFT PRN IV AFTER MEDS AND BLOOD DRAWS; Start 12/28/19 at 19:15 Potassium Chloride/Sodium Chloride 1,000 ml @ 75 mls/hr [id number] IV Last administered on 01/01/20at 08:33; Start 12/28/19 at 20:00; Stop 01/01/20 at 15:08; Status DC Dextrose (Dextrose 50%-Water Syringe) 12.5 gm PRN Q15MIN PRN IV SEE COMMENTS; Start 12/28/19 at 19:15 Oxycodone/ Acetaminophen (Percocet 5/325) 1 tab PRN Q4HRS PRN PO MILD PAIN, 1ST CHOICE Last administered on 12/29/19at 09:19; Start 12/28/19 at 19:15 Oxycodone/ Acetaminophen (Percocet 5/325) 2 tab PRN Q4HRS PRN PO MODERATE PAIN, SEVERE PAIN Last administered on 12/29/19at 18:14; Start 12/28/19 at 19:15 Naloxone HCl (Narcan) 0.4 mg PRN Q2MIN PRN IV SEE INSTRUCTIONS; Start 12/28/19 at 19:15 Sodium Chloride 1,000 ml @ 25 mls/hr Q24H IV ; Start 12/28/19 at 19:13; Stop 01/01/20 at 15:08; Status DC Hydromorphone HCl (Dilaudid) 1 mg PRN Q4HRS PRN IV SEVERE PAIN 7-10; Start 12/28/19 at 19:15; Status Cancel Docusate Sodium (Colace) 100 mg BID PO Last administered on 12/30/19at 08:30; Start 12/28/19 at 21:00; Stop 01/01/20 at 07:59; Status DC Ondansetron HCl (Zofran) 4 mg PRN Q6HRS PRN IVP NAUESA, 1ST CHOICE; Start 12/28/19 at 19:15 Cefazolin Sodium/ Dextrose 50 ml @ 100 mls/hr Q8HRS IV Last administered on 12/29/19at 14:19; Start 12/28/19 at 22:00; Stop 12/29/19 at 14:24; Status DC Metronidazole 100 ml @ 100 mls/hr Q12HR IV Last administered on 12/29/19at 09:18; Start 12/28/19 at 21:00; Stop 12/29/19 at 14:24; Status DC Info (FLU VACCINE SCREEN per RX) 1 each PRN 1X PRN MC SEE COMMENTS; Start 12/29/19 at 04:30; Status UNV Influenza Virus Vaccine Quadrival (Afluria Quad 2019-20 (3yr Up) Syringe) 0.5 ml ONCE ONCE VAX IM Last administered on 12/29/19at 09:21; Start 12/29/19 at 09:00; Stop 12/29/19 at 09:01; Status DC Piperacillin Sod/ Tazobactam Sod 3.375 gm/Sodium Chloride 50 ml @ 100 mls/hr Q6HRS IV Last administered on 01/03/20at 05:51; Start 12/29/19 at 18:00 Bismuth Subsalicylate (Pepto-Bismol) 786 mg PRN Q3HRS PRN PO DIARRHEA Last administered on 12/29/19at 22:33; Start 12/29/19 at 22:30 Lisinopril (Prinivil) 5 mg 1X ONCE PO Last administered on 12/30/19at 01:26; Start 12/30/19 at 01:30; Stop 12/30/19 at 01:31; Status DC Benzocaine (Hurricaine One) 1 spray 1X ONCE MM Last administered on 12/30/19at 12:30; Start 12/30/19 at 12:30; Stop 12/30/19 at 12:31; Status DC Lidocaine HCl (Glydo (Lidocaine) Jelly) 2 kenny 1X ONCE MM Last administered on 12/30/19at 12:30; Start 12/30/19 at 12:30; Stop 12/30/19 at 12:31; Status DC Throat Lozenges (Cepacol Sore Throat Lozenge) 1 maria g PRN Q2HRS PRN PO SORE THROAT; Start 12/30/19 at 15:00 Phenol (Chloraseptic) 1 spray PRN Q2HR PRN PO SORE THROAT- 2ND CHOICE; Start 12/30/19 at 15:00 Hydromorphone HCl (Dilaudid) 1 mg PRN Q4HRS PRN IV pain; Start 12/30/19 at 15:00 Pantoprazole Sodium (PROTONIX VIAL for IV PUSH) 40 mg DAILYAC IVP Last adminis tered on 01/03/20at 09:04; Start 12/30/19 at 23:00 Enalaprilat (Vasotec Inj) 1.25 mg Q6HRS IVP Last administered on 12/30/19at 20:45 ; Start 12/30/19 at 21:00; Stop 12/30/19 at 23:15; Status DC Chlorpromazine HCl 12.5 mg/ Dextrose 50.5 ml @ 100 mls/hr PRN Q8HRS PRN IV HICCUPS Last administered on 01/02/20at 21:12; Start 12/30/19 at 20:30 Sodium Chloride 500 ml @ 500 mls/hr 1X ONCE IV Last administered on 12/30/19at 23:47; Start 12/30/19 at 23:30; Stop 12/31/19 at 00:29; Status DC Vancomycin HCl 1 gm/Sodium Chloride 250 ml @ 250 mls/hr Q12H IV ; Start 12/30/19 at 23:15; Status UNV Vancomycin HCl 2 gm/Sodium Chloride 500 ml @ 250 mls/hr 1X ONCE IV Last administered on 12/30/19at 23:47; Start 12/30/19 at 23:30; Stop 12/31/19 at 01:29; Status DC Vancomycin HCl 1.25 gm/Sodium Chloride 250 ml @ 167 mls/hr Q12H IV Last administered on 12/31/19at 13:17; Start 12/31/19 at 12:00; Stop 12/31/19 at 13:57; Status DC Vancomycin HCl (Vancomycin Trough Level) 1 each 1X ONCE MC ; Start 01/01/20 at 11:30; Stop 12/31/19 at 13:58; Status DC Vancomycin HCl (Vanco Per Pharmacy) 1 each PRN DAILY PRN MC SEE COMMENTS Last administered on 12/31/19at 02:17; Start 12/30/19 at 23:15; Stop 12/31/19 at 13:57; Status DC Enalaprilat (Vasotec Inj) 1.25 mg PRN Q6HRS PRN IVP SBP >160; Start 12/30/19 at 23:15 Sodium Chloride 1,000 ml @ 75 mls/hr [id number] IV Last administered on 12/31/19at 18:44; Start 12/31/19 at 16:45; Stop 01/01/20 at 15:08; Status DC Docusate Sodium (Colace Solution) 100 mg BID PO Last administered on 01/01/20at 08:32; Start 01/01/20 at 09:00; Stop 01/01/20 at 11:58; Status DC Potassium Chloride/Sodium Chloride 1,000 ml @ 30 mls/hr Q24H IV Last administered on 01/03/20at 09:04; Start 01/01/20 at 15:15 Amino Acids/ Electrolytes/ Dextrose 1,000 ml @ 80 mls/hr [id number] IV Last administered on 01/03/20at 09:03; Start 01/02/20 at 08:00 Bisacodyl (Dulcolax Supp) 10 mg 1X ONCE [place] Last administered on 01/02/20at 14:30; Start 01/02/20 at 14:30; Stop 01/02/20 at 14:31; Status DC Bisacodyl (Dulcolax Supp) 10 mg PRN DAILY PRN [place] CONSTIPATION; Start 01/02/20 at 14:30 Vitals/I & O Vital Sign - Last 24 Hours 01/02/20 01/02/20 01/02/20 01/02/20 11:00 15:00 19:15 20:00 Temp 98.0 97.1 97.6 98.0 97.1 97.6 Pulse 96 82 119 Resp 18 18 20 B/P (MAP) 161/99 (119) 178/94 (122) 163/100 (121) Pulse Ox 96 97 98 O2 Delivery Room Air Room Air Room Air Room Air 01/02/20 01/03/20 01/03/20 01/03/20 22:18 02:03 07:00 08:00 Temp 97.9 98.7 97.5 97.9 98.7 97.5 Pulse 120 113 103 Resp 18 20 18 B/P (MAP) 142/86 (104) 128/86 (100) 140/86 (104) Pulse Ox 97 98 95 O2 Delivery Room Air Room Air Room Air Room Air Intake and Output 01/02/20 01/02/20 01/03/20 14:59 22:59 06:59 Intake Total 100 ml 50 ml 1700 ml Output Total 120 ml 1890 ml 1300 ml Balance -20 ml -1840 ml 400 ml Hemodynamically unstable?: No Is patient in severe pain?: No Is NPO status required?: Yes AMANDA CAMP MD Jan 03, 2020 10:42
--- NOTE | 2020-01-03 11:09 | NUR ---
SS following up with discharge planning. Pt is currently on room air. No PT/OT needs noted at this time. Pt transferring to room 656. SS will continue to follow for discharge planning.
--- NOTE | 2020-01-03 11:39 | PDOC ---
LIANA SAN TOY PAINTER 01/03/20 1139: CARDIO Progress Notes Date and Time Date of Service 01/03/2020 Time of Evaluation 1110 Subjective Subjective: No Chest Pain, No shortness of breath, No Palpitations, Other (surgical pain controlled) Vitals Vitals Vital Signs Date Time Temp Pulse Resp B/P (MAP) Pulse Ox O2 Delivery O2 Flow Rate FiO2 01/03/20 08:00 Room Air 01/03/20 07:00 97.5 103 18 140/86 (104) 95 97.5 Weight Weight [ ] Input and Output Intake and Output Intake and Output 01/03/20 06:59 Intake Total 1850 ml Output Total 3310 ml Balance -1460 ml Intake Oral 420 ml IV Total 1430 ml Output Urine Total 1500 ml Gastric Drainage Total 1550 ml Drainage Total 260 ml # Bowel Movements 2 Laboratory Labs Laboratory Tests Test 01/03/20 03:34 White Blood Count 8.4 x10^3/uL (4.0-11.0) Red Blood Count 4.60 x10^6/uL (4.30-5.70) Hemoglobin 14.0 g/dL (13.0-17.5) Hematocrit 40.4 % (39.0-53.0) Mean Corpuscular Volume 88 fL (79-100) Mean Corpuscular Hemoglobin 31 pg (25-35) Mean Corpuscular Hemoglobin Concent 35 g/dL (31-37) Red Cell Distribution Width 13.8 % (11.5-14.5) Platelet Count 233 x10^3/uL (140-400) Neutrophils (%) (Auto) 69 % (31-73) Lymphocytes (%) (Auto) 11 % (24-48) Monocytes (%) (Auto) 16 % (0-9) Eosinophils (%) (Auto) 3 % (0-3) Basophils (%) (Auto) 0 % (0-3) Neutrophils # (Auto) 5.8 x10^3/uL (1.8-7.7) Lymphocytes # (Auto) 0.9 x10^3/uL (1.0-4.8) Monocytes # (Auto) 1.4 x10^3/uL (0.0-1.1) Eosinophils # (Auto) 0.2 x10^3/uL (0.0-0.7) Basophils # (Auto) 0.0 x10^3/uL (0.0-0.2) Sodium Level 135 mmol/L (136-145) Potassium Level 3.6 mmol/L (3.5-5.1) Chloride Level 101 mmol/L (98-107) Carbon Dioxide Level 21 mmol/L (21-32) Anion Gap 13 (6-14) Blood Urea Nitrogen 21 mg/dL (8-26) Creatinine 0.9 mg/dL (0.7-1.3) Estimated GFR (Cockcroft-Gault) 87.6 BUN/Creatinine Ratio 23 (6-20) Glucose Level 144 mg/dL (70-99) Calcium Level 7.8 mg/dL (8.5-10.1) Total Bilirubin 1.1 mg/dL (0.2-1.0) Aspartate Amino Transf (AST/SGOT) 50 U/L (15-37) Alanine Aminotransferase (ALT/SGPT) 101 U/L (16-63) Alkaline Phosphatase 86 U/L (46-116) Total Protein 5.9 g/dL (6.4-8.2) Albumin 2.4 g/dL (3.4-5.0) Albumin/Globulin Ratio 0.7 (1.0-1.7) Physical Exam HEENT: Neck Supple W Full Motion Chest: Symmetric LUNGS: Other (diminished) Heart: RRR (SR) Abdomen: Other (truncal obesity; NGT; surgical dressing intact no erythema. HEMA to RLQ with serous drain) Extremities: No Edema, No Calf Tenderness Neurology: alert, oriented, follow commands Assessment Assessment 1. Acute appendicitis; s/p lap appendectomy. pain controlled 2. SBO: NGT in place 3. Arrhythmia: brief episodes of x2 NSVT otherwise reactive sinus tachycardia. Presently SR no further ectopies 4. Hypertension; controlled 5. Hyperlipidemia Recommendations 1. Currently NPO. NGT in place. IVF. Pain controlled. Analgesic PRN. 2. Resume home BP meds when PO allowed. Aggresive IS and SCDs. 3. Nothing further cardiac daly DAVID VILLA MD 01/03/20 1700: CARDIO Progress Notes Assessment Assessment Patient seen and examined He is feeling significantly better today. 1. Acute appendicitis; s/p lap appendectomy. pain controlled. NG tube was removed. 2. Arrhythmia: brief episodes of x2 NSVT otherwise reactive sinus tachycardia. Presently SR no further ectopies 3. Hypertension; controlled 4. Hyperlipidemia LIANA SAN APRN Jan 03, 2020 11:39 DAVID VILLA MD Jan 03, 2020 17:00
--- NOTE | 2020-01-03 13:05 | NUR ---
Gastric residual checked at 1250 was 50ml, discontinued NG tube per MD order, will start on clear liquid diet. We will continue to monitor.
[2020-01-03 15:00] VITALS: BP 144/91
[2020-01-03 19:20] VITALS: BP 143/91
[2020-01-03] MEDS: ONDANSETRON PF 4 MG/2 ML VIAL. IVP PRN (20:21)
[2020-01-03] MEDS: chlorproMAZINE 12.5 MG in IV DEXTROSE 5% 50 ML IV PRN (20:47)
[2020-01-03 23:12] VITALS: BP 126/57
[2020-01-04] MEDS: PIPERACILLIN/TAZOBACTAM 3.375 GM in IV NORMAL SALINE 50ML 50 ML IV SCH ×5 (00:39→23:43)
[2020-01-04 03:40] VITALS: BP 107/73
[2020-01-04] MEDS: chlorproMAZINE 12.5 MG in IV DEXTROSE 5% 50 ML IV PRN ×3 (04:36→22:00)
[2020-01-04 07:00] VITALS: BP 131/87
[2020-01-04] MEDS: PANTOPRAZOLE IV PUSH 40 MG VIAL. IVP SCH (08:42)
[2020-01-04] MEDS: ENOXAPARIN 40 MG/0.4 ML SYRINGE. SQ SCH (08:58)
[2020-01-04] MEDS: AA 4.25 %/CALCIUM/LYTES/D5W 1,000 ML IV SCH ×2 (10:46→23:06)
--- NOTE | 2020-01-04 10:47 | PDOC ---
Infectious Disease Note Subjective Subjective Feels much better. BM this am Hiccups occ better with meds - tolerating clears Less abdominal pain + drainage from drain No fevers/chills/N/V/BM Vital Sign Vital Signs Vital Signs Date Time Temp Pulse Resp B/P (MAP) Pulse Ox O2 Delivery O2 Flow Rate FiO2 01/04/20 07:00 98.4 100 16 131/87 (102) 95 Room Air 98.4 Physical Exam PHYSICAL EXAM GENERAL: Propped up in bed, alert, NAD - looks well HEENT: Pupils equally round and reactive. Oropharynx is pink and moist. No thrush. NECK: Supple. LUNGS: Clear to auscultation. HEART: S1, S2. ABDOMEN: Obese, distended , Not as tender, hypoactive bowel sounds. HEMA intact - serous drainage - NGT - out EXTREMITIES: No gross edema or cyanosis. DERMATOLOGIC: Warm to touch without signs of rash. NEUROLOGIC: Alert and answering questions appropriately. PIV Labs Micro CT 12/30 Impression: New distal small bowel obstruction. Objective Assessment Gangrenous appendicitis s/p laparoscopic appendectomy, 12/28 Leukocytosis - better. in part reactive steroids and surgery, -clinically looks much and feels better Tachycardia - Card following - ? reactive Transamitis - clinimax SBO - on CT 12/30 - hopefully improving with + BM - had a suppository Hypertension Hyperglycemia Abdominal pain - better Plan Plan of Care Continue Zosyn plan to wean between 7 and 10 days post surgery if stable Labs in am s/p dexamethasone, 12/28 s/p flu vaccine, Monitor drain output Supportive care Await gen surg f/u D/w nursing YAKOV NAIDU MD Jan 04, 2020 10:47
[2020-01-04 11:00] VITALS: BP 140/92
--- NOTE | 2020-01-04 11:22 | PDOC ---
[facility] PROGRESS NOTE Chief Complaint Chief Complaint Appendicitis s/p appendectomy day #8 resolving SBO vs. left-sided colitis History of Present Illness History of Present Illness 01/03/2020 Pt seen and examined. Pt is s/p appendectomy day #8. He is still very distended and has intermittent abdominal pain. He has passed a handful of stools at this time. He has clean dry and intact trocar sites. He has a HEMA drain placed in the right lower quadrant with yellow fluid noted in bulb. Surgery notes that he is feeling better, and that he is progressing. We will continue IV nutrition, IV antibiotics, IV Fluids, wound care. We will advance diet per surgery approval towards eventual solid foods. Vitals/I&O Vitals/I&O: Vital Signs Date Time Temp Pulse Resp B/P (MAP) Pulse Ox O2 Delivery O2 Flow Rate FiO2 01/04/20 08:00 Room Air 01/04/20 07:00 98.4 100 16 131/87 (102) 95 98.4 I & O 01/03/20 01/03/20 01/04/20 15:00 23:00 07:00 Intake Total 0 ml 50 ml 2820 ml Output Total 600 ml 51 ml 200 ml Balance -600 ml -1 ml 2620 ml Physical Exam Physical Exam: GENERAL: Propped up in bed, alert, NAD - looks well HEENT: Pupils equally round and reactive. Oropharynx is pink and moist. No thrush. NECK: Supple. LUNGS: Clear to auscultation. HEART: S1, S2. ABDOMEN: Obese, distended , Not as tender, hypoactive bowel sounds. HEMA intact - serous drainage - NGT - out EXTREMITIES: No gross edema or cyanosis. DERMATOLOGIC: Warm to touch without signs of rash. NEUROLOGIC: Alert and answering questions appropriately. PIV General: Alert, Oriented X3, No acute distress Heart: Regular rate, Normal S1, Normal S2, Other (heart tones regular, tachycardic. Not on tele) Lungs: Clear Abdomen: Soft, No masses, Other (distended) Extremities: No edema, Normal pulses, No tenderness/swelling Skin: No significant lesion Assessment and Plan Assessmemt and Plan Assessment: 1. Appendicitis s/p appendectomy day #8 2. resolving SBO vs. left-sided colitis Plan: 1. Continue IV nutrition replacement 2. continue IV antibiotics 3. Continue clear liquid diet, progress when approved by surgery 4. continue wound care Comment Review of Relevant I have reviewed the following items eileen (where applicable) has been applied. Hemodynamically unstable?: No Is patient in severe pain?: No Is NPO status required?: Yes ABRAM SCHUMACHER III DO Jan 04, 2020 11:22
--- NOTE | 2020-01-04 12:06 | PDOC ---
ELEANOR LEARY TRAILER DRIVER 01/04/20 1206: SURGICAL PROGRESS NOTE Subjective ng out, emesis x 1 last night with jello + stool today complaints of reflux Vital Signs Vital Signs Date Time Temp Pulse Resp B/P (MAP) Pulse Ox O2 Delivery O2 Flow Rate FiO2 01/04/20 08:00 Room Air 01/04/20 07:00 98.4 100 16 131/87 (102) 95 98.4 I&O Intake and Output 01/04/20 07:00 Intake Total 2870 ml Output Total 851 ml Balance 2019 ml Intake Oral 200 ml IV Total 2670 ml Output Urine Total 800 ml Oral Regurgitation 1 ml Drainage Total 50 ml # Bowel Movements 1 General: Alert, Oriented X3, Cooperative Abdomen: Soft, Other (lap sites c/d/i, no erythema, drain serous ) Labs Laboratory Tests Test 01/03/20 03:34 White Blood Count 8.4 x10^3/uL (4.0-11.0) Red Blood Count 4.60 x10^6/uL (4.30-5.70) Hemoglobin 14.0 g/dL (13.0-17.5) Hematocrit 40.4 % (39.0-53.0) Mean Corpuscular Volume 88 fL (79-100) Mean Corpuscular Hemoglobin 31 pg (25-35) Mean Corpuscular Hemoglobin Concent 35 g/dL (31-37) Red Cell Distribution Width 13.8 % (11.5-14.5) Platelet Count 233 x10^3/uL (140-400) Neutrophils (%) (Auto) 69 % (31-73) Lymphocytes (%) (Auto) 11 % (24-48) Monocytes (%) (Auto) 16 % (0-9) Eosinophils (%) (Auto) 3 % (0-3) Basophils (%) (Auto) 0 % (0-3) Neutrophils # (Auto) 5.8 x10^3/uL (1.8-7.7) Lymphocytes # (Auto) 0.9 x10^3/uL (1.0-4.8) Monocytes # (Auto) 1.4 x10^3/uL (0.0-1.1) Eosinophils # (Auto) 0.2 x10^3/uL (0.0-0.7) Basophils # (Auto) 0.0 x10^3/uL (0.0-0.2) Sodium Level 135 mmol/L (136-145) Potassium Level 3.6 mmol/L (3.5-5.1) Chloride Level 101 mmol/L (98-107) Carbon Dioxide Level 21 mmol/L (21-32) Anion Gap 13 (6-14) Blood Urea Nitrogen 21 mg/dL (8-26) Creatinine 0.9 mg/dL (0.7-1.3) Estimated GFR (Cockcroft-Gault) 87.6 BUN/Creatinine Ratio 23 (6-20) Glucose Level 144 mg/dL (70-99) Calcium Level 7.8 mg/dL (8.5-10.1) Total Bilirubin 1.1 mg/dL (0.2-1.0) Aspartate Amino Transf (AST/SGOT) 50 U/L (15-37) Alanine Aminotransferase (ALT/SGPT) 101 U/L (16-63) Alkaline Phosphatase 86 U/L (46-116) Total Protein 5.9 g/dL (6.4-8.2) Albumin 2.4 g/dL (3.4-5.0) Albumin/Globulin Ratio 0.7 (1.0-1.7) Problem List s/p appy go slow, await improved bowel function ALICE BARRERA MD 01/04/20 1355: SURGICAL PROGRESS NOTE Assessment/Plan pt seen up to chair tolerating ice chips thinks he ate clears too fast last noc had a "free range" stool earlier continue supportive care Dr Eaton and Eleanor to follow over the weekend ELEANOR LEARY APRN Jan 04, 2020 12:06 ALICE BARRERA MD Jan 04, 2020 13:55
--- NOTE | 2020-01-04 12:29 | PDOC ---
Subjective: Subjective: Vomited yesterday, feels better today w/ just ice chips. Passed stool and gas today. Objective: Objective: Reviewed chart - other notes indicate has has some reflux. Vital Signs: Vital Signs Date Time Temp Pulse Resp B/P (MAP) Pulse Ox O2 Delivery O2 Flow Rate FiO2 01/04/20 08:00 Room Air 01/04/20 07:00 98.4 100 16 131/87 (102) 95 98.4 PE: GEN: NAD - hiccups, NG out LUNGS: CTAB HEART: RRR ABD: distended, quiet NEURO/PSYCH: A & O 3 A/P: S/p appendectomy, SBO -- Diet per surgery. Continue PPI. Hemodynamically unstable?: No Is patient in severe pain?: No Is NPO status required?: Yes JERAMIE MUNOZ Jan 04, 2020 12:29
[2020-01-04 14:31] LABS: ALBUMIN 2.5 g/dL (3.4-5.0); ALBUMIN/GLOBULIN RATIO 0.6 (1.0-1.7); CALCIUM 8.2 mg/dL (8.5-10.1); GFR 77.6; POTASSIUM 4.1 mmol/L (3.5-5.1); TOTAL BILIRUBIN 1.2 mg/dL (0.2-1.0); TOTAL PROTEIN 6.5 g/dL (6.4-8.2)
[2020-01-04 15:00] VITALS: BP 142/87
[2020-01-04 19:00] VITALS: BP 141/95
[2020-01-04 23:04] VITALS: BP 150/129
[2020-01-05 03:06] VITALS: BP 146/96
[2020-01-05 04:42] LABS: BASO # 0.1 x10^3/uL (0.0-0.2); BASO % 1 % (0-3); EOS # 0.3 x10^3/uL (0.0-0.7); EOS % 3 % (0-3); HEMATOCRIT 39.5 % (39.0-53.0); HEMOGLOBIN 13.4 g/dL (13.0-17.5); LYMPH # 1.1 x10^3/uL (1.0-4.8); LYMPH % 11 % (24-48); MEAN CORPUSCULAR HEMOGLOBIN 30 pg (25-35); MEAN CORPUSCULAR HGB CONC 34 g/dL (31-37); MEAN CORPUSCULAR VOLUME 87 fL (79-100); MONO # 1.2 x10^3/uL (0.0-1.1); MONO % 11 % (0-9); NEUT # 7.9 x10^3/uL (1.8-7.7); NEUT % 74 % (31-73); PLATELET COUNT 278 x10^3/uL (140-400); RED BLOOD COUNT 4.53 x10^6/uL (4.30-5.70); RED CELL DISTRIBUTION WIDTH 13.2 % (11.5-14.5); WHITE BLOOD COUNT 10.6 x10^3/uL (4.0-11.0)
[2020-01-05 05:02] LABS: CALCIUM 8.1 mg/dL (8.5-10.1); GFR 77.6; POTASSIUM 4.1 mmol/L (3.5-5.1)
[2020-01-05] MEDS: chlorproMAZINE 12.5 MG in IV DEXTROSE 5% 50 ML IV PRN ×3 (05:16→21:02)
[2020-01-05] MEDS: PIPERACILLIN/TAZOBACTAM 3.375 GM in IV NORMAL SALINE 50ML 50 ML IV SCH ×2 (05:53→13:06)
[2020-01-05 07:00] VITALS: BP 139/92
--- NOTE | 2020-01-05 08:32 | PDOC ---
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 Pain shifted to the right lower quadrant area associated with nausea, vomiting and chills. A CT abdomen/pelvis showed a showed a distended appendix with moderate periappendiceal inflammatory change. Dr. Garcia performed a laparoscopic appendectomy and placement of a 19-Mongol[place] Javy drain on 12/28/2019. The appendix was gangrenous and friable without obvious periappendiceal abscess. General surgery, ID, Cardiology, GI consulted. 12/29: Developed SBO, NGT placed. 12/30: CT with SBO 12/31: Still distended 01/01: ng out, emesis with jello 01/02: Stool today. Still very distended and has intermittent abdominal pain. Has a HEMA drain placed in the right lower quadrant with yellow fluid noted in bulb. c/o hiccups today. Taking contrast for imaging today. Still having BM. Feels some nausea, asking for something more for his hiccups Vitals Vitals Vital Signs Date Time Temp Pulse Resp B/P (MAP) Pulse Ox O2 Delivery O2 Flow Rate FiO2 01/05/20 07:00 98.3 97 16 139/92 (108) 95 Room Air 98.3 Physical Exam Physical Exam GENERAL: Propped up in bed, alert, NAD - looks well HEENT: Pupils equally round and reactive. Oropharynx is pink and moist. No thrush. NECK: Supple. LUNGS: Clear to auscultation. HEART: S1, S2. ABDOMEN: Obese, distended , Not as tender, hypoactive bowel sounds. HEMA intact - serous drainage - NGT - out EXTREMITIES: No gross edema or cyanosis. DERMATOLOGIC: Warm to touch without signs of rash. NEUROLOGIC: Alert and answering questions appropriately. PIV General: Alert, Oriented X3, Cooperative Heart: Regular rate, Normal S1, Normal S2, Other (heart tones regular, tachycardic. Not on tele) Lungs: Clear Abdomen: Soft, Other (lap sites c/d/i, no erythema, drain serous ) Extremities: No edema, Normal pulses, No tenderness/swelling Skin: No significant lesion Labs LABS Laboratory Tests Test 01/04/20 13:40 01/05/20 03:50 Sodium Level 134 mmol/L (136-145) 133 mmol/L (136-145) Potassium Level 4.1 mmol/L (3.5-5.1) 4.1 mmol/L (3.5-5.1) Chloride Level 99 mmol/L (98-107) 100 mmol/L (98-107) Carbon Dioxide Level 25 mmol/L (21-32) 23 mmol/L (21-32) Anion Gap 10 (6-14) 10 (6-14) Blood Urea Nitrogen 18 mg/dL (8-26) 19 mg/dL (8-26) Creatinine 1.0 mg/dL (0.7-1.3) 1.0 mg/dL (0.7-1.3) Estimated GFR (Cockcroft-Gault) 77.6 77.6 BUN/Creatinine Ratio 18 (6-20) Glucose Level 138 mg/dL (70-99) 131 mg/dL (70-99) Calcium Level 8.2 mg/dL (8.5-10.1) 8.1 mg/dL (8.5-10.1) Total Bilirubin 1.2 mg/dL (0.2-1.0) Aspartate Amino Transf (AST/SGOT) 44 U/L (15-37) Alanine Aminotransferase (ALT/SGPT) 116 U/L (16-63) Alkaline Phosphatase 94 U/L (46-116) Total Protein 6.5 g/dL (6.4-8.2) Albumin 2.5 g/dL (3.4-5.0) Albumin/Globulin Ratio 0.6 (1.0-1.7) White Blood Count 10.6 x10^3/uL (4.0-11.0) Red Blood Count 4.53 x10^6/uL (4.30-5.70) Hemoglobin 13.4 g/dL (13.0-17.5) Hematocrit 39.5 % (39.0-53.0) Mean Corpuscular Volume 87 fL (79-100) Mean Corpuscular Hemoglobin 30 pg (25-35) Mean Corpuscular Hemoglobin Concent 34 g/dL (31-37) Red Cell Distribution Width 13.2 % (11.5-14.5) Platelet Count 278 x10^3/uL (140-400) Neutrophils (%) (Auto) 74 % (31-73) Lymphocytes (%) (Auto) 11 % (24-48) Monocytes (%) (Auto) 11 % (0-9) Eosinophils (%) (Auto) 3 % (0-3) Basophils (%) (Auto) 1 % (0-3) Neutrophils # (Auto) 7.9 x10^3/uL (1.8-7.7) Lymphocytes # (Auto) 1.1 x10^3/uL (1.0-4.8) Monocytes # (Auto) 1.2 x10^3/uL (0.0-1.1) Eosinophils # (Auto) 0.3 x10^3/uL (0.0-0.7) Basophils # (Auto) 0.1 x10^3/uL (0.0-0.2) Comment Review of Relevant I have reviewed the following items eileen (where applicable) has been applied. Labs Laboratory Tests Test 01/04/20 13:40 01/05/20 03:50 Sodium Level 134 mmol/L (136-145) 133 mmol/L (136-145) Potassium Level 4.1 mmol/L (3.5-5.1) 4.1 mmol/L (3.5-5.1) Chloride Level 99 mmol/L (98-107) 100 mmol/L (98-107) Carbon Dioxide Level 25 mmol/L (21-32) 23 mmol/L (21-32) Anion Gap 10 (6-14) 10 (6-14) Blood Urea Nitrogen 18 mg/dL (8-26) 19 mg/dL (8-26) Creatinine 1.0 mg/dL (0.7-1.3) 1.0 mg/dL (0.7-1.3) Estimated GFR (Cockcroft-Gault) 77.6 77.6 BUN/Creatinine Ratio 18 (6-20) Glucose Level 138 mg/dL (70-99) 131 mg/dL (70-99) Calcium Level 8.2 mg/dL (8.5-10.1) 8.1 mg/dL (8.5-10.1) Total Bilirubin 1.2 mg/dL (0.2-1.0) Aspartate Amino Transf (AST/SGOT) 44 U/L (15-37) Alanine Aminotransferase (ALT/SGPT) 116 U/L (16-63) Alkaline Phosphatase 94 U/L (46-116) Total Protein 6.5 g/dL (6.4-8.2) Albumin 2.5 g/dL (3.4-5.0) Albumin/Globulin Ratio 0.6 (1.0-1.7) White Blood Count 10.6 x10^3/uL (4.0-11.0) Red Blood Count 4.53 x10^6/uL (4.30-5.70) Hemoglobin 13.4 g/dL (13.0-17.5) Hematocrit 39.5 % (39.0-53.0) Mean Corpuscular Volume 87 fL (79-100) Mean Corpuscular Hemoglobin 30 pg (25-35) Mean Corpuscular Hemoglobin Concent 34 g/dL (31-37) Red Cell Distribution Width 13.2 % (11.5-14.5) Platelet Count 278 x10^3/uL (140-400) Neutrophils (%) (Auto) 74 % (31-73) Lymphocytes (%) (Auto) 11 % (24-48) Monocytes (%) (Auto) 11 % (0-9) Eosinophils (%) (Auto) 3 % (0-3) Basophils (%) (Auto) 1 % (0-3) Neutrophils # (Auto) 7.9 x10^3/uL (1.8-7.7) Lymphocytes # (Auto) 1.1 x10^3/uL (1.0-4.8) Monocytes # (Auto) 1.2 x10^3/uL (0.0-1.1) Eosinophils # (Auto) 0.3 x10^3/uL (0.0-0.7) Basophils # (Auto) 0.1 x10^3/uL (0.0-0.2) Laboratory Tests Test 01/04/20 13:40 01/05/20 03:50 Sodium Level 134 mmol/L (136-145) 133 mmol/L (136-145) Potassium Level 4.1 mmol/L (3.5-5.1) 4.1 mmol/L (3.5-5.1) Chloride Level 99 mmol/L (98-107) 100 mmol/L (98-107) Carbon Dioxide Level 25 mmol/L (21-32) 23 mmol/L (21-32) Anion Gap 10 (6-14) 10 (6-14) Blood Urea Nitrogen 18 mg/dL (8-26) 19 mg/dL (8-26) Creatinine 1.0 mg/dL (0.7-1.3) 1.0 mg/dL (0.7-1.3) Estimated GFR (Cockcroft-Gault) 77.6 77.6 BUN/Creatinine Ratio 18 (6-20) Glucose Level 138 mg/dL (70-99) 131 mg/dL (70-99) Calcium Level 8.2 mg/dL (8.5-10.1) 8.1 mg/dL (8.5-10.1) Total Bilirubin 1.2 mg/dL (0.2-1.0) Aspartate Amino Transf (AST/SGOT) 44 U/L (15-37) Alanine Aminotransferase (ALT/SGPT) 116 U/L (16-63) Alkaline Phosphatase 94 U/L (46-116) Total Protein 6.5 g/dL (6.4-8.2) Albumin 2.5 g/dL (3.4-5.0) Albumin/Globulin Ratio 0.6 (1.0-1.7) White Blood Count 10.6 x10^3/uL (4.0-11.0) Red Blood Count 4.53 x10^6/uL (4.30-5.70) Hemoglobin 13.4 g/dL (13.0-17.5) Hematocrit 39.5 % (39.0-53.0) Mean Corpuscular Volume 87 fL (79-100) Mean Corpuscular Hemoglobin 30 pg (25-35) Mean Corpuscular Hemoglobin Concent 34 g/dL (31-37) Red Cell Distribution Width 13.2 % (11.5-14.5) Platelet Count 278 x10^3/uL (140-400) Neutrophils (%) (Auto) 74 % (31-73) Lymphocytes (%) (Auto) 11 % (24-48) Monocytes (%) (Auto) 11 % (0-9) Eosinophils (%) (Auto) 3 % (0-3) Basophils (%) (Auto) 1 % (0-3) Neutrophils # (Auto) 7.9 x10^3/uL (1.8-7.7) Lymphocytes # (Auto) 1.1 x10^3/uL (1.0-4.8) Monocytes # (Auto) 1.2 x10^3/uL (0.0-1.1) Eosinophils # (Auto) 0.3 x10^3/uL (0.0-0.7) Basophils # (Auto) 0.1 x10^3/uL (0.0-0.2) Medications Current Medications Sevoflurane (Ultane) 60 ml STK-MED ONCE IH ; Start 12/28/19 at 17:29; Stop 12/28/19 at 17:30; Status DC Midazolam HCl (Versed) 2 mg STK-MED ONCE .ROUTE ; Start 12/28/19 at 17:30; Stop 12/28/19 at 17:30; Status DC Fentanyl Citrate (Fentanyl 2ml Vial) 100 mcg STK-MED ONCE .ROUTE ; Start 12/28/19 at 17:30; Stop 12/28/19 at 17:30; Status DC Glycopyrrolate (Robinul) 1 mg STK-MED ONCE .ROUTE ; Start 12/28/19 at 17:30; Stop 12/28/19 at 17:31; Status DC Neostigmine Satin (Neostigmine Methylsulfate) 5 mg STK-MED ONCE .ROUTE ; Start 12/28/19 at 17:30; Stop 12/28/19 at 17:31; Status DC Rocuronium Satin (Zemuron) 50 mg STK-MED ONCE .ROUTE ; Start 12/28/19 at 17:30; Stop 12/28/19 at 17:31; Status DC Succinylcholine Chloride (Anectine) 200 mg STK-MED ONCE .ROUTE ; Start 12/28/19 at 17:30; Stop 12/28/19 at 17:31; Status DC Dexamethasone Sodium Phosphate (Decadron) 4 mg STK-MED ONCE .ROUTE ; Start 12/28/19 at 17:31; Stop 12/28/19 at 17:31; Status DC Ondansetron HCl (Zofran) 4 mg STK-MED ONCE .ROUTE ; Start 12/28/19 at 17:31; Stop 2/28/20 at 17:31; Status DC Ketorolac Tromethamine (Toradol 30mg Vial) 30 mg STK-MED ONCE .ROUTE ; Start 12/28/19 at 17:31; Stop 12/28/19 at 17:31; Status DC Lidocaine HCl (Lidocaine Pf 2% Vial) 5 ml STK-MED ONCE .ROUTE ; Start 12/28/19 at 17:31; Stop 12/28/19 at 17:31; Status DC Propofol 20 ml @ As Directed STK-MED ONCE IV ; Start 12/28/19 at 17:31; Stop 12/28/19 at 17:31; Status DC Metronidazole 100 ml @ 100 mls/hr 1X PREOP PRN IV PER PROTOCOL Last administered on 12/28/19at 17:37; Start 12/28/19 at 17:45; Stop 12/29/19 at 18:45; Status DC Bupivacaine HCl/ Epinephrine Bitart (Sensorcain-Epi 0.5%-1:[id number] Mpf) 30 ml STK-MED ONCE .ROUTE Last administered on 12/28/19at 18:11; Start 12/28/19 at 17:34; Stop 12/28/19 at 17:34; Status DC Metronidazole 100 ml @ As Directed STK-MED ONCE IV ; Start 12/28/19 at 17:36; Stop 12/28/19 at 17:36; Status DC Metronidazole 100 ml @ 100 mls/hr 1X ONCE IV ; Start 12/28/19 at 17:45; Stop 12/28/19 at 18:44; Status DC Ondansetron HCl (Zofran) 4 mg PRN Q6HRS PRN IV NAUSEA/VOMITING; Start 12/28/19 at 18:00; Stop 12/29/19 at 17:59; Status DC Fentanyl Citrate (Fentanyl 2ml Vial) 25 mcg PRN Q5MIN PRN IV MILD PAIN 1-3; Start 12/28/19 at 18:00; Stop 12/29/19 at 17:59; Status DC Fentanyl Citrate (Fentanyl 2ml Vial) 50 mcg PRN Q5MIN PRN IV MODERATE TO SEVERE PAIN; Start 12/28/19 at 18:00; Stop 12/29/19 at 17:59; Status DC Morphine Sulfate (Morphine Sulfate) 1 mg PRN Q10MIN PRN IV SEVERE PAIN 7-10; Start 12/28/19 at 18:00; Stop 12/29/19 at 17:59; Status DC Ringer's Solution 1,000 ml @ 30 mls/hr Q24H IV Last administered on 12/28/19at 19:43; Start 12/28/19 at 17:50; Stop 12/29/19 at 05:49; Status DC Lidocaine HCl (Xylocaine-Mpf 1% 2ml Vial) 2 ml PRN 1X PRN ID PRIOR TO IV START; Start 12/28/19 at 18:00; Stop 12/29/19 at 17:59; Status DC Hydromorphone HCl (Dilaudid) 0.5 mg PRN Q10MIN PRN IV SEV PAIN, Second choice; Start 12/28/19 at 18:00; Stop 12/29/19 at 17:59; Status DC Prochlorperazine Edisylate (Compazine) 5 mg PACU PRN PRN IV NAUSEA, MRX1; Start 12/28/19 at 18:00; Stop 12/29/19 at 17:59; Status UNV Enoxaparin Sodium (Lovenox 40mg Syringe) 40 mg DAILY SQ Last administered on 01/04/20at 08:58; Start 12/29/19 at 09:00 Sodium Chloride (Normal Saline Flush) 3 ml QSHIFT PRN IV AFTER MEDS AND BLOOD DRAWS; Start 12/28/19 at 19:15 Potassium Chloride/Sodium Chloride 1,000 ml @ 75 mls/hr [id number] IV Last administered on 01/01/20at 08:33; Start 12/28/19 at 20:00; Stop 01/01/20 at 15:08; Status DC Dextrose (Dextrose 50%-Water Syringe) 12.5 gm PRN Q15MIN PRN IV SEE COMMENTS; Start 12/28/19 at 19:15 Oxycodone/ Acetaminophen (Percocet 5/325) 1 tab PRN Q4HRS PRN PO MILD PAIN, 1ST CHOICE Last administered on 12/29/19at 09:19; Start 12/28/19 at 19:15 Oxycodone/ Acetaminophen (Percocet 5/325) 2 tab PRN Q4HRS PRN PO MODERATE PAIN, SEVERE PAIN Last administered on 12/29/19at 18:14; Start 12/28/19 at 19:15 Naloxone HCl (Narcan) 0.4 mg PRN Q2MIN PRN IV SEE INSTRUCTIONS; Start 12/28/19 at 19:15 Sodium Chloride 1,000 ml @ 25 mls/hr Q24H IV ; Start 12/28/19 at 19:13; Stop 01/01/20 at 15:08; Status DC Hydromorphone HCl (Dilaudid) 1 mg PRN Q4HRS PRN IV SEVERE PAIN 7-10; Start 12/28/19 at 19:15; Status Cancel Docusate Sodium (Colace) 100 mg BID PO Last administered on 12/30/19at 08:30; Start 12/28/19 at 21:00; Stop 01/01/20 at 07:59; Status DC Ondansetron HCl (Zofran) 4 mg PRN Q6HRS PRN IVP NAUESA, 1ST CHOICE Last administered on 01/03/20at 20:21; Start 12/28/19 at 19:15 Cefazolin Sodium/ Dextrose 50 ml @ 100 mls/hr Q8HRS IV Last administered on 12/29/19at 14:19; Start 12/28/19 at 22:00; Stop 12/29/19 at 14:24; Status DC Metronidazole 100 ml @ 100 mls/hr Q12HR IV Last administered on 12/29/19at 09:18; Start 12/28/19 at 21:00; Stop 12/29/19 at 14:24; Status DC Info (FLU VACCINE SCREEN per RX) 1 each PRN 1X PRN MC SEE COMMENTS; Start 12/29/19 at 04:30; Status UNV Influenza Virus Vaccine Quadrival (Afluria Quad 2019-20 (3yr Up) Syringe) 0.5 ml ONCE ONCE VAX IM Last administered on 12/29/19at 09:21; Start 12/29/19 at 09:00; Stop 12/29/19 at 09:01; Status DC Piperacillin Sod/ Tazobactam Sod 3.375 gm/Sodium Chloride 50 ml @ 100 mls/hr Q6HRS IV Last administered on 01/05/20at 05:53; Start 12/29/19 at 18:00 Bismuth Subsalicylate (Pepto-Bismol) 786 mg PRN Q3HRS PRN PO DIARRHEA Last administered on 12/29/19at 22:33; Start 12/29/19 at 22:30 Lisinopril (Prinivil) 5 mg 1X ONCE PO Last administered on 12/30/19at 01:26; Start 12/30/19 at 01:30; Stop 12/30/19 at 01:31; Status DC Benzocaine (Hurricaine One) 1 spray 1X ONCE MM Last administered on 12/30/19at 12:30; Start 12/30/19 at 12:30; Stop 12/30/19 at 12:31; Status DC Lidocaine HCl (Glydo (Lidocaine) Jelly) 2 kenny 1X ONCE MM Last administered on 12/30/19at 12:30; Start 12/30/19 at 12:30; Stop 12/30/19 at 12:31; Status DC Throat Lozenges (Cepacol Sore Throat Lozenge) 1 maria g PRN Q2HRS PRN PO SORE THROAT; Start 12/30/19 at 15:00 Phenol (Chloraseptic) 1 spray PRN Q2HR PRN PO SORE THROAT- 2ND CHOICE; Start 12/30/19 at 15:00 Hydromorphone HCl (Dilaudid) 1 mg PRN Q4HRS PRN IV pain; Start 12/30/19 at 15:00 Pantoprazole Sodium (PROTONIX VIAL for IV PUSH) 40 mg DAILYAC IVP Last administered on 01/04/20at 08:42; Start 12/30/19 at 23:00 Enalaprilat (Vasotec Inj) 1.25 mg Q6HRS IVP Last administered on 12/30/19at 20:45; Start 12/30/19 at 21:00; Stop 12/30/19 at 23:15; Status DC Chlorpromazine HCl 12.5 mg/ Dextrose 50.5 ml @ 100 mls/hr PRN Q8HRS PRN IV HICCUPS Last administered on 01/05/20at 05:16; Start 12/30/19 at 20:30 Sodium Chloride 500 ml @ 500 mls/hr 1X ONCE IV Last administered on 12/30/19at 23:47; Start 12/30/19 at 23:30; Stop 12/31/19 at 00:29; Status DC Vancomycin HCl 1 gm/Sodium Chloride 250 ml @ 250 mls/hr Q12H IV ; Start 12/30/19 at 23:15; Status UNV Vancomycin HCl 2 gm/Sodium Chloride 500 ml @ 250 mls/hr 1X ONCE IV Last administered on 12/30/19at 23:47; Start 12/30/19 at 23:30; Stop 12/31/19 at 01:29; Status DC Vancomycin HCl 1.25 gm/Sodium Chloride 250 ml @ 167 mls/hr Q12H IV Last administered on 12/31/19at 13:17; Start 12/31/19 at 12:00; Stop 12/31/19 at 13:57; Status DC Vancomycin HCl (Vancomycin Trough Level) 1 each 1X ONCE MC ; Start 01/01/20 at 11:30; Stop 12/31/19 at 13:58; Status DC Vancomycin HCl (Vanco Per Pharmacy) 1 each PRN DAILY PRN MC SEE COMMENTS Last administered on 12/31/19at 02:17; Start 12/30/19 at 23:15; Stop 12/31/19 at 13:57; Status DC Enalaprilat (Vasotec Inj) 1.25 mg PRN Q6HRS PRN IVP SBP >160; Start 12/30/19 at 23:15 Sodium Chloride 1,000 ml @ 75 mls/hr [id number] IV Last administered on 12/31/19at 18:44; Start 12/31/19 at 16:45; Stop 01/01/20 at 15:08; Status DC Docusate Sodium (Colace Solution) 100 mg BID PO Last administered on 01/01/20at 08:32; Start 01/01/20 at 09:00; Stop 01/01/20 at 11:58; Status DC Potassium Chloride/Sodium Chloride 1,000 ml @ 30 mls/hr Q24H IV Last administered on 01/04/20at 17:24; Start 01/01/20 at 15:15 Amino Acids/ Electrolytes/ Dextrose 1,000 ml @ 80 mls/hr [id number] IV Last administered on 01/04/20at 23:06; Start 01/02/20 at 08:00 Bisacodyl (Dulcolax Supp) 10 mg 1X ONCE [place] Last administered on 01/02/20at 14:30; Start 01/02/20 at 14:30; Stop 01/02/20 at 14:31; Status DC Bisacodyl (Dulcolax Supp) 10 mg PRN DAILY PRN [place] CONSTIPATION Last administered on 01/03/20at 16:32; Start 01/02/20 at 14:30 Vitals/I & O Vital Sign - Last 24 Hours 01/04/20 01/04/20 01/04/20 01/04/20 11:00 15:00 19:00 20:00 Temp 97.8 98.8 98.8 97.8 98.8 98.8 Pulse 95 101 71 Resp B/P (MAP) 140/92 (108) 142/87 (105) 141/95 (110) Pulse Ox 95 92 96 O2 Delivery Room Air Room Air Room Air Room Air 01/04/20 01/05/20 01/05/20 23:04 03:06 07:00 Temp 98.2 98.8 98.3 98.2 98.8 98.3 Pulse 90 96 97 Resp B/P (MAP) 150/129 (136) 146/96 (113) 139/92 (108) Pulse Ox 96 94 95 O2 Delivery Room Air Room Air Room Air Intake and Output 01/04/20 01/04/20 01/05/20 15:00 23:00 07:00 Output Total 70 ml 30 ml Balance -70 ml -30 ml Hemodynamically unstable?: No Is patient in severe pain?: No Is NPO status required?: Yes ROOSEVELT MONTANO MD Jan 05, 2020 08:32
--- NOTE | 2020-01-05 10:02 | PDOC ---
SURGICAL PROGRESS NOTE Subjective vomiting persists, after taking liquids + hiccups, no flatus but had loose stool Vital Signs Vital Signs Date Time Temp Pulse Resp B/P (MAP) Pulse Ox O2 Delivery O2 Flow Rate FiO2 01/05/20 07:00 98.3 97 16 139/92 (108) 95 Room Air 98.3 I&O Intake and Output 01/05/20 07:00 Output Total 100 ml Balance -100 ml Drainage Total 100 ml # Voids 2 General: Alert, Oriented X3, Cooperative Abdomen: Soft, Other (distended, drain serous ) Labs Laboratory Tests Test 01/04/20 13:40 01/05/20 03:50 Sodium Level 134 mmol/L (136-145) 133 mmol/L (136-145) Potassium Level 4.1 mmol/L (3.5-5.1) 4.1 mmol/L (3.5-5.1) Chloride Level 99 mmol/L (98-107) 100 mmol/L (98-107) Carbon Dioxide Level 25 mmol/L (21-32) 23 mmol/L (21-32) Anion Gap 10 (6-14) 10 (6-14) Blood Urea Nitrogen 18 mg/dL (8-26) 19 mg/dL (8-26) Creatinine 1.0 mg/dL (0.7-1.3) 1.0 mg/dL (0.7-1.3) Estimated GFR (Cockcroft-Gault) 77.6 77.6 BUN/Creatinine Ratio 18 (6-20) Glucose Level 138 mg/dL (70-99) 131 mg/dL (70-99) Calcium Level 8.2 mg/dL (8.5-10.1) 8.1 mg/dL (8.5-10.1) Total Bilirubin 1.2 mg/dL (0.2-1.0) Aspartate Amino Transf (AST/SGOT) 44 U/L (15-37) Alanine Aminotransferase (ALT/SGPT) 116 U/L (16-63) Alkaline Phosphatase 94 U/L (46-116) Total Protein 6.5 g/dL (6.4-8.2) Albumin 2.5 g/dL (3.4-5.0) Albumin/Globulin Ratio 0.6 (1.0-1.7) White Blood Count 10.6 x10^3/uL (4.0-11.0) Red Blood Count 4.53 x10^6/uL (4.30-5.70) Hemoglobin 13.4 g/dL (13.0-17.5) Hematocrit 39.5 % (39.0-53.0) Mean Corpuscular Volume 87 fL (79-100) Mean Corpuscular Hemoglobin 30 pg (25-35) Mean Corpuscular Hemoglobin Concent 34 g/dL (31-37) Red Cell Distribution Width 13.2 % (11.5-14.5) Platelet Count 278 x10^3/uL (140-400) Neutrophils (%) (Auto) 74 % (31-73) Lymphocytes (%) (Auto) 11 % (24-48) Monocytes (%) (Auto) 11 % (0-9) Eosinophils (%) (Auto) 3 % (0-3) Basophils (%) (Auto) 1 % (0-3) Neutrophils # (Auto) 7.9 x10^3/uL (1.8-7.7) Lymphocytes # (Auto) 1.1 x10^3/uL (1.0-4.8) Monocytes # (Auto) 1.2 x10^3/uL (0.0-1.1) Eosinophils # (Auto) 0.3 x10^3/uL (0.0-0.7) Basophils # (Auto) 0.1 x10^3/uL (0.0-0.2) Laboratory Tests Test 01/04/20 13:40 01/05/20 03:50 Sodium Level 134 mmol/L (136-145) 133 mmol/L (136-145) Potassium Level 4.1 mmol/L (3.5-5.1) 4.1 mmol/L (3.5-5.1) Chloride Level 99 mmol/L (98-107) 100 mmol/L (98-107) Carbon Dioxide Level 25 mmol/L (21-32) 23 mmol/L (21-32) Anion Gap 10 (6-14) 10 (6-14) Blood Urea Nitrogen 18 mg/dL (8-26) 19 mg/dL (8-26) Creatinine 1.0 mg/dL (0.7-1.3) 1.0 mg/dL (0.7-1.3) Estimated GFR (Cockcroft-Gault) 77.6 77.6 BUN/Creatinine Ratio 18 (6-20) Glucose Level 138 mg/dL (70-99) 131 mg/dL (70-99) Calcium Level 8.2 mg/dL (8.5-10.1) 8.1 mg/dL (8.5-10.1) Total Bilirubin 1.2 mg/dL (0.2-1.0) Aspartate Amino Transf (AST/SGOT) 44 U/L (15-37) Alanine Aminotransferase (ALT/SGPT) 116 U/L (16-63) Alkaline Phosphatase 94 U/L (46-116) Total Protein 6.5 g/dL (6.4-8.2) Albumin 2.5 g/dL (3.4-5.0) Albumin/Globulin Ratio 0.6 (1.0-1.7) White Blood Count 10.6 x10^3/uL (4.0-11.0) Red Blood Count 4.53 x10^6/uL (4.30-5.70) Hemoglobin 13.4 g/dL (13.0-17.5) Hematocrit 39.5 % (39.0-53.0) Mean Corpuscular Volume 87 fL (79-100) Mean Corpuscular Hemoglobin 30 pg (25-35) Mean Corpuscular Hemoglobin Concent 34 g/dL (31-37) Red Cell Distribution Width 13.2 % (11.5-14.5) Platelet Count 278 x10^3/uL (140-400) Neutrophils (%) (Auto) 74 % (31-73) Lymphocytes (%) (Auto) 11 % (24-48) Monocytes (%) (Auto) 11 % (0-9) Eosinophils (%) (Auto) 3 % (0-3) Basophils (%) (Auto) 1 % (0-3) Neutrophils # (Auto) 7.9 x10^3/uL (1.8-7.7) Lymphocytes # (Auto) 1.1 x10^3/uL (1.0-4.8) Monocytes # (Auto) 1.2 x10^3/uL (0.0-1.1) Eosinophils # (Auto) 0.3 x10^3/uL (0.0-0.7) Basophils # (Auto) 0.1 x10^3/uL (0.0-0.2) Assessment/Plan s/p appy will make NPO will check ct for any possible abscess ELEANOR LEARY APRN Jan 05, 2020 10:02
[2020-01-05] MEDS: ONDANSETRON PF 4 MG/2 ML VIAL. IVP PRN ×2 (10:03→17:37)
[2020-01-05] MEDS: ENOXAPARIN 40 MG/0.4 ML SYRINGE. SQ SCH (10:04)
[2020-01-05] MEDS: PANTOPRAZOLE IV PUSH 40 MG VIAL. IVP SCH (10:04)
--- NOTE | 2020-01-05 10:39 | PDOC ---
Infectious Disease Note Subjective Subjective + reflux No fevers/chills/abdominal pain Vital Sign Vital Signs Vital Signs Date Time Temp Pulse Resp B/P (MAP) Pulse Ox O2 Delivery O2 Flow Rate FiO2 01/05/20 07:00 98.3 97 16 139/92 (108) 95 Room Air 98.3 Physical Exam PHYSICAL EXAM GENERAL: Sitting in the chair, alert in NAD HEENT: Pupils equally round and reactive. Oropharynx is pink and moist. No thrush. NECK: Supple. LUNGS: Clear to auscultation. HEART: S1, S2. ABDOMEN: Obese, distended, nontender, BS present, HEMA intact - serous drainage. small incisions w/ ang in place. No signs of infection EXTREMITIES: No gross edema or cyanosis. DERMATOLOGIC: Warm to touch without signs of rash. NEUROLOGIC: Alert and answering questions appropriately. PIV Labs Lab Laboratory Tests Test 01/04/20 13:40 01/05/20 03:50 Sodium Level 134 mmol/L (136-145) 133 mmol/L (136-145) Potassium Level 4.1 mmol/L (3.5-5.1) 4.1 mmol/L (3.5-5.1) Chloride Level 99 mmol/L (98-107) 100 mmol/L (98-107) Carbon Dioxide Level 25 mmol/L (21-32) 23 mmol/L (21-32) Anion Gap 10 (6-14) 10 (6-14) Blood Urea Nitrogen 18 mg/dL (8-26) 19 mg/dL (8-26) Creatinine 1.0 mg/dL (0.7-1.3) 1.0 mg/dL (0.7-1.3) Estimated GFR (Cockcroft-Gault) 77.6 77.6 BUN/Creatinine Ratio 18 (6-20) Glucose Level 138 mg/dL (70-99) 131 mg/dL (70-99) Calcium Level 8.2 mg/dL (8.5-10.1) 8.1 mg/dL (8.5-10.1) Total Bilirubin 1.2 mg/dL (0.2-1.0) Aspartate Amino Transf (AST/SGOT) 44 U/L (15-37) Alanine Aminotransferase (ALT/SGPT) 116 U/L (16-63) Alkaline Phosphatase 94 U/L (46-116) Total Protein 6.5 g/dL (6.4-8.2) Albumin 2.5 g/dL (3.4-5.0) Albumin/Globulin Ratio 0.6 (1.0-1.7) White Blood Count 10.6 x10^3/uL (4.0-11.0) Red Blood Count 4.53 x10^6/uL (4.30-5.70) Hemoglobin 13.4 g/dL (13.0-17.5) Hematocrit 39.5 % (39.0-53.0) Mean Corpuscular Volume 87 fL (79-100) Mean Corpuscular Hemoglobin 30 pg (25-35) Mean Corpuscular Hemoglobin Concent 34 g/dL (31-37) Red Cell Distribution Width 13.2 % (11.5-14.5) Platelet Count 278 x10^3/uL (140-400) Neutrophils (%) (Auto) 74 % (31-73) Lymphocytes (%) (Auto) 11 % (24-48) Monocytes (%) (Auto) 11 % (0-9) Eosinophils (%) (Auto) 3 % (0-3) Basophils (%) (Auto) 1 % (0-3) Neutrophils # (Auto) 7.9 x10^3/uL (1.8-7.7) Lymphocytes # (Auto) 1.1 x10^3/uL (1.0-4.8) Monocytes # (Auto) 1.2 x10^3/uL (0.0-1.1) Eosinophils # (Auto) 0.3 x10^3/uL (0.0-0.7) Basophils # (Auto) 0.1 x10^3/uL (0.0-0.2) Micro KUB Abnormal bowel gas pattern suggesting a distal small bowel obstruction versus left-sided colitis. Objective Assessment Gangrenous appendicitis s/p laparoscopic appendectomy, 12/28 Leukocytosis - better. in part reactive steroids and surgery, -clinically looks much and feels better Tachycardia - Card following - ? reactive Transamitis - clinimax SBO - on CT 12/30 - hopefully improving with + BM - had a suppository Hypertension Hyperglycemia Abdominal pain - better Plan Plan of Care Continue Zosyn plan to wean between 7 and 10 days post surgery if stable s/p flu vaccine, Monitor drain output Supportive care f/u CT A/P D/w nursing Attending Co-Sign The patient was seen and interviewed as well as examined at the bedside. The chart was reviewed. The case was discussed. Agree with the plan of care. SADI CARBAJAL APRN Jan 05, 2020 10:39 JOSEFA SAUNDERS MD Jan 05, 2020 13:00
[2020-01-05] MEDS ORDERED: CONTRAST GIVEN. MC PRN (10:45)
[2020-01-05 11:00] VITALS: BP 132/94
[2020-01-05] MEDS ORDERED: IOHEXOL 240 MG/ML 50ML VIAL. PO ONE (11:00)
[2020-01-05] MEDS ORDERED: IOHEXOL 300 MG/ML 100ML VIAL. IV ONE (11:00)
[2020-01-05] MEDS: AA 4.25 %/CALCIUM/LYTES/D5W 1,000 ML IV SCH (13:07)
--- NOTE | 2020-01-05 13:35 | PDOC ---
GI PROGRESS NOTES Date Date/Time DATE: 01/05/20 TIME: 13:31 Subjective Subjective Likely appears improved. NGT tube is out. Has had some liquid stool. No vomiting except some emesis after oral contrast for CT today. Objective Vitals Vital Signs Date Time Temp Pulse Resp B/P (MAP) Pulse Ox O2 Delivery O2 Flow Rate FiO2 01/05/20 11:00 97.4 99 18 132/94 (107) 100 Room Air 97.4 01/05/20 08:00 Room Air 2.0 01/05/20 07:00 98.3 97 16 139/92 (108) 95 Room Air 98.3 01/05/20 03:06 98.8 96 20 146/96 (113) 94 Room Air 98.8 01/04/20 23:04 98.2 90 20 150/129 (136) 96 Room Air 98.2 01/04/20 20:00 Room Air 01/04/20 19:00 98.8 71 20 141/95 (110) 96 Room Air 98.8 01/04/20 15:00 98.8 101 20 142/87 (105) 92 Room Air 98.8 Labs Labs Laboratory Tests Test 01/04/20 13:40 01/05/20 03:50 Sodium Level 134 mmol/L (136-145) 133 mmol/L (136-145) Potassium Level 4.1 mmol/L (3.5-5.1) 4.1 mmol/L (3.5-5.1) Chloride Level 99 mmol/L (98-107) 100 mmol/L (98-107) Carbon Dioxide Level 25 mmol/L (21-32) 23 mmol/L (21-32) Anion Gap 10 (6-14) 10 (6-14) Blood Urea Nitrogen 18 mg/dL (8-26) 19 mg/dL (8-26) Creatinine 1.0 mg/dL (0.7-1.3) 1.0 mg/dL (0.7-1.3) Estimated GFR (Cockcroft-Gault) 77.6 77.6 BUN/Creatinine Ratio 18 (6-20) Glucose Level 138 mg/dL (70-99) 131 mg/dL (70-99) Calcium Level 8.2 mg/dL (8.5-10.1) 8.1 mg/dL (8.5-10.1) Total Bilirubin 1.2 mg/dL (0.2-1.0) Aspartate Amino Transf (AST/SGOT) 44 U/L (15-37) Alanine Aminotransferase (ALT/SGPT) 116 U/L (16-63) Alkaline Phosphatase 94 U/L (46-116) Total Protein 6.5 g/dL (6.4-8.2) Albumin 2.5 g/dL (3.4-5.0) Albumin/Globulin Ratio 0.6 (1.0-1.7) White Blood Count 10.6 x10^3/uL (4.0-11.0) Red Blood Count 4.53 x10^6/uL (4.30-5.70) Hemoglobin 13.4 g/dL (13.0-17.5) Hematocrit 39.5 % (39.0-53.0) Mean Corpuscular Volume 87 fL (79-100) Mean Corpuscular Hemoglobin 30 pg (25-35) Mean Corpuscular Hemoglobin Concent 34 g/dL (31-37) Red Cell Distribution Width 13.2 % (11.5-14.5) Platelet Count 278 x10^3/uL (140-400) Neutrophils (%) (Auto) 74 % (31-73) Lymphocytes (%) (Auto) 11 % (24-48) Monocytes (%) (Auto) 11 % (0-9) Eosinophils (%) (Auto) 3 % (0-3) Basophils (%) (Auto) 1 % (0-3) Neutrophils # (Auto) 7.9 x10^3/uL (1.8-7.7) Lymphocytes # (Auto) 1.1 x10^3/uL (1.0-4.8) Monocytes # (Auto) 1.2 x10^3/uL (0.0-1.1) Eosinophils # (Auto) 0.3 x10^3/uL (0.0-0.7) Basophils # (Auto) 0.1 x10^3/uL (0.0-0.2) Physical Exam Physical Exam Chest clear Heart regular rate and rhythm Abdomen soft mildly distended, minimal tenderness but without point tenderness. Bowel sounds are decreased but present Assessment Assessment Prolonged postop ileus after gangrenous appendicitis. Some clinical improvement the last day or so. Liquid stools today suggests the possibility of improvement. However he did have some emesis with the oral contrast for his CT today. Continue to monitor closely Transaminase elevation. This is new over the last day or so. On admission his labs were normal. This likely represents medication related issue although which medicine is unclear. Since he is clinically improving I don't think his underlying infection or prior possible sepsis is a contributor. Prior imaging did not reveal gallbladder disease but this should be monitored as well Plan Plan Continue to monitor progress check CT repeat LFTS and monitor Hemodynamically unstable?: No Is patient in severe pain?: No Is NPO status required?: Yes FLAVIO CONLEY MD Jan 05, 2020 13:35
[2020-01-05 15:00] VITALS: BP 135/92
--- NOTE | 2020-01-05 16:40 | RAD ---
Exam performed: CT abdomen and pelvis with contrast HISTORY: History of recent appendectomy suspected abscess. DATE OF SERVICE: 01/05/2020. COMPARISON: CT abdomen and pelvis without contrast from 12/31/2019. TECHNIQUE: Contiguous helical acquisitions are obtained through the abdomen and pelvis during intravenous administration of 75 cc of Omnipaque 300. Sagittal and coronal reformatted images are obtained and reviewed. FINDINGS: Lung bases are essentially clear. Minimal bibasilar atelectasis. Visualized heart is normal. The liver, gallbladder and spleen appear normal. Mild splenomegaly. Both adrenal glands and bilateral kidneys are normal in size with symmetric excretion of contrast via both kidneys. There is no hydronephrosis or nephrolithiasis. There is mild dilation of several small bowel loops throughout the abdomen with probable transition in the right lower abdomen. The large bowel is relatively decompressed. There is a drainage tube terminating in the pelvis. There is no free fluid. No abscess formation is identified. Urinary bladder is decompressed. The prostate gland, seminal vesicles and rectum appear normal. Bones are unremarkable. IMPRESSION: Mild dilation of several small bowel loops throughout the abdomen with relative decompression of the colon. There is perhaps transition in the right lower abdomen. Findings may be related to small bowel obstruction or ileus pattern . Close clinical and radiographic follow-up exams may be obtained to ensure interval stability. PQRS Compliance Statement: One or more of the following individualized dose reduction techniques were utilized for this examination: 1. Automated exposure control 2. Adjustment of the mA and/or kV according to patient size 3. Use of iterative reconstruction technique Electronically signed by: Padma Giordano MD (01/05/2020 4:37 PM) [id number]
[2020-01-05] MEDS ORDERED: SIMETHICONE DROPS 40 MG/0.6 ML ORAL SUSPENSION. PO PRN (17:30)
[2020-01-05 19:15] VITALS: BP 133/90
[2020-01-05] MEDS: AMOXICILLIN/K CLAV 875/125MG TABLET. PO SCH ×2 (21:00→21:02)
[2020-01-05 23:15] VITALS: BP 137/90
[2020-01-06 03:15] VITALS: BP 132/83
[2020-01-06] MEDS: AA 4.25 %/CALCIUM/LYTES/D5W 1,000 ML IV SCH ×2 (03:39→12:00)
[2020-01-06 05:54] LABS: ALBUMIN 2.6 g/dL (3.4-5.0); DIRECT BILIRUBIN 0.2 mg/dL (0.0-0.2); TOTAL BILIRUBIN 0.6 mg/dL (0.2-1.0); TOTAL PROTEIN 6.5 g/dL (6.4-8.2)
[2020-01-06 07:59] VITALS: BP 136/89
--- NOTE | 2020-01-06 09:12 | PDOC ---
GI PROGRESS NOTES Date Date/Time DATE: 01/06/20 TIME: 09:09 Subjective Subjective He appears clinically improving. Describes several loose stools including some of the oral contrast from his CT. CT scan continues to reveal dilated small bowel suggestive of partial small bowel obstruction or ileus. The colon is decompressed. Abscesses noted. Objective Vitals Vital Signs Date Time Temp Pulse Resp B/P (MAP) Pulse Ox O2 Delivery O2 Flow Rate FiO2 01/06/20 07:59 98.8 92 18 136/89 (105) 96 Room Air 98.8 01/06/20 03:15 98.5 80 18 132/83 (99) 97 Room Air 98.5 01/05/20 23:15 98.1 91 18 137/90 (106) 98 Room Air 98.1 01/05/20 19:15 97.7 96 19 133/90 (104) 98 Room Air 97.7 01/05/20 15:00 98.1 92 18 135/92 (106) 96 Room Air 98.1 01/05/20 11:00 97.4 99 18 132/94 (107) 100 Room Air 97.4 Labs Labs Laboratory Tests Test 01/06/20 04:05 Total Bilirubin 0.6 mg/dL (0.2-1.0) Direct Bilirubin 0.2 mg/dL (0.0-0.2) Aspartate Amino Transf (AST/SGOT) 38 U/L (15-37) Alanine Aminotransferase (ALT/SGPT) 105 U/L (16-63) Alkaline Phosphatase 101 U/L (46-116) Total Protein 6.5 g/dL (6.4-8.2) Albumin 2.6 g/dL (3.4-5.0) Physical Exam Physical Exam Chest clear Heart regular rate and rhythm Abdomen soft mildly distended, minimal tenderness but without point tenderness. Bowel sounds are decreased but present Assessment Assessment Prolonged postop ileus after gangrenous appendicitis. Some clinical improvement the last day or so. Liquid stools yesterday and today suggests the possibility of improvement. However he did have some emesis with the oral contrast for his CT yesterday. Continue to monitor closely- may be ready for a liquid diet if okay with surgery Transaminase elevation. This is new over the last day or so. On admission his labs were normal. This likely represents medication related issue although which medicine is unclear. Since he is clinically improving I don't think his underlying infection or prior possible sepsis is a contributor. Prior imaging did not reveal gallbladder disease but this should be monitored as well- repeat labs this morning are stable- we will continue to monitor Dr. Oakes Will resume his Gi care tomorrow Plan Plan Continue to monitor progress check CT repeat LFTS and monitor Hemodynamically unstable?: No Is patient in severe pain?: No Is NPO status required?: Yes FLAVIO CONLEY MD Jan 06, 2020 09:12
[2020-01-06] MEDS: AMOXICILLIN/K CLAV 875/125MG TABLET. PO SCH ×2 (09:17→20:50)
[2020-01-06] MEDS: ENOXAPARIN 40 MG/0.4 ML SYRINGE. SQ SCH (09:17)
[2020-01-06] MEDS: PANTOPRAZOLE IV PUSH 40 MG VIAL. IVP SCH (09:17)
--- NOTE | 2020-01-06 11:02 | PDOC ---
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 Pain shifted to the right lower quadrant area associated with nausea, vomiting and chills. A CT abdomen/pelvis showed a showed a distended appendix with moderate periappendiceal inflammatory change. Dr. Garcia performed a laparoscopic appendectomy and placement of a 19-[place] Javy drain on 12/28/2019. The appendix was gangrenous and friable without obvious periappendiceal abscess. General surgery, ID, Cardiology, GI consulted. 12/29: Developed SBO, NGT placed. 12/30: CT with SBO 12/31: Still distended 01/01: ng out, emesis with jello. Pathology - Acute appendicitis with serosal exudate. 01/02: Stool today. Still very distended and has intermittent abdominal pain. Has a HEMA drain placed in the right lower quadrant with yellow fluid noted in bulb. 01/03: c/o hiccups today. Still having BM. Feels some nausea, asking for something more for his hiccups 01/04: CT abdomen showing RLQ ileus vs SBO. Hiccups difficult to control Feeling improved. Had another BM. Hiccups have resolved for now. Abdomen still distended. No NV. No CP or SOB. Vitals Vitals Vital Signs Date Time Temp Pulse Resp B/P (MAP) Pulse Ox O2 Delivery O2 Flow Rate FiO2 01/06/20 07:59 98.8 92 18 136/89 (105) 96 Room Air 98.8 01/05/20 08:00 2.0 Physical Exam Physical Exam GENERAL: Sitting in the chair, alert in NAD HEENT: Pupils equally round and reactive. Oropharynx is pink and moist. No thrush. NECK: Supple. LUNGS: Clear to auscultation. HEART: S1, S2. ABDOMEN: Obese, distended, nontender, BS present, HEMA intact - serous drainage. small incisions w/ ang in place. No signs of infection EXTREMITIES: No gross edema or cyanosis. DERMATOLOGIC: Warm to touch without signs of rash. NEUROLOGIC: Alert and answering questions appropriately. PIV General: Alert, Oriented X3, Cooperative Heart: Regular rate, Normal S1, Normal S2, Other (heart tones regular, tachycardic. Not on tele) Lungs: Clear Abdomen: Soft, Other (distended, drain serous ) Extremities: No edema, Normal pulses, No tenderness/swelling Skin: No significant lesion Labs LABS Laboratory Tests Test 01/06/20 04:05 Total Bilirubin 0.6 mg/dL (0.2-1.0) Direct Bilirubin 0.2 mg/dL (0.0-0.2) Aspartate Amino Transf (AST/SGOT) 38 U/L (15-37) Alanine Aminotransferase (ALT/SGPT) 105 U/L (16-63) Alkaline Phosphatase 101 U/L (46-116) Total Protein 6.5 g/dL (6.4-8.2) Albumin 2.6 g/dL (3.4-5.0) Comment Review of Relevant I have reviewed the following items eileen (where applicable) has been applied. Labs Laboratory Tests Test 01/04/20 13:40 01/05/20 03:50 01/06/20 04:05 Sodium Level 134 mmol/L (136-145) 133 mmol/L (136-145) Potassium Level 4.1 mmol/L (3.5-5.1) 4.1 mmol/L (3.5-5.1) Chloride Level 99 mmol/L (98-107) 100 mmol/L (98-107) Carbon Dioxide Level 25 mmol/L (21-32) 23 mmol/L (21-32) Anion Gap 10 (6-14) 10 (6-14) Blood Urea Nitrogen 18 mg/dL (8-26) 19 mg/dL (8-26) Creatinine 1.0 mg/dL (0.7-1.3) 1.0 mg/dL (0.7-1.3) Estimated GFR (Cockcroft-Gault) 77.6 77.6 BUN/Creatinine Ratio 18 (6-20) Glucose Level 138 mg/dL (70-99) 131 mg/dL (70-99) Calcium Level 8.2 mg/dL (8.5-10.1) 8.1 mg/dL (8.5-10.1) Total Bilirubin 1.2 mg/dL (0.2-1.0) 0.6 mg/dL (0.2-1.0) Aspartate Amino Transf (AST/SGOT) 44 U/L (15-37) 38 U/L (15-37) Alanine Aminotransferase (ALT/SGPT) 116 U/L (16-63) 105 U/L (16-63) Alkaline Phosphatase 94 U/L (46-116) 101 U/L (46-116) Total Protein 6.5 g/dL (6.4-8.2) 6.5 g/dL (6.4-8.2) Albumin 2.5 g/dL (3.4-5.0) 2.6 g/dL (3.4-5.0) Albumin/Globulin Ratio 0.6 (1.0-1.7) White Blood Count 10.6 x10^3/uL (4.0-11.0) Red Blood Count 4.53 x10^6/uL (4.30-5.70) Hemoglobin 13.4 g/dL (13.0-17.5) Hematocrit 39.5 % (39.0-53.0) Mean Corpuscular Volume 87 fL (79-100) Mean Corpuscular Hemoglobin 30 pg (25-35) Mean Corpuscular Hemoglobin Concent 34 g/dL (31-37) Red Cell Distribution Width 13.2 % (11.5-14.5) Platelet Count 278 x10^3/uL (140-400) Neutrophils (%) (Auto) 74 % (31-73) Lymphocytes (%) (Auto) 11 % (24-48) Monocytes (%) (Auto) 11 % (0-9) Eosinophils (%) (Auto) 3 % (0-3) Basophils (%) (Auto) 1 % (0-3) Neutrophils # (Auto) 7.9 x10^3/uL (1.8-7.7) Lymphocytes # (Auto) 1.1 x10^3/uL (1.0-4.8) Monocytes # (Auto) 1.2 x10^3/uL (0.0-1.1) Eosinophils # (Auto) 0.3 x10^3/uL (0.0-0.7) Basophils # (Auto) 0.1 x10^3/uL (0.0-0.2) Direct Bilirubin 0.2 mg/dL (0.0-0.2) Laboratory Tests Test 3/8/20 04:05 Total Bilirubin 0.6 mg/dL (0.2-1.0) Direct Bilirubin 0.2 mg/dL (0.0-0.2) Aspartate Amino Transf (AST/SGOT) 38 U/L (15-37) Alanine Aminotransferase (ALT/SGPT) 105 U/L (16-63) Alkaline Phosphatase 101 U/L (46-116) Total Protein 6.5 g/dL (6.4-8.2) Albumin 2.6 g/dL (3.4-5.0) Medications Current Medications Sevoflurane (Ultane) 60 ml STK-MED ONCE IH ; Start 12/28/19 at 17:29; Stop 12/28/19 at 17:30; Status DC Midazolam HCl (Versed) 2 mg STK-MED ONCE .ROUTE ; Start 12/28/19 at 17:30; Stop 12/28/19 at 17:30; Status DC Fentanyl Citrate (Fentanyl 2ml Vial) 100 mcg STK-MED ONCE .ROUTE ; Start 12/28/19 at 17:30; Stop 12/28/19 at 17:30; Status DC Glycopyrrolate (Robinul) 1 mg STK-MED ONCE .ROUTE ; Start 12/28/19 at 17:30; Stop 12/28/19 at 17:31; Status DC Neostigmine [place] (Neostigmine Methylsulfate) 5 mg STK-MED ONCE .ROUTE ; Start 12/28/19 at 17:30; Stop 12/28/19 at 17:31; Status DC Rocuronium [place] (Zemuron) 50 mg STK-MED ONCE .ROUTE ; Start 12/28/19 at 17:30; Stop 12/28/19 at 17:31; Status DC Succinylcholine Chloride (Anectine) 200 mg STK-MED ONCE .ROUTE ; Start 12/28/19 at 17:30; Stop 12/28/19 at 17:31; Status DC Dexamethasone Sodium Phosphate (Decadron) 4 mg STK-MED ONCE .ROUTE ; Start 12/28/19 at 17:31; Stop 12/28/19 at 17:31; Status DC Ondansetron HCl (Zofran) 4 mg STK-MED ONCE .ROUTE ; Start 12/28/19 at 17:31; Stop 12/28/19 at 17:31; Status DC Ketorolac Tromethamine (Toradol 30mg Vial) 30 mg STK-MED ONCE .ROUTE ; Start 12/28/19 at 17:31; Stop 12/28/19 at 17:31; Status DC Lidocaine HCl (Lidocaine Pf 2% Vial) 5 ml STK-MED ONCE .ROUTE ; Start 12/28/19 at 17:31; Stop 12/28/19 at 17:31; Status DC Propofol 20 ml @ As Directed STK-MED ONCE IV ; Start 12/28/19 at 17:31; Stop 12/28/19 at 17:31; Status DC Metronidazole 100 ml @ 100 mls/hr 1X PREOP PRN IV PER PROTOCOL Last administered on 12/28/19at 17:37; Start 12/28/19 at 17:45; Stop 12/29/19 at 18:45 ; Status DC Bupivacaine HCl/ Epinephrine Bitart (Sensorcain-Epi 0.5%-1:080357 Mpf) 30 ml STK-MED ONCE .ROUTE Last administered on 12/28/19at 18:11; Start 12/28/19 at 17:34; Stop 12/28/19 at 17:34; Status DC Metronidazole 100 ml @ As Directed STK-MED ONCE IV ; Start 12/28/19 at 17:36; Stop 12/28/19 at 17:36; Status DC Metronidazole 100 ml @ 100 mls/hr 1X ONCE IV ; Start 12/28/19 at 17:45; Stop 12/28/19 at 18:44; Status DC Ondansetron HCl (Zofran) 4 mg PRN Q6HRS PRN IV NAUSEA/VOMITING; Start 12/28/19 at 18:00; Stop 12/29/19 at 17:59; Status DC Fentanyl Citrate (Fentanyl 2ml Vial) 25 mcg PRN Q5MIN PRN IV MILD PAIN 1-3; Start 12/28/19 at 18:00; Stop 12/29/19 at 17:59; Status DC Fentanyl Citrate (Fentanyl 2ml Vial) 50 mcg PRN Q5MIN PRN IV MODERATE TO SEVERE PAIN; Start 12/28/19 at 18:00; Stop 12/29/19 at 17:59; Status DC Morphine Sulfate (Morphine Sulfate) 1 mg PRN Q10MIN PRN IV SEVERE PAIN 7-10; Start 12/28/19 at 18:00; Stop 12/29/19 at 17:59; Status DC Ringer's Solution 1,000 ml @ 30 mls/hr Q24H IV Last administered on 12/28/19at 19:43; Start 12/28/19 at 17:50; Stop 12/29/19 at 05:49; Status DC Lidocaine HCl (Xylocaine-Mpf 1% 2ml Vial) 2 ml PRN 1X PRN ID PRIOR TO IV START; Start 12/28/19 at 18:00; Stop 12/29/19 at 17:59; Status DC Hydromorphone HCl (Dilaudid) 0.5 mg PRN Q10MIN PRN IV SEV PAIN, Second choice; Start 12/28/19 at 18:00; Stop 12/29/19 at 17:59; Status DC Prochlorperazine Edisylate (Compazine) 5 mg PACU PRN PRN IV NAUSEA, MRX1; Start 12/28/19 at 18:00; Stop 12/29/19 at 17:59; Status UNV Enoxaparin Sodium (Lovenox 40mg Syringe) 40 mg DAILY SQ Last administered on 01/06/20at 09:17; Start 12/29/19 at 09:00 Sodium Chloride (Normal Saline Flush) 3 ml QSHIFT PRN IV AFTER MEDS AND BLOOD DRAWS; Start 12/28/19 at 19:15 Potassium Chloride/Sodium Chloride 1,000 ml @ 75 mls/hr [id number] IV Last administered on 01/01/20at 08:33; Start 12/28/19 at 20:00; Stop 01/01/20 at 15:08; Status DC Dextrose (Dextrose 50%-Water Syringe) 12.5 gm PRN Q15MIN PRN IV SEE COMMENTS; Start 12/28/19 at 19:15 Oxycodone/ Acetaminophen (Percocet 5/325) 1 tab PRN Q4HRS PRN PO MILD PAIN, 1ST CHOICE Last administered on 12/29/19at 09:19; Start 12/28/19 at 19:15 Oxycodone/ Acetaminophen (Percocet 5/325) 2 tab PRN Q4HRS PRN PO MODERATE PAIN, SEVERE PAIN Last administered on 12/29/19at 18:14; Start 12/28/19 at 19:15 Naloxone HCl (Narcan) 0.4 mg PRN Q2MIN PRN IV SEE INSTRUCTIONS; Start 12/28/19 at 19:15 Sodium Chloride 1,000 ml @ 25 mls/hr Q24H IV ; Start 12/28/19 at 19:13; Stop 01/01/20 at 15:08; Status DC Hydromorphone HCl (Dilaudid) 1 mg PRN Q4HRS PRN IV SEVERE PAIN 7-10; Start 12/28/19 at 19:15; Status Cancel Docusate Sodium (Colace) 100 mg BID PO Last administered on 12/30/19at 08:30; Start 12/28/19 at 21:00; Stop 01/01/20 at 07:59; Status DC Ondansetron HCl (Zofran) 4 mg PRN Q6HRS PRN IVP NAUESA, 1ST CHOICE Last administered on 01/05/20at 17:37; Start 12/28/19 at 19:15 Cefazolin Sodium/ Dextrose 50 ml @ 100 mls/hr Q8HRS IV Last administered on 12/29/19at 14:19; Start 12/28/19 at 22:00; Stop 12/29/19 at 14:24; Status DC Metronidazole 100 ml @ 100 mls/hr Q12HR IV Last administered on 12/29/19at 09:18; Start 12/28/19 at 21:00; Stop 12/29/19 at 14:24; Status DC Info (FLU VACCINE SCREEN per RX) 1 each PRN 1X PRN MC SEE COMMENTS; Start 12/29/19 at 04:30; Status UNV Influenza Virus Vaccine Quadrival (Afluria Quad 2019-20 (3yr Up) Syringe) 0.5 ml ONCE ONCE VAX IM Last administered on 12/29/19at 09:21; Start 12/29/19 at 09:00; Stop 12/29/19 at 09:01; Status DC Piperacillin Sod/ Tazobactam Sod 3.375 gm/Sodium Chloride 50 ml @ 100 mls/hr Q6HRS IV Last administered on 01/05/20at 13:06; Start 12/29/19 at 18:00; Stop 01/05/20 at 13:42; Status DC Bismuth Subsalicylate (Pepto-Bismol) 786 mg PRN Q3HRS PRN PO DIARRHEA Last administered on 12/29/19at 22:33; Start 12/29/19 at 22:30 Lisinopril (Prinivil) 5 mg 1X ONCE PO Last administered on 12/30/19at 01:26; Start 12/30/19 at 01:30; Stop 12/30/19 at 01:31; Status DC Benzocaine (Hurricaine One) 1 spray 1X ONCE MM Last administered on 12/30/19at 12:30; Start 12/30/19 at 12:30; Stop 12/30/19 at 12:31; Status DC Lidocaine HCl (Glydo (Lidocaine) Jelly) 2 kenny 1X ONCE MM Last administered on 12/30/19at 12:30; Start 12/30/19 at 12:30; Stop 12/30/19 at 12:31; Status DC Throat Lozenges (Cepacol Sore Throat Lozenge) 1 maria g PRN Q2HRS PRN PO SORE THROAT; Start 12/30/19 at 15:00 Phenol (Chloraseptic) 1 spray PRN Q2HR PRN PO SORE THROAT- 2ND CHOICE; Start 12/30/19 at 15:00 Hydromorphone HCl (Dilaudid) 1 mg PRN Q4HRS PRN IV pain; Start 12/30/19 at 15:00 Pantoprazole Sodium (PROTONIX VIAL for IV PUSH) 40 mg DAILYAC IVP Last administered on 01/06/20at 09:17; Start 12/30/19 at 23:00 Enalaprilat (Vasotec Inj) 1.25 mg Q6HRS IVP Last administered on 12/30/19at 20:45; Start 12/30/19 at 21:00; Stop 12/30/19 at 23:15; Status DC Chlorpromazine HCl 12.5 mg/ Dextrose 50.5 ml @ 100 mls/hr PRN Q8HRS PRN IV HICCUPS Last administered on 01/05/20at 21:02; Start 12/30/19 at 20:30 Sodium Chloride 500 ml @ 500 mls/hr 1X ONCE IV Last administered on 12/30/19at 23:47; Start 12/30/19 at 23:30; Stop 12/31/19 at 00:29; Status DC Vancomycin HCl 1 gm/Sodium Chloride 250 ml @ 250 mls/hr Q12H IV ; Start 12/30/19 at 23:15; Status UNV Vancomycin HCl 2 gm/Sodium Chloride 500 ml @ 250 mls/hr 1X ONCE IV Last administered on 12/30/19at 23:47; Start 12/30/19 at 23:30; Stop 12/31/19 at 01:29; Status DC Vancomycin HCl 1.25 gm/Sodium Chloride 250 ml @ 167 mls/hr Q12H IV Last administered on 12/31/19at 13:17; Start 12/31/19 at 12:00; Stop 12/31/19 at 13:57; Status DC Vancomycin HCl (Vancomycin Trough Level) 1 each 1X ONCE MC ; Start 01/01/20 at 11:30; Stop 12/31/19 at 13:58; Status DC Vancomycin HCl (Vanco Per Pharmacy) 1 each PRN DAILY PRN MC SEE COMMENTS Last administered on 12/31/19at 02:17; Start 12/30/19 at 23:15; Stop 12/31/19 at 13:57; Status DC Enalaprilat (Vasotec Inj) 1.25 mg PRN Q6HRS PRN IVP SBP >160; Start 12/30/19 at 23:15 Sodium Chloride 1,000 ml @ 75 mls/hr [id number] IV Last administered on 12/31/19at 18:44; Start 12/31/19 at 16:45; Stop 01/01/20 at 15:08; Status DC Docusate Sodium (Colace Solution) 100 mg BID PO Last administered on 01/01/20at 08:32; Start 01/01/20 at 09:00; Stop 01/01/20 at 11:58; Status DC Potassium Chloride/Sodium Chloride 1,000 ml @ 30 mls/hr Q24H IV Last administered on 01/06/20at 03:40; Start 01/01/20 at 15:15 Amino Acids/ Electrolytes/ Dextrose 1,000 ml @ 80 mls/hr [id number] IV Last administered on 01/06/20at 03:39; Start 01/02/20 at 08:00 Bisacodyl (Dulcolax Supp) [address] Last administered on 01/02/20at 14:30; Start 01/02/20 at 14:30; Stop 01/02/20 at 14:31; Status DC Bisacodyl (Dulcolax Supp) [address] CONSTIPATION Last administered on 01/03/20at 16:32; Start 01/02/20 at 14:30 Iohexol (Omnipaque 240 Mg/ml) 40 ml 1X ONCE PO Last administered on 01/05/20at 11:40; Start 01/05/20 at 11:00; Stop 01/05/20 at 11:01; Status DC Iohexol (Omnipaque 300 Mg/ml) 75 ml 1X ONCE IV Last administered on 01/05/20at 11:40; Start 01/05/20 at 11:00; Stop 01/05/20 at 11:01; Status DC Info (CONTRAST GIVEN -- Rx MONITORING) 1 each PRN DAILY PRN MC SEE COMMENTS; Start 01/05/20 at 10:45; Stop 01/07/20 at 10:44 Amoxicillin/ Clavulanate Potassium (Augmentin 875/ 125mg) 1 tab BID PO Last administered on 01/06/20at 09:17; Start 01/05/20 at 21:00 Simethicone (Mylicon Drops) 40 mg PRN Q6HRS PRN PO GAS / BLOATING Last administered on 01/05/20at 20:15; Start 01/05/20 at 17:30 Vitals/I & O Vital Sign - Last 24 Hours 01/05/20 01/05/20 01/05/20 01/06/20 15:00 19:15 23:15 03:15 Temp 98.1 97.7 98.1 98.5 98.1 97.7 98.1 98.5 Pulse 92 96 91 80 Resp 18 19 18 18 B/P (MAP) 135/92 (106) 133/90 (104) 137/90 (106) 132/83 (99) Pulse Ox 96 98 98 97 O2 Delivery Room Air Room Air Room Air Room Air 01/06/20 07:59 Temp 98.8 98.8 Pulse 92 Resp 18 B/P (MAP) 136/89 (105) Pulse Ox 96 O2 Delivery Room Air Intake and Output 01/05/20 01/05/20 01/06/20 15:00 23:00 07:00 Intake Total 400 ml Output Total 990 ml 50 ml 730 ml Balance -990 ml -50 ml -330 ml Hemodynamically unstable?: No Is patient in severe pain?: No Is NPO status required?: Yes ROOSEVELT MONTANO MD Jan 06, 2020 11:02
--- NOTE | 2020-01-06 11:10 | PDOC ---
Infectious Disease Note Subjective Subjective Feeling better Reflux settle down Currently NPO, but tolerating po meds Loose stool Denies pain/N/V/F/C ROS ROS per HPI Vital Sign Vital Signs Vital Signs Date Time Temp Pulse Resp B/P (MAP) Pulse Ox O2 Delivery O2 Flow Rate FiO2 01/06/20 07:59 98.8 92 18 136/89 (105) 96 Room Air 98.8 01/05/20 08:00 2.0 Physical Exam PHYSICAL EXAM GENERAL: Sitting in the chair, alert, watching TV HEENT: Oropharynx is pink and moist. No thrush. NECK: Supple. LUNGS: Clear to auscultation. HEART: S1, S2. ABDOMEN: Obese, distended, nontender, BS present, HEMA intact - serous drainage. small incisions w/ ang in place. No signs of infection EXTREMITIES: No gross edema or cyanosis. DERMATOLOGIC: Warm to touch without signs of rash. NEUROLOGIC: Alert and answering questions appropriately. PIV Labs Lab Laboratory Tests Test 01/06/20 04:05 Total Bilirubin 0.6 mg/dL (0.2-1.0) Direct Bilirubin 0.2 mg/dL (0.0-0.2) Aspartate Amino Transf (AST/SGOT) 38 U/L (15-37) Alanine Aminotransferase (ALT/SGPT) 105 U/L (16-63) Alkaline Phosphatase 101 U/L (46-116) Total Protein 6.5 g/dL (6.4-8.2) Albumin 2.6 g/dL (3.4-5.0) Micro CT, 01/04 IMPRESSION: Mild dilation of several small bowel loops throughout the abdomen with relative decompression of the colon. There is perhaps transition in the right lower abdomen. Findings may be related to small bowel obstruction or ileus pattern . Close clinical and radiographic follow-up exams may be obtained to ensure interval stability. Objective Assessment Gangrenous appendicitis s/p laparoscopic appendectomy, 12/28 Leukocytosis - resolved Tachycardia - Card following - ? reactive Transamitis - clinimax SBO - on CT 12/30. Repeat CT 01/04 + partial small bowel obstruction or ileus. Hypertension Hyperglycemia Abdominal pain - better Plan Plan of Care Continue Augmentin (01/04) s/p flu vaccine, Monitor drain output Supportive care D/w nursing Attending Co-Sign The patient was seen and interviewed as well as examined at the bedside. The chart was reviewed. The case was discussed. Agree with the plan of care. SADI CARBAJAL APRN Jan 06, 2020 11:10 JOSEFA SAUNDERS MD Jan 06, 2020 12:59
--- NOTE | 2020-01-06 11:28 | PDOC ---
SURGICAL PROGRESS NOTE Subjective Feels much better no further emesis having loose stools Vital Signs Vital Signs Date Time Temp Pulse Resp B/P (MAP) Pulse Ox O2 Delivery O2 Flow Rate FiO2 01/06/20 07:59 98.8 92 18 136/89 (105) 96 Room Air 98.8 01/05/20 08:00 2.0 I&O Intake and Output 01/06/20 07:00 Intake Total 400 ml Output Total 1770 ml Balance -1370 ml Intake Oral 400 ml Output Urine Total 700 ml Emesis 990 ml Drainage Total 80 ml General: Alert, Oriented X3, Cooperative Abdomen: Soft, Other (drain serous, less distended ) Labs Laboratory Tests Test 01/04/20 13:40 01/05/20 03:50 01/06/20 04:05 Sodium Level 134 mmol/L (136-145) 133 mmol/L (136-145) Potassium Level 4.1 mmol/L (3.5-5.1) 4.1 mmol/L (3.5-5.1) Chloride Level 99 mmol/L (98-107) 100 mmol/L (98-107) Carbon Dioxide Level 25 mmol/L (21-32) 23 mmol/L (21-32) Anion Gap 10 (6-14) 10 (6-14) Blood Urea Nitrogen 18 mg/dL (8-26) 19 mg/dL (8-26) Creatinine 1.0 mg/dL (0.7-1.3) 1.0 mg/dL (0.7-1.3) Estimated GFR (Cockcroft-Gault) 77.6 77.6 BUN/Creatinine Ratio 18 (6-20) Glucose Level 138 mg/dL (70-99) 131 mg/dL (70-99) Calcium Level 8.2 mg/dL (8.5-10.1) 8.1 mg/dL (8.5-10.1) Total Bilirubin 1.2 mg/dL (0.2-1.0) 0.6 mg/dL (0.2-1.0) Aspartate Amino Transf (AST/SGOT) 44 U/L (15-37) 38 U/L (15-37) Alanine Aminotransferase (ALT/SGPT) 116 U/L (16-63) 105 U/L (16-63) Alkaline Phosphatase 94 U/L (46-116) 101 U/L (46-116) Total Protein 6.5 g/dL (6.4-8.2) 6.5 g/dL (6.4-8.2) Albumin 2.5 g/dL (3.4-5.0) 2.6 g/dL (3.4-5.0) Albumin/Globulin Ratio 0.6 (1.0-1.7) White Blood Count 10.6 x10^3/uL (4.0-11.0) Red Blood Count 4.53 x10^6/uL (4.30-5.70) Hemoglobin 13.4 g/dL (13.0-17.5) Hematocrit 39.5 % (39.0-53.0) Mean Corpuscular Volume 87 fL (79-100) Mean Corpuscular Hemoglobin 30 pg (25-35) Mean Corpuscular Hemoglobin Concent 34 g/dL (31-37) Red Cell Distribution Width 13.2 % (11.5-14.5) Platelet Count 278 x10^3/uL (140-400) Neutrophils (%) (Auto) 74 % (31-73) Lymphocytes (%) (Auto) 11 % (24-48) Monocytes (%) (Auto) 11 % (0-9) Eosinophils (%) (Auto) 3 % (0-3) Basophils (%) (Auto) 1 % (0-3) Neutrophils # (Auto) 7.9 x10^3/uL (1.8-7.7) Lymphocytes # (Auto) 1.1 x10^3/uL (1.0-4.8) Monocytes # (Auto) 1.2 x10^3/uL (0.0-1.1) Eosinophils # (Auto) 0.3 x10^3/uL (0.0-0.7) Basophils # (Auto) 0.1 x10^3/uL (0.0-0.2) Direct Bilirubin 0.2 mg/dL (0.0-0.2) Laboratory Tests Test 01/06/20 04:05 Total Bilirubin 0.6 mg/dL (0.2-1.0) Direct Bilirubin 0.2 mg/dL (0.0-0.2) Aspartate Amino Transf (AST/SGOT) 38 U/L (15-37) Alanine Aminotransferase (ALT/SGPT) 105 U/L (16-63) Alkaline Phosphatase 101 U/L (46-116) Total Protein 6.5 g/dL (6.4-8.2) Albumin 2.6 g/dL (3.4-5.0) Problem List s/p appy improved advance diet ELEANOR LEARY APRN Jan 06, 2020 11:28
[2020-01-06 11:59] VITALS: BP 139/91
[2020-01-06 15:59] VITALS: BP 155/83
--- NOTE | 2020-01-06 17:26 | NUR ---
This RN transferred pt from room 656 to room 578. Will assume care of this pt.
[2020-01-06 19:00] VITALS: BP 135/88
[2020-01-06 23:00] VITALS: BP 141/95
[2020-01-07 03:00] VITALS: BP 138/90
[2020-01-07 07:00] VITALS: BP 146/86
[2020-01-07] MEDS: PANTOPRAZOLE IV PUSH 40 MG VIAL. IVP SCH (08:00)
[2020-01-07] MEDS: AMOXICILLIN/K CLAV 875/125MG TABLET. PO SCH (08:47)
[2020-01-07] MEDS: ENOXAPARIN 40 MG/0.4 ML SYRINGE. SQ SCH (08:48)
--- NOTE | 2020-01-07 09:04 | PDOC ---
Infectious Disease Note Subjective Subjective Feeling better Reflux settle down Currently NPO, but tolerating po meds Loose stool Denies pain/N/V/F/C ROS ROS no n/v/d/ Vital Sign Vital Signs Vital Signs Date Time Temp Pulse Resp B/P (MAP) Pulse Ox O2 Delivery O2 Flow Rate FiO2 01/07/20 07:00 97.8 74 20 146/86 (106) 98 Room Air 97.8 01/06/20 08:00 2.0 Physical Exam PHYSICAL EXAM GENERAL: Sitting in the chair, alert, watching TV HEENT: Oropharynx is pink and moist. No thrush. NECK: Supple. LUNGS: Clear to auscultation. HEART: S1, S2. ABDOMEN: Obese, distended, nontender, BS present, HEMA intact - serous drainage. small incisions w/ ang in place. No signs of infection EXTREMITIES: No gross edema or cyanosis. DERMATOLOGIC: Warm to touch without signs of rash. NEUROLOGIC: Alert and answering questions appropriately. PIV Objective Assessment Gangrenous appendicitis s/p laparoscopic appendectomy, 12/28 Leukocytosis - resolved Tachycardia - Card following - ? reactive Transamitis - clinimax SBO - on CT 12/30. Repeat CT 01/04 + partial small bowel obstruction or ileus. Hypertension Hyperglycemia Abdominal pain - better Plan Plan of Care Continue Augmentin (01/04) s/p flu vaccine, Monitor drain output Supportive care D/w nursing JOSEFA SAUNDERS MD Jan 07, 2020 09:04
--- NOTE | 2020-01-07 09:40 | PDOC ---
ELEANOR LEARY APRN 01/07/20 0940: SURGICAL PROGRESS NOTE Subjective tolerating diet feels well having stools Vital Signs Vital Signs Date Time Temp Pulse Resp B/P (MAP) Pulse Ox O2 Delivery O2 Flow Rate FiO2 01/07/20 07:00 97.8 74 20 146/86 (106) 98 Room Air 97.8 01/06/20 08:00 2.0 I&O Intake and Output 01/07/20 07:00 Intake Total 1480 ml Output Total 70 ml Balance 1410 ml Intake Oral 760 ml IV Total 720 ml Drainage Total 70 ml # Voids 2 General: Alert, Oriented X3, Cooperative Abdomen: Soft, Other (drain serous) Labs Laboratory Tests Test 01/06/20 04:05 Total Bilirubin 0.6 mg/dL (0.2-1.0) Direct Bilirubin 0.2 mg/dL (0.0-0.2) Aspartate Amino Transf (AST/SGOT) 38 U/L (15-37) Alanine Aminotransferase (ALT/SGPT) 105 U/L (16-63) Alkaline Phosphatase 101 U/L (46-116) Total Protein 6.5 g/dL (6.4-8.2) Albumin 2.6 g/dL (3.4-5.0) Problem List s/p appy advance diet home soon script e scribed ALICE BARRERA MD 01/07/20 1601: SURGICAL PROGRESS NOTE Assessment/Plan pt seen agree with above home today f/u office ELEANOR LEARY APRN Jan 07, 2020 09:40 ALICE BARRERA MD Jan 07, 2020 16:08
[2020-01-07] MEDS ORDERED: OXYC1TAB15 PO (09:41)
[2020-01-07 11:00] VITALS: BP 148/93
--- NOTE | 2020-01-07 11:22 | PDOC ---
Subjective: Subjective: On the phone - on hold - says doing okay w/ stooling and eating, excited to advance diet more today, possible DC tomorrow. Objective: Vital Signs: Vital Signs Date Time Temp Pulse Resp B/P (MAP) Pulse Ox O2 Delivery O2 Flow Rate FiO2 01/07/20 11:00 97.6 80 18 148/93 (111) 97 Room Air 97.6 01/06/20 08:00 2.0 Imaging: CT A/P 01/04 IMPRESSION: Mild dilation of several small bowel loops throughout the abdomen with relative decompression of the colon. There is perhaps transition in the right lower abdomen. Findings may be related to small bowel obstruction or ileus pattern . Close clinical and radiographic follow-up exams may be obtained to ensure interval stability. PE: GEN: NAD - up in chair on phone LUNGS: CTAB HEART: RRR ABD: less distended, BS+, drain NEURO/PSYCH: A & O 3 A/P: S/p appendectomy SBO - resolving -- Now eating and stooling. Continue per surgery. Hemodynamically unstable?: No Is patient in severe pain?: No Is NPO status required?: Yes JERAMIE MUNOZ Jan 07, 2020 11:22
[2020-01-07] MEDS ORDERED: AMOX1TAB11 PO (11:57)
--- NOTE | 2020-01-07 13:10 | PDOC3 ---
Discharge Summary Visit Information Date of Admission: Dec 28, 2019 Date of Discharge: Jan 07, 2020 Final Diagnosis sepsis acute abdomen malnutrition hyponatremia, reactive Gangrenous appendicitis - s/p appendectomy day 12/28/2019 SBO Brief Hospital Course Allergies Allergies Coded Allergies Type Severity Reaction Last Updated Verified prochlorperazine Allergy Intermediate 12/30/19 Yes Vital Signs Vital Signs Date Time Temp Pulse Resp B/P (MAP) Pulse Ox O2 Delivery O2 Flow Rate FiO2 01/07/20 11:00 97.6 80 18 148/93 (111) 97 Room Air 97.6 01/06/20 08:00 2.0 Lab Results Laboratory Tests Test 01/06/20 04:05 Total Bilirubin 0.6 mg/dL (0.2-1.0) Direct Bilirubin 0.2 mg/dL (0.0-0.2) Aspartate Amino Transf (AST/SGOT) 38 U/L (15-37) Alanine Aminotransferase (ALT/SGPT) 105 U/L (16-63) Alkaline Phosphatase 101 U/L (46-116) Total Protein 6.5 g/dL (6.4-8.2) Albumin 2.6 g/dL (3.4-5.0) Brief Hospital Course Mr. 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 Pain shifted to the right lower quadrant area associated with nausea, vomiting and chills. A CT abdomen/pelvis showed a showed a distended appendix with moderate periappendiceal inflammatory change. Dr. Garcia performed a laparoscopic appendectomy and placement of a 19-[place] Javy drain on 12/28/2019. The appendix was gangrenous and friable without obvious periappendiceal abscess. General surgery, ID, Cardiology, GI consulted. to surg 12/28, septic abdomenn, drain, and complications listed below, 3/: Developed SBO, NGT placed. 32: CT with SBO 12/31: Still distended 3: ng out, emesis with jello. Pathology - Acute appendicitis with serosal exudate. 01/02: Stool today. Still very distended and has intermittent abdominal pain. Has a HEMA drain placed in the right lower quadrant with yellow fluid noted in bulb. 01/03: c/o hiccups today. Still having BM. Feels some nausea, asking for something more for his hiccups 01/04: CT abdomen showing RLQ ileus vs SBO. Hiccups difficult to control Feeling improved. dc home on 01/06 Discharge Information Condition at Discharge: Improved Follow Up: Weeks Disposition/Orders: D/C to Home Scheduled Amoxicillin/Potassium Clav (Amox Tr-K Clv 875-125 Mg Tab) 1 Each Tablet, 1 TAB PO BID for appendicitis, #10 Prescribed by: LISANDRO LOCKHART on 01/07/20 1157 Scheduled PRN Oxycodone/Apap 5-325 (Percocet 5-325 Mg Tablet ) 1 Each Tablet, 1 TAB PO PRN Q4HRS PRN for MILD PAIN, 1ST CHOICE, #30 Ref 0 Prescribed by: Corina Cruz on 01/07/20 0941 Patient Instructions Patient Instructions face to face plan discussed, < 30 min Hemodynamically unstable?: No Is patient in severe pain?: No Is NPO status required?: Yes LISANDRO LOCKHART MD Jan 07, 2020 13:10
--- NOTE | 2020-01-07 13:35 | NUR ---
SW following. Discussed with RN, pt from home. HEMA drain, full liquid diet. RN advised pt is discharging home with self care this afternoon. No SW needs.
[2020-01-07 15:00] VITALS: BP 137/92
--- NOTE | 2020-01-07 17:40 | NUR ---
PATIENT LEAVES THE UNIT PER W/C, EMOTIONAL SUPPORT GIVEN, FOLLOW UP APPOINTMENTS ENCOURAGED.
== END 2020-01-07 17:40 | disposition home or self-care (01) | DRG 853 ==
LOC: 4 NORTH 17:24 → 2 SOUTH 12-31 18:00 → 4 NORTH 12-31 18:00 → UNDODISIN 01-01 16:16 → 2 SOUTH 01-01 16:16 → 6 SOUTH 01-03 11:16 → 5 SOUTH 01-06 16:40
PROVIDERS: ADMIT Internal Medicine; ATTEND Internal Medicine
PROC: 0DTJ4ZZ Resection of Appendix, Percutaneous Endoscopic Approach (ICD-10-PCS; principal; 2019-12-28 17:29)
PROC: 0D9670Z Drainage of Stomach with Drainage Device, Via Natural or Artificial Opening (ICD-10-PCS; 2020-01-01)
DX: A41.9 Sepsis, unspecified organism (principal); E43 Unspecified severe protein-calorie malnutrition; K35.891 Other acute appendicitis without perforation, with gangrene; K56.609 Unspecified intestinal obstruction, unspecified as to partial versus complete obstruction; I47.2 Ventricular tachycardia; E87.1 Hypo-osmolality and hyponatremia; K56.600 Partial intestinal obstruction, unspecified as to cause; K56.7 Ileus, unspecified; E11.65 Type 2 diabetes mellitus with hyperglycemia; E78.5 Hyperlipidemia, unspecified; K21.9 Gastro-esophageal reflux disease without esophagitis; I10 Essential (primary) hypertension; Z68.29 Body mass index [BMI] 29.0-29.9, adult; Z87.891 Personal history of nicotine dependence; Z88.8 Allergy status to other drugs, medicaments and biological substances; Z82.49 Family history of ischemic heart disease and other diseases of the circulatory system
CPT/HCPCS: 36415; 74018; 74176; 74177; 80048; 80053; 80061; 80076; 83605; 83735; 84443; 85007; 85025; 88304; 90471; 90686; 93005; A7015; C9113; J0330; J0696; J1100; J1650; J1885; J2001; J2250; J2405; J2543; J2704; J2710; J3010; J3230; J3370; J3480; J3490; J7030; J7040; J7050; J7060; J7120; Q9966; Q9967; G0378